=== PATIENT | male | born 1955 | race Caucasian/White ===

== ENCOUNTER 2025-05-08 23:00 | Emergency (ER) | payer OTHER, SELFPAY ==
[2025-05-08 23:04] VITALS: BMI 22.5
[2025-05-08 23:12] VITALS: BP 113/69
[2025-05-08 23:26] LABS: Hematocrit 30.0 % (39.0-52.0); Hemoglobin 9.4 g/dL (13.0-18.0); Mean Corp Hgb Conc. 31.3 g/dL (33.0-37.0); Mean Corpuscular Volume 80.4 fL (80.0-94.0); Nucleated Red Blood Cells % 0 % (-); Platelet Count 153 10^3/uL (130-400); Red Cell Dist. Width 15.8 % (11.5-14.5)
[2025-05-08 23:45] LABS: ALT (SGPT) 41 U/L (0-50); AST (SGOT) 48 U/L (17-59); Albumin 3.9 g/dl (3.5-5.0); Alkaline Phosphatase 63 U/L (38-126); Blood Urea Nitrogen 77 mg/dl (9-20); Calcium 9.0 mg/dl (8.4-10.2); Carbon Dioxide 20 mmol/L (22-30); Chloride 102 mmol/L (98-107); Estimated Creatinine Clearance 16 ml/min; Glucose 277 mg/dl (70-99); Potassium 5.2 mmol/L (3.5-5.1); Sodium 130 mmol/L (135-145); Total Protein 6.3 g/dl (6.3-8.2); eGFR 15.62
[2025-05-09 00:07] VITALS: BP 141/59
[2025-05-09 01:00] VITALS: BP 132/71
[2025-05-09 02:00] VITALS: BP 154/91
[2025-05-09 03:00] VITALS: BP 116/77
[2025-05-09 04:00] VITALS: BP 123/58
--- NOTE | 2025-05-09 04:26 | ED.GENMED ---
History of Present Illness
General
Chief Complaint: Fall
Source: patient
Exam Limitations: none
Time Seen by Provider: 05/08/25 23:16
Nursing documentation reviewed up to this point in time: agreed with
History of Present Illness
History of Present Illness:
Note:
CHIEF COMPLAINT(S)
Fall
HISTORY OF PRESENT ILLNESS
The patient is a 70-year-old male who presented to the emergency department after experiencing a fall. The circumstances surrounding the fall are unclear due to language barriers, but the phrase 'time to fall' was mentioned repeatedly. The patient
attempted to communicate in various languages, including what was presumed to be Kyrgyz and possibly Igbo, but communication was unsuccessful even with translation support. Further clarification of the incident and potential reasons for the fall
could not be obtained during the interaction due to these communication barriers.
PHYSICAL EXAM
General: Alert, no acute distress.
Skin: Warm, dry.
Head: Normocephalic, atraumatic.
Neck: Supple, trachea midline.
Eye, ears, nose, mouth, and throat: Oral mucosa moist.
Cardiovascular: Normal peripheral perfusion, no edema. Regular rate and rhythm
Respiratory: Respirations are non-labored. Lungs clear to auscultation bilaterally
Gastrointestinal: Abdomen non-distended.
Back: Normal range of motion, normal alignment.
Musculoskeletal: Normal range of motion, normal strength.
Neurological: Alert and oriented to person, place, time, and situation, no focal neurological deficit observed.
Psychiatric: Cooperative, appropriate mood & affect.
PROBLEM LIST
Acute:
Fall
DIFFERENTIAL DIAGNOSIS
The Differential Diagnosis includes, in no particular order and is not limited to:
1. Syncope
2. Vestibular dysfunction
3. Orthostatic hypotension
4. Transient ischemic attack
5. Cerebrovascular accident
6. Cardiac arrhythmia
7. Medication side effect
8. Dehydration
9. Neuropathy
10. Mechanical fall
Disposition:
SUMMARY OF ENCOUNTER
The patient, a 70-year-old male with a history of frequent falls from a skilled nursing, was evaluated in the emergency department after being found down. The patient did not have any specific complaints and appeared stable. A CT scan of the head was
performed and interpreted as negative, ruling out any acute intracranial pathology.
DISPOSITION
The patient was returned to the nursing facility after ensuring acceptance by the nursing staff.
INDEPENDENT REVIEW OF LABS AND INTERPRETATION OF TESTS
My independent interpretation of the CT scan of the head is negative for acute findings.
MEDICAL DECISION MAKING
- Complexity of Data Reviewed: Chronic conditions affecting care including history of frequent falls.
- Data:
- Category 1: My independent interpretation of the CT scan of the head is negative for acute findings.
- Risk: Consideration of Admission/Observation: Escalation of care including admission/observation was considered given the complexity and risk of the patients presenting complaint, history of frequent falls, and potential for significant injury.
However, ultimately I feel the patient is safe for return to the skilled nursing with close monitoring by the staff. The imaging study was reassuring, and the patient is agreeable with the return to the facility.
DIAGNOSIS
- Unspecified fall, initial encounter (ICD-10: W19.XXXA)
- Other specified intracranial injury, initial encounter (negative CT findings) (ICD-10: S06.898A)
Phy Exam
Physical Exam
Physical Exam:
.
Course
Orders/Labs/Results
Orders:
Orders
05/08/25 23:09
CT Head W/o Iv Contrast Urgent
Comment:
Reason For Exam: fell, poss hit head?
05/08/25 23:16
CT Cervical Spine W/o Iv Contr Urgent
Comment:
Reason For Exam: fall
05/08/25 23:18
Complete Blood Count/With Diff Urgent
Comprehensive Metabolic Panel Urgent
Abnormal Lab Results
05/08/25
23:18
RBC 3.73 L 10^6/uL
(4.70-6.10)
Hgb 9.4 L g/dL
(13.0-18.0)
Hct 30.0 L %
(39.0-52.0)
MCH 25.2 L pg
(27.0-31.0)
MCHC 31.3 L g/dL
(33.0-37.0)
RDW 15.8 H %
(11.5-14.5)
MPV 10.7 H fL
(7.4-10.4)
Abs Immat Gran (auto) 0.1 H 10^3/uL
(0-0.05)
Absolute Lymphs (auto) 0.9 L 10^3/uL
(1.2-3.4)
Immature Gran % 0.8 H %
(0-0.5)
Neutrophils % 82.6 H %
(42.2-75.2)
Lymphocytes % 12.3 L %
(20.5-51.1)
Sodium 130 L mmol/L
(135-145)
Potassium 5.2 H mmol/L
(3.5-5.1)
Carbon Dioxide 20 L mmol/L
(22-30)
BUN 77 H mg/dl
(9-20)
Creatinine 3.9 H mg/dL
(0.7-1.3)
Glucose 277 H mg/dl
(70-99)
05/08/25 23:18
05/08/25 23:18
Vital Signs
Initial and Last Documented VS:
Initial Vital Signs
Temp
98.2 F
05/08/25 23:04
Last Documented Vital Signs
Temp Pulse Resp BP Pulse Ox
98.2 F 75 18 154/91 100
05/08/25 23:04 05/08/25 23:12 05/08/25 23:12 05/09/25 02:00 05/09/25 04:27
*Radiology
Radiology exam reviewed: radiology read reviewed
*Pulse Oximetry
SaO2: 100
Patient hypoxic: no
*Critical Care Note
Total Time (30-74mins, 75-104mins- exclusive of procedures): Not Applicable
Update Note
Update Note:
NAME: SHIKHA VICK
DATE OF EXAM: 05/08/2025
Patient No: [id number]
Physician: LASHAY^Carleen
Date of : 1955
Past Medical History (entered by Technologist):
Reason For Exam (entered by Technologist):
Other Notes (entered by Technologist): pt arrives via EMS from [facility] after sustaining an unwitnessed fall. pt states he did not hit his head and fell onto his knees first, staff unsure. pt on plavix.
Additional Information (per [facility] Radiologist):
NONCONTRAST HEAD CT
IMPRESSION
No evidence of acute intracranial abnormality. No evidence of hemorrhage or mass.
Mild periventricular and subcortical regions of low attenuation likely representing chronic small vessel ischemic disease.
Ventricles and sulci are prominent compatible with mild atrophy.
Bones are unremarkable.
Sinuses are unremarkable.
NONCONTRAST CT CERVICAL SPINE:
IMPRESSION
Mild motion
No fractures. Mild anterolisthesis. This is probably related to degenerative changes, assuming no signs and symptoms of ligamentous instability.
Paraspinous soft tissues are unremarkable.
Stent in the right carotid
Case finalized on 05/09/25 00:18 EST
Hoa Moulton M.D.
This report has been electronically signed and verified by the Radiologist whose name is printed above.
ED Attending Note
-
Portions of this chart may have been created with voice recognition software.� Occasional wrong word or��sound alike� substitutions may have occurred due to the inherent limitations of voice recognition software.
Discharge Plan
Departure
Patient Disposition: Usp/SNF
Date of Disposition: 05/09/25
Time of Disposition: :
Condition: Fair
Discharge Problem:
Falls frequently
Instructions: Preventing falls in adults, BLOOD PRESSURE
Referrals:
Scott Sevilla MD [Family Provider]
Activity Restrictions/Additional Instructions:
Thank You for choosing [facility].
It was a pleasure meeting you and taking part in your care. We hope for your continued healing and wellness.
Please read discharge instructions in their entirety. However, they are for general education and may not describe your exact diagnosis at discharge. Information on your ER visit and medical conditions were discussed with you along with appropriate
follow up information...
If indicated, please take your medications as instructed and indicated on discharge paperwork.
Please schedule a follow up appointment as directed. Call to schedule an appointment
Please return to the emergency department with ANY change in, persisting, or worsening of symptoms. If any of your symptoms do not improve, or persist, or become more severe within 6-12 hours, please return to the emergency department for further
care.
Please return to the emergency department if you develop a headache, neck pain/stiffness, fever greater than 100.4F, chest pain, shortness of breath, persistent nausea, vomiting, slurred speech, difficulty walking, numbness/tingling, weakness, signs
of infection or any other symptoms that are worrisome to you.
If you have any questions or concerns please do not hesitate to call the Hospital at .
Interventions
Interventions:
*Risk Screen - Suicide Last Done: 05/08/25 23:04
*General Assessment Last Done: 05/08/25 23:04
*Neglect/Abuse Screening Last Done: 05/08/25 23:04
*ED- Fall Risk Assessment Last Done: 05/08/25 23:04
*ED COVID-19 Vaccine History Last Done: 05/08/25 23:04
*ED Influenza Vaccine History Last Done: 05/08/25 23:04
ED-Musculoskeletal Assessment Last Done: 05/08/25 23:04
ED- Neurological Assessment Last Done: 05/08/25 23:04
ED-Skin Assessment Last Done: 05/08/25 23:04
Discharge Date and Time
Print Language: South Korean
[2025-05-09 04:31] VITALS: BP 123/58
== END 2025-05-09 04:43 ==
LOC: EMR 23:00
PROVIDERS: EMERGENCY PHYSICIAN Student in an Organized Health Care Education/Training Program; FAMILY PHYSICIAN Internal Medicine
DX: R29.6 Repeated falls (principal); M43.10 Spondylolisthesis, site unspecified; Z79.02 Long term (current) use of antithrombotics/antiplatelets; W19.XXXA Unspecified fall, initial encounter; Y92.129 Unspecified place in nursing home as the place of occurrence of the external cause
CPT/HCPCS: 99284; 70450; 72125; 80053; 85025

== ENCOUNTER 2025-05-31 23:56 | Inpatient (IN) | payer MEDICARE, OTHER, SELFPAY ==
[2025-05-31 21:03] VITALS: BP 165/77
[2025-05-31 21:05] VITALS: BP 165/77
[2025-05-31 21:30] LABS: Hematocrit 20.5 % (39.0-52.0); Hemoglobin 6.4 g/dL (13.0-18.0); Mean Corp Hgb Conc. 31.2 g/dL (33.0-37.0); Mean Corpuscular Volume 80.1 fL (80.0-94.0); Nucleated Red Blood Cells % 0 % (-); Platelet Count 175 10^3/uL (130-400); Red Cell Dist. Width 18.5 % (11.5-14.5)
[2025-05-31 21:35] LABS: INR 1.28; PT 16.3 Sec (11.4-14.6)
[2025-05-31 22:00] VITALS: BP 165/80
[2025-05-31 22:04] LABS: ALT (SGPT) 13 U/L (0-50); AST (SGOT) 22 U/L (17-59); Albumin 3.7 g/dl (3.5-5.0); Alkaline Phosphatase 73 U/L (38-126); Blood Urea Nitrogen 55 mg/dl (9-20); Calcium 7.7 mg/dl (8.4-10.2); Carbon Dioxide 23 mmol/L (22-30); Chloride 105 mmol/L (98-107); Estimated Creatinine Clearance 16 ml/min; Glucose 125 mg/dl (70-99); Potassium 3.7 mmol/L (3.5-5.1); Sodium 138 mmol/L (135-145); Total Protein 6.2 g/dl (6.3-8.2); eGFR 15.62
--- NOTE | 2025-05-31 22:13 | ED.GENMED ---
History of Present Illness
General
Chief Complaint: Abnormal Lab Value
Source: patient and family (daughter states that the patient has had blood transfusions at an outside hospital [facility] in the past. She states he was also getting erythropoietin in the past. She does not recall his hemoglobin being as low as
6.4.)
Time Seen by Provider: 05/31/25 21:04
History of Present Illness
History of Present Illness:
Note:
CHIEF COMPLAINT(S)
Low hemoglobin level (6.4 g/dL).
HISTORY OF PRESENT ILLNESS
The patient is a 70-year-old male with a history of anemia who presented with significantly low hemoglobin levels at 6.4 g/dL. The red blood cell count is 2.4 million cells/mcL, and the hematocrit is 20%. The patient shows a baseline confusion
attributed to a mentioned episode of 'weird dementia.' He denies any pain or discomfort currently. The immediate concern is to determine the etiology of the drop in hemoglobin levels as no clear cause has been established.
PAST MEDICAL AND SURGICAL HISTORY
Anemia.\\
Dementia
Chronic kidney disease
Hypertension
Hyperlipidemia
Atrial fibrillation on Eliquis
CHF
GERD
Diabetes
CHRONIC MEDICAL CONDITIONS SIGNIFICANTLY AFFECTING CARE
Dementia.
PHYSICAL EXAM
General: Alert, no acute distress, though slightly confused.
Skin: Warm, dry.
Head: Normocephalic, atraumatic.
Neck: Supple, trachea midline.
Eye Ears, nose, mouth and throat: Oral mucosa moist.
Cardiovascular: Normal peripheral perfusion, no edema.
Respiratory: Respirations are non-labored.
Gastrointestinal: Abdomen is soft and non-tender.
Back: Normal range of motion, normal alignment.
Musculoskeletal: Normal range of motion, normal strength.
Neurological: Slight confusion, no focal neurological deficit observed.
Psychiatric: Cooperative, appropriate mood & affect.
Rectal Exam: Negative for blood.
EXTERNAL RECORDS REVIEWED
The patients past records were referenced for further evaluation of anemia management. Hemoglobin in April 2025 was 9.4
PROBLEM LIST
Acute:
- Anemic episode with severely low hemoglobin levels.
Chronic:
- Dementia
- Anemia
- Chronic kidney disease
PLAN
Further diagnostic workup to elucidate the cause of the current anemia. Review past external records, including previous blood work and imaging, if available.
DIFFERENTIAL DIAGNOSIS
The Differential Diagnosis includes, in no particular order and is not limited to:
1. Acute gastrointestinal bleed
2. Chronic kidney disease
3. Hemolytic anemia
4. Bone marrow suppression or infiltration
5. Vitamin B12 deficiency
6. Folate deficiency
7. Iron deficiency anemia
8. Leukemia
9. Myelodysplastic syndrome
10. Medication-induced anemia
Disposition:
SUMMARY OF ENCOUNTER
The patient, a 70-year-old male with a history of chronic renal failure, presented to the emergency department with severe anemia, with a hemoglobin level of 6.4 g/dL. This visit was prompted by outpatient lab results. The white blood cell count and
platelets were normal upon evaluation. Chemistry panels confirmed chronic renal failure with a creatinine level of 3.9, consistent with previous results from May 08, 2025. His hemoglobin was previously recorded at 9.4 g/dL in April 2025. The
patient is hemodynamically stable, displays baseline confusion, and denied any discomfort. A rectal exam was negative for blood. After discussing with his daughters, it was decided to transfuse the patient with two units of blood and admit him for
further management, as he is not a candidate for dialysis due to the likelihood of pulling out catheters.
DISPOSITION
Admit.
PLAN
Transfuse two units of blood and admit for further management of anemia and chronic renal failure.
INDEPENDENT REVIEW OF LABS AND INTERPRETATION OF TESTS
My independent review of CBC shows a hemoglobin level of 6.4 g/dL.
My independent review of comprehensive metabolic panel indicates chronic renal failure with a creatinine level of 3.9.
MEDICAL DECISION MAKING
-Number and Complexity of Problems Addressed: Chronic conditions affecting care include anemia and chronic renal failure. Differential diagnosis includes acute gastrointestinal bleed, chronic kidney disease, hemolytic anemia, bone marrow suppression
or infiltration, vitamin B12 deficiency, folate deficiency, iron deficiency anemia, leukemia, myelodysplastic syndrome, and medication-induced anemia.
-Data:
Category 1
Non-emergency department records reviewed, including past lab results.
External record reviewed from previous lab results: Hemoglobin levels from April 2025 indicating 9.4 g/dL and consistent creatinine levels.
Category 2
My independent interpretation of all prior lab values, confirming anemia and chronic renal impairment.
Category 3
Discussion of management with the patients daughters confirmed consent for blood transfusion and admission.
DIAGNOSIS
Severe anemia (D64.9)
Chronic kidney disease, Stage 3 (N18.3)
Phy Exam
Physical Exam
Physical Exam:
.
Course
Orders/Labs/Results
Orders:
Orders
05/31/25 21:17
IV Insert/Care/Rem.- Treatment PRN
05/31/25 21:18
Type+Screen Urgent
Complete Blood Count/With Diff Urgent
Comprehensive Metabolic Panel Urgent
Prothrombin Time Urgent
05/31/25 22:12
* Blood Bank Products Routine
Blood Bank Products: *Packed RBC Leuko (PRBC's
Quantity: 2
Transfuse Today: Yes
Reason: Anemia
IV Insert/Care/Rem.- Treatment PRN
Abnormal Lab Results
05/31/25
21:18
RBC 2.56 L 10^6/uL
(4.70-6.10)
Hgb 6.4 L* g/dL
(13.0-18.0)
Hct 20.5 L* %
(39.0-52.0)
MCH 25.0 L pg
(27.0-31.0)
MCHC 31.2 L g/dL
(33.0-37.0)
RDW 18.5 H %
(11.5-14.5)
Absolute Lymphs (auto) 0.9 L 10^3/uL
(1.2-3.4)
Lymphocytes % 18.2 L %
(20.5-51.1)
PT 16.3 H Sec
(11.4-14.6)
BUN 55 H mg/dl
(9-20)
Creatinine 3.9 H mg/dL
(0.7-1.3)
Glucose 125 H mg/dl
(70-99)
Calcium 7.7 L mg/dl
(8.4-10.2)
Total Protein 6.2 L g/dl
(6.3-8.2)
Crossmatch IS Only See Detail
05/31/25 21:18
05/31/25 21:18
Vital Signs
Initial and Last Documented VS:
Initial Vital Signs
Temp Pulse Resp Pulse Ox
97.5 F 83 20 100
05/31/25 21:00 05/31/25 21:00 05/31/25 21:00 05/31/25 21:00
Last Documented Vital Signs
Temp Pulse Resp BP Pulse Ox
97.5 F 83 20 165/77 100
05/31/25 21:00 05/31/25 21:00 05/31/25 21:00 05/31/25 21:05 05/31/25 22:15
*Pulse Oximetry
SaO2: 100
Oxygen Mode of Delivery: Room air
Patient hypoxic: no
*Critical Care Note
Total Time (30-74mins, 75-104mins- exclusive of procedures): 30 minutes
ED Attending Note
-
Portions of this chart may have been created with voice recognition software.� Occasional wrong word or��sound alike� substitutions may have occurred due to the inherent limitations of voice recognition software.
Discharge Plan
Departure
Patient Disposition: Admit
Date of Disposition: 05/31/25
Time of Disposition: 22:20
Admit to: Telemetry
Presentation/result/management discussed w/ accepting MD/DO: Hospitalist
Discharge Problem:
Anemia, Chronic renal failure
Referrals:
Scott Sevilla MD [Family Provider]
Interventions
Interventions:
*Risk Screen - Suicide Last Done: 05/31/25 21:05
*General Assessment Last Done: 05/31/25 21:05
*Neglect/Abuse Screening Last Done: 05/31/25 21:05
*ED- Fall Risk Assessment Last Done: 05/31/25 21:33
*ED COVID-19 Vaccine History Last Done: 05/31/25 21:33
*ED Influenza Vaccine History Last Done: 05/31/25 21:33
Discharge Date and Time
Print Language: Kuwaiti
[2025-05-31 22:56] VITALS: BP 160/94
[2025-05-31 23:15] VITALS: BP 153/67
--- NOTE | 2025-05-31 23:45 | HPS.HSE ---
Family Physician
-
Family Physician: Scott Sevilla MD
Chief Complaint
-
Anemia
History of Present Illness
Patient is a 70y M with PMH significant for ASCVD, A-Fib, hypertension and CKD IV who presents to ED for evaluation of anemia. Patient had routine outpatient labs done showing worsening anemia and he was sent to the ED for further evaluation.
Pateint is pleasantly demented and has no complaints at present. History obtained from patient and family at the bedside with family serving as interpreters.
Patient with recent admissions to [facility] where he has received the bulk of his care. Following his most recent hospitalization he was transferred to a new ME.
Labs were done today showing Hgb = 6.4 and patient was sent to the ED for evaluation.
Patient has not had any noted bleeding / evident blood loss. He has had some falls - most recent was about 10 days ago - but with no evident injury / significant trauma.
patient offers no complaints of chest pain, dyspnea, etc.
Family does note significant LE swelling that has been present for the past 5-7 days.
He was newly started on several medications in the past week including lorazepam, buspirone and bumetanide.
Daughter reports issues in the past with worsening anemia due to newly introduced Psych medications.
Patient was also previously maintained on EPO infusions every week or so - but has not received them in some time, reportedly b/c his Hgb has been out of range for treatment.
Family notes that his Hgb has chronically ranged from about 7 - 10 g/dL.
He is not a dialysis candidate. He is a high fall risk due to his dementia and baseline ambulatory dysfunction - he frequently gets OOB and tries to walk almost always resulting in falls.
Medical History
Past Medical History
Past Medical History: Reports Other
Additional Past Medical History:
ASCVD
CVA with L Weakness
Paroxysmal Atrial Fibrillation
Hypertension
DM-II
CKD IV
Anemia of CKD
Senile Dementia with Behavioral Disturbance
Past Surgical History: Reports Other
Additional Past Surgical History:
Right Carotid Stent
CABG
PPM
Social History
Tobacco: Non-smoker
Alcohol: None
Drug: None
Living: Care Home
Family History
Family History: Not pertinent
Allergies / Home Medications
Allergies reflects when Allergies were last updated in [employer].
Home Medications with original date entered in [employer]
Allergy/Medication List:
Allergies
Allergy/AdvReac Type Severity Reaction Status Date / Time
No Known Allergies Allergy Verified 05/31/25 21:00
Home Medications
acetaminophen 325 mg tablet (Tylenol) 650 mg PO Q6H PRN mild pain 05/31/25
amlodipine 10 mg tablet 10 mg PO DAILY 05/31/25
apixaban 2.5 mg tablet (Eliquis) 2.5 mg PO BID 05/31/25
atorvastatin 40 mg tablet 40 mg PO HS 05/31/25
bumetanide 1 mg tablet 1 mg PO DAILY 05/31/25
buspirone 5 mg tablet 5 mg PO BID 05/31/25
carvedilol 25 mg tablet 25 mg PO BID 05/31/25
cholecalciferol (vitamin D3) 25 mcg (1,000 unit) tablet 25 mcg PO DAILY 05/31/25
clopidogrel 75 mg tablet 75 mg PO DAILY 05/31/25
cyanocobalamin (vitamin B-12) 100 mcg tablet 100 mcg PO DAILY 05/31/25
divalproex 500 mg tablet,extended release 24 hr (Depakote ER) 500 mg PO DAILY 05/31/25
escitalopram oxalate 10 mg tablet (Lexapro) 10 mg PO DAILY 05/31/25
fluticasone furoate 27.5 mcg/actuation nasal spray,suspension 1 spray intranasal DAILY 05/31/25
folic acid 1 mg tablet 1 mg PO DAILY 05/31/25
hydralazine 25 mg tablet 25 mg PO TID 05/31/25
insulin aspart U-100 100 unit/mL subcutaneous solution (Novolog U-100 Insulin aspart) 1 sliding scale dose SC DIRECTED 05/31/25
achkcr-dawzdejx-yrcdxin (porcine) 16,000-60,000-60,000 unit tablet 1 tab PO AC 05/31/25
lorazepam 0.5 mg tablet 0.25 mg PO BID PRN anxiety 05/31/25
melatonin 3 mg tablet 6 mg PO HS 05/31/25
pantoprazole 40 mg tablet,delayed release 40 mg PO DAILY 05/31/25
sodium zirconium cyclosilicate 10 gram oral powder packet 10 g PO DAILY 05/31/25
tamsulosin 0.4 mg capsule 0.4 mg PO HS 05/31/25
trazodone 50 mg tablet 50 mg PO BID 05/31/25
trifluoperazine 2 mg tablet 4 mg PO BID 05/31/25
Review of Systems
-
Unable to obtain full review of systems at this time due to: Dementia
History Source: Patient and Family
Constitutional: Denies Fever
Respiratory: Denies Cough or Trouble Breathing
Cardiac: Denies Chest Pain or Palpitations
Abdomen/GI: Denies Abdominal Pain, Nausea, Vomiting, Diarrhea, Bloody Stools or Black Stools
: Denies Bleeding
Musculoskeletal: Reports Edema
Neurological: Denies Dizzy or Headache
Psych: Reports Dementia
Physical Exam
Vital Signs
Vital Signs
Temp Pulse Resp BP Pulse Ox
97.8 F 83 16 153/67 96
05/31/25 23:15 05/31/25 23:15 05/31/25 23:15 05/31/25 23:15 05/31/25 23:15
Physical Exam
General: Other (70y M in no acute distress.)
HEENT: Moist mucous membranes and PERRLA
Respiratory: Clear; No Wheezes, Rales or Rhonchi
Cardiac: S1/S2 and Irregular Rhythm; No Murmur
GI: Soft, Non Tender, Non Distended and Normal Bowel Sounds
Musculoskeletal: No Clubbing, No Cyanosis and Other (2+ pitting edema b/l LEs.)
Skin: Other (Few scattered superficial abrasions / bruises. No large hematoma, laceration, etc.)
Neuro: Awake, Alert and Other (Mild L facial droop. Some L weakness from prior stroke. No new deficits.); No Oriented
Laboratory Results
-
05/31/25 21:18
05/31/25 21:18
Laboratory Results
PT 16.3 Sec (11.4-14.6) H 05/31/25 21:18
INR 1.28 05/31/25 21:18
Total Bilirubin 0.2 mg/dl (0.2-1.3) 05/31/25 21:18
AST 22 U/L (17-59) 05/31/25 21:18
ALT 13 U/L (0-50) 05/31/25 21:18
Alkaline Phosphatase 73 U/L (38-126) 05/31/25 21:18
Impression/Plan
-
A/P: Patient is a 70y M with PMH significant for ASCVD, CKD IV, A-Fib and dementia who presents to ED for evaluation of worsened anemia.
Acute on Chronic Anemia of CKD
- Admit for further evaluation and treatment.
- No evidence of any active blood loss. No major injury, evident hematoma, etc.
- Heme negative stool in the ED.
- ? contribution of medication effects - with multiple medications potentially contributing to myelodyscrasias/ marrow suppression.
- ? result of cessation of EPO treatments.
- Transfusion ordered in the ED.
- Monitor for any evidence of gross blood loss.
- Continue usual Eliquis / Plavix for now.
- Nephrology evaluation - ? resume EPO.
- Check iron studies, etc for any other potential contributing etiology to anemia.
LE Edema
- New LE edema over the past several days per family.
- ? volume overload due to CKD / CHF. May contribute to some degree of false Hgb depression.
- Recently started on bumetanide (05/25).
- IV Lasix BID for now and follow for effect.
- Check Echo. Consider Cardiology evaluation if significant abnormalities.
- Obtain prior records from [facility] for review.
- Stop amlodipine for now.
CKD IV
- Stable. Hgb appears stable compared to limited prior values here.
- Not dialysis candidate per family due to his dementia / agitation.
- Follow lytes, I/Os, etc.
- Low sodium diet / fluid restriction / etc.
- Nephrology evaluation as noted above.
ASCVD
- Prior CABG / Prior CVA.
- No current complaints of chest pain, dyspnea, etc.
- Continue current CV med regimen including Plavix, etc.
Paroxysmal Atrial Fibrillation
- Stable. Continue carvedilol.
- Continue Eliquis for now - stop if any evidence of active bleeding / blood loss.
- s/p PPM.
DM-II
- Stable. Follow glucose and cover with SSI as needed.
- Update A1C.
Senile Dementia with Behavioral Disturbance
- Significant agitation / restlessness and issues with getting OOB / wandering despite poor baseline ambulatory function.
- Has been tried on multiple psychotropic medications apparently with varying adverse effects, worsening renal function / anemia, etc.
- Continue buspirone for now (though new) as it not typically associated with blood dyscrasias, kidney impairment, etc.
- Hold trifluoperazine which can cause myelosuppression / anemia.
- Psychiatry consulted at family request for review / med suggestions.
DVT Prophylaxis: On Eliquis
Code Status: Full
[2025-06-01] VITALS (11 sets, daily range): BP systolic 110–172; BP diastolic 40–96
--- NOTE | 2025-06-01 04:01 | PTCARENOTE ---
Pt arrived via stretcher and ambulated to bedside. Blood transfusing, VS stable, tele monitor placed. Pt disoriented to unit, bed alarm in place. Bed set in lowest position, side rails up, will continue plan of care.
--- NOTE | 2025-06-01 05:37 | PTCARENOTE ---
Blood transfusion completed, VS stable (See TAR). No signs and symptoms of distressed assessed.
[2025-06-01 06:42] LABS: INR 1.29; PT 16.3 Sec (11.4-14.6)
[2025-06-01 06:43] LABS: APTT 35.0 Sec (23.4-35.0)
[2025-06-01 07:05] LABS: Blood Urea Nitrogen 49 mg/dl (9-20); Calcium 7.5 mg/dl (8.4-10.2); Carbon Dioxide 21 mmol/L (22-30); Chloride 108 mmol/L (98-107); Estimated Creatinine Clearance 18 ml/min; Glucose 200 mg/dl (70-99); Iron 126 ug/dl (49-181); Potassium 3.6 mmol/L (3.5-5.1); Sodium 140 mmol/L (135-145); eGFR 16.64
[2025-06-01 07:15] LABS: Total Iron Binding Capacity 298 ug/dl (261-462)
[2025-06-01 07:16] LABS: Magnesium 1.2 mg/dl (1.6-2.3)
[2025-06-01 07:29] LABS: Ferritin 30.0 ng/ml (17.9-464.0)
[2025-06-01] MEDS: APRESOLINE 25 MG PO ×3 (07:58→21:55)
[2025-06-01] MEDS: LEXAPRO 10 MG PO (07:58)
[2025-06-01] MEDS: ZENPEP DELAYED RELEASE CAPSULE 1 CAPSULE PO ×2 (07:58→17:47)
[2025-06-01] MEDS: DEPAKOTE ER (24 HR RELEASE) 500 MG PO (07:58)
[2025-06-01] MEDS: COREG 25 MG PO ×2 (08:00→20:31)
[2025-06-01] MEDS: PROTONIX 40 MG PO (08:00)
[2025-06-01] MEDS: PLAVIX 75 MG PO (08:00)
[2025-06-01] MEDS: BUSPAR 5 MG PO ×2 (08:00→20:30)
[2025-06-01] MEDS: DESYREL 50 MG PO ×2 (08:00→20:32)
[2025-06-01] MEDS: ELIQUIS 2.5 MG PO ×2 (08:00→20:32)
[2025-06-01] MEDS: FOLVITE 1 MG PO (08:00)
[2025-06-01] MEDS: LASIX 40 MG IV (08:01)
[2025-06-01 09:05] LABS: Hematocrit 26.7 % (39.0-52.0); Hemoglobin 8.3 g/dL (13.0-18.0); Mean Corp Hgb Conc. 31.1 g/dL (33.0-37.0); Mean Corpuscular Volume 83.7 fL (80.0-94.0); Platelet Count 174 10^3/uL (130-400); Red Cell Dist. Width 17.4 % (11.5-14.5)
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
[2025-06-01] MEDS: ZYPREXA 10 MG IM (10:25)
[2025-06-01] MEDS: STERILE WATER FOR INJECTION 2.1 ML IM ×2 (10:25→13:09)
[2025-06-01] MEDS: ZENPEP DELAYED RELEASE CAPSULE PO (12:56)
[2025-06-01] MEDS: ZYPREXA 5 MG IM (13:08)
--- NOTE | 2025-06-01 13:11 | W.PN.UPDATE ---
Update Note
Progress Note Update
Psychiatric Evaluation Dictated.
Patient during the time of my interview was calm and cooperative. Was admitted due to anemia with initial Hb of 6.4. Jasiel lives in [facility] for last month, prior to that was 3 month at [facility] and prior to that was being
taken care of by his daughter. Based on conversation with daughter he was diagnosed with schizophrenia in [place] in his early twenties but was stabilized in intramuscular long acting antipsychotic ( apparently not Haldol or Prolixin ). He was able
to get and had 3 children. After having a stroke he decompensated and has frequent episodes of agitation and combative behaviors. He is now also diagnosed with dementia.
Daughter states he did not do well on Haldol and Seroquel. He was on trifluoperazine in [place] but that was stopped as it could contribute to anemia. He was given a shot of Zyprexa at 9AM which helped. Recently he is also on Depakote 500 daily,
Trazodone 50 bid, Buspar 5 bid which was started 1 week ago and Lexapro 10 mg daily which apparently helped.
I was later called as patient became agitated and aggressive, zohra staton was called and he was placed in restraints. I would D/C the Depakote as he is on a low dose and it could contribute to anemia. Will try Zyprexa 5 mg IM and 2.5 bid.
Discussed will daughter, will F/U through department.
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
[2025-06-01] MEDS: MAGNESIUM SULFATE 50 IV (14:35)
--- NOTE | 2025-06-01 14:55 | CM ---
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 Spoke with dgt Pauline she said he self propels in and uses walker. . she would like him to return to [facility] [place].
Pt was moved to a room closet to nurses desk for safety.
[facility]
PCP Dr Scott Sevilla
PLAN Return to [facility]
--- NOTE | 2025-06-01 15:57 | W.CON.NEPH ---
Consultation
-
Date/Time Consultation Requested: 06/01/25 0043
Date/Time Consultation Performed: 06/01/25 1430
Requesting Provider: Shree Smith
Performing Provider: Suzan García
Reason for Consultation: BRIDGETTE
Medical History
-
Chief Complaint: Anemia
History of Present Illness:
70y M with PMH significant for ASCVD, A-Fib AC wiht Eliquis, hypertension on AMlodipine, coreg, hydralazine and CKD IV GFR 18, schizophrenia on multiple meds who presents to ED for evaluation of anemia hb 6.4. Patient had routine outpatient labs
done showing worsening anemia and he was sent to the ED for further evaluation. Pateint is pleasantly demented and has no complaints at present. History obtained from chart and daughter on phone.
Patient with recent admissions to [facility] for close to 2m where he has received the bulk of his care. Following his most recent hospitalization he was transferred to a new [place] at [facility] and many meds were adjusted.
Family reports having LE edema since changing psych meds and his kidney function worsened, his baseline GFR was 18. bumex was added for edema. His pysch meds changes were addition of lorazepam, buspirone.
Patient was also previously maintained on EPO infusions every week or so while at [facility] and since [place] has not had these injections.
He was seen by Nephro at [facility] and family aware that he is not dialysis candidate. He is a high fall risk due to his dementia and baseline ambulatory dysfunction - he frequently gets OOB and tries to walk almost always resulting in falls.
Labs were done [facility] 05/31 showing Hgb = 6.4 from baseline 7-10. hence patient was sent to the ED for evaluation.
Patient has not had any noted bleeding / evident blood loss.
Since admit he had 2 units of PRBC with improving hb to 8.3. However he is more confused and walking out of the room. He is currently wrist restrined. He has tendecny to remove lines and tubes. HIsotry is very limited from pt.
Past Medical History
ASCVD
CVA with L Weakness
Paroxysmal Atrial Fibrillation
Hypertension
DM-II
CKD IV
Anemia of CKD
Senile Dementia with Behavioral Disturbance
Past Surgical History: Other (Right Carotid Stent CABG PPM)
Social History
Tobacco: Non-Smoker
Alcohol: None
Living: [facility]
Family History
Family History: Not Pertinent
Allergies / Home Medications
Allergy/AdvReac Type Severity Reaction Status Date / Time
Iodinated Contrast Media Allergy Severe Unknown Verified 06/01/25 00:01
�Medication �Instructions �Recorded �Confirmed �Type
acetaminophen 325 mg tablet 650 mg PO Q6H PRN mild pain 05/31/25 05/31/25 History
(Tylenol)
amlodipine 10 mg tablet 10 mg PO DAILY Blood Pressure 05/31/25 05/31/25 History
apixaban 2.5 mg tablet (Eliquis) 2.5 mg PO BID Blood Clot 05/31/25 05/31/25 History
Prevention/Tx
atorvastatin 40 mg tablet 40 mg PO HS High Cholesterol 05/31/25 05/31/25 History
bumetanide 1 mg tablet 1 mg PO DAILY Fluid 05/31/25 05/31/25 History
Retention/Swelling
buspirone 5 mg tablet 5 mg PO BID Antianxiety Agent, 05/31/25 05/31/25 History
carvedilol 25 mg tablet 25 mg PO BID Blood Pressure 05/31/25 05/31/25 History
cholecalciferol (vitamin D3) 25 25 mcg PO DAILY Supplement 05/31/25 05/31/25 History
mcg (1,000 unit) tablet
clopidogrel 75 mg tablet 75 mg PO DAILY Blood Clot 05/31/25 05/31/25 History
Prevention/Tx
cyanocobalamin (vitamin B-12) 100 100 mcg PO DAILY Supplement 05/31/25 05/31/25 History
mcg tablet
divalproex 500 mg tablet,extended 500 mg PO DAILY Seizures 05/31/25 05/31/25 History
release 24 hr (Depakote ER)
escitalopram oxalate 10 mg tablet 10 mg PO DAILY Mental 05/31/25 05/31/25 History
(Lexapro) Health/Anxiety
fluticasone furoate 27.5 1 spray intranasal DAILY Congestion 05/31/25 05/31/25 History
mcg/actuation nasal
spray,suspension
folic acid 1 mg tablet 1 mg PO DAILY Supplement 05/31/25 05/31/25 History
hydralazine 25 mg tablet 25 mg PO TID Blood Pressure 05/31/25 05/31/25 History
insulin aspart U-100 100 unit/mL 1 sliding scale dose SC 05/31/25 05/31/25 History
subcutaneous solution (Novolog DIRECTED Diabetes
U-100 Insulin aspart)
[id number]-[id number]-elqnusp (porcine) 1 tab PO AC Supplement 05/31/25 05/31/25 History
16,000-60,000-60,000 unit tablet
lorazepam 0.5 mg tablet 0.25 mg PO BID PRN anxiety 05/31/25 05/31/25 History
melatonin 3 mg tablet 6 mg PO HS Sleep 05/31/25 05/31/25 History
pantoprazole 40 mg tablet,delayed 40 mg PO DAILY GERD 05/31/25 05/31/25 History
release
sodium zirconium cyclosilicate 10 10 g PO DAILY Potassium Binder 05/31/25 05/31/25 History
gram oral powder packet
tamsulosin 0.4 mg capsule 0.4 mg PO HS Urinary Issue 05/31/25 05/31/25 History
trazodone 50 mg tablet 50 mg PO BID Mental Health/Anxiety 05/31/25 05/31/25 History
trifluoperazine 2 mg tablet 4 mg PO BID Mental Health/Anxiety 05/31/25 05/31/25 History
Review of Systems
-
Unable to obtain full review of systems at this time due to: Dementia
Physical Exam
Vital Signs
Vital Signs
Temp Pulse Resp BP Pulse Ox
98.1 F 78 17 172/87 96
06/01/25 15:14 06/01/25 15:14 06/01/25 15:14 06/01/25 15:14 06/01/25 15:14
Lab Results
WBC 5.4 10^3/uL (4.8-10.8) 06/01/25 06:01
RBC 3.19 10^6/uL (4.70-6.10) L 06/01/25 06:01
Hgb 8.3 g/dL (13.0-18.0) L D 06/01/25 06:01
Hct 26.7 % (39.0-52.0) L 06/01/25 06:01
Plt Count 174 10^3/uL (130-400) 06/01/25 06:01
Sodium 140 mmol/L (135-145) 06/01/25 06:01
Potassium 3.6 mmol/L (3.5-5.1) 06/01/25 06:01
Chloride 108 mmol/L (98-107) H 06/01/25 06:01
Carbon Dioxide 21 mmol/L (22-30) L 06/01/25 06:01
BUN 49 mg/dl (9-20) H 06/01/25 06:01
Creatinine 3.7 mg/dL (0.7-1.3) H 06/01/25 06:01
eGFR 16.64 06/01/25 06:01
Glucose 200 mg/dl (70-99) H 06/01/25 06:01
Calcium 7.5 mg/dl (8.4-10.2) L 06/01/25 06:01
Phosphorus 3.9 mg/dl (2.5-4.5) 06/01/25 06:01
Albumin 3.7 g/dl (3.5-5.0) 05/31/25 21:18
Physical Exam
General: Awake, Alert, No Distress and Nontoxic
HEENT: EOMI, Anicteric and Facial Symmetry
Respiratory: Clear, Normal Excursion and Nonlabored Respirations
Cardiac: S1/S2 and Regular Rate/Rhythm
Breast: Deferred by me
Rectal: Deferred by Provider
Musculoskeletal: Edema (trace)
Skin: No Rash
Neuro: Other (able to move all extremities)
Psych: Other (confused, agitated)
Data Reviewed
-
Labs: Labs Reviewed by me, Discussed with Nurse and Discussed with Family
Assessment/Plan
-
IMP:
Acute on Chronic Anemia of CKD
LE Edema
CKD IV
Hypomagnesemia
ASCVD- Prior CABG / Prior CVA.
Paroxysmal Atrial Fibrillation
DM-II
Senile Dementia with Behavioral Disturbance
Schizophrenia
Plan:
A/w acute on chr anemia
with recent adjustment of psych meds
ckd-cr seem stable and not dialysis candidate
replace mg
anemia-adequate fe stores and check vit b12 and foalte
will dose DEBRA today, no apparent bleeding
since he is at [facility] not sure availability of DEBRA -need heme out ot f/u for this if possible
Bp stable, off amlodpine for edema
hold diuresis now that barely he has any edema and he is supine with out resp distress
d/w nursing and daughter on phone in detail
[2025-06-01] MEDS: LASIX IV (17:14)
[2025-06-01 17:44] LABS: Glucose - Point of Care 116 mg/dl (70-99)
[2025-06-01] MEDS: FERRLECIT 110 MG IV (17:44)
[2025-06-01] MEDS: NOVOLOG FLEXPEN-MODERATE RESISTANCE SC (17:45)
--- NOTE | 2025-06-01 17:58 | PTCARENOTE ---
At 1750, pt went into Vtach with HR 180 that lasted about 4.5 seconds. MD made aware. Cardiac strip placed in chart. surveillance system monitor maintained and is monitored.
[2025-06-01 18:19] LABS: Folate > 20.0 ng/ml (2.76-20); Vitamin B12 773 pg/ml (239-931)
--- NOTE | 2025-06-01 18:22 | W.PN.UPDATE ---
Update Note
Progress Note Update
Received text from nurse at 1800 with concerns of run of VT on telemetry. No symptoms associated per report
I personally reviewed the patient's chart and his telemetry strip. Has history of bundle branch block, unclear if this represents SVT with aberrancy versus true monomorphic V. tach. There does seem to be a brief pause following the VT with
conversion back to atrial fibrillation. Concern for run of NSVT
Morning labs with Mg 1.2, K 3.6. Just finished 2 g IV mag sulfate repletion. Ordered an additional 1 g magnesium sulfate and 40 mEq KCl with goals K >4 and mag >2. Echocardiogram ordered for Monday to assess LVEF.
Cardiology consult placed
[2025-06-01] MEDS: KCL 40 MEQ PO (19:28)
[2025-06-01] MEDS: MAGNESIUM SULFATE 100 IV (19:32)
[2025-06-01] MEDS: RETACRIT 10000 UNITS SC (20:29)
[2025-06-01] MEDS: ZYPREXA 2.5 MG PO (20:32)
[2025-06-01] MEDS: LIPITOR 40 MG PO (21:56)
[2025-06-01] MEDS: FLOMAX 0.4 MG PO (21:56)
[2025-06-01] MEDS: MELATONIN 6 MG PO (21:56)
[2025-06-01 23:34] LABS: Glucose - Point of Care 150 mg/dl (70-99)
[2025-06-02] VITALS (7 sets, daily range): BP systolic 98–178; BP diastolic 65–82; PULSE 70–72; O2SAT 99
[2025-06-02 07:28] LABS: Glucose - Point of Care 149 mg/dl (70-99)
[2025-06-02] MEDS: NOVOLOG FLEXPEN-MODERATE RESISTANCE SC (07:44)
--- NOTE | 2025-06-02 08:17 | CON.CAR ---
Addendum entered and electronically signed by Navdeep Hicmkan MD 06/02/25 13:56:
Correction will not add Toprol. Patient already on Coreg
Addendum entered and electronically signed by Navdeep Hickman MD 06/02/25 13:55:
I saw and examined the patient.
The JOINER or PA's note was reviewed and I agree with the note.
Comment: General: Sleeping at present
Neck: Supple, no JVD, HJR, carotids +2 B/L, no bruits bilaterally.
Heart: Non displaced PMI, RRR, no murmurs, No S3, S4, no rubs.
Lungs: Scattered rhonchi
Extremities: No clubbing, cyanosis or edema bilaterally.
Neuro: Sleeping at present
Kirill has a history of coronary disease status post four-vessel bypass in 2018 at [facility], hypertension, hyperlipidemia, diabetes, CVA with left-sided weakness, carotid stenosis status post carotid stent, PAF on chronic Eliquis,
stage IV CKD, schizophrenia, dementia. He presented from [facility] with weakness and worsening anemia and hemoglobin of 6.4. There was concern for CHF with proBNP of 13,900 and is getting IV diuresis. Cardiology consulted for
nonsustained V. tach on telemetry.
Echocardiogram with normal ejection fraction. Patient has monitoring device and will attempt to interrogate it to determine whether VT is chronic. Will add low-dose Toprol.
Original Note:
Consultation
Consultation Request
Date/Time Consultation Requested: 06/01/2025
Date/Time Consultation Performed: 06/02/2025
Requesting Provider: Dr. Moffett
Performing Provider: Nilam Gamboa PA-C for Dr. Hickman
Reason for Consultation: NSVT
Medical History
-
History of Present Illness:
Patient is a 70-year-old [place]-speaking male with past medical history significant for coronary artery disease status post CABG times 10/2017, hypertension, hyperlipidemia, type 2 diabetes, CKD, paroxysmal atrial fibrillation on chronic
anticoagulation with Eliquis, stroke with reoccurrence in 2023 in setting of carotid stenosis for which she underwent carotid stent, deconditioning and ambulatory dysfunction who presented from [facility] to [facility] 06/01/2035 weakness
with worsening and anemia with presenting hemoglobin of 6.4. Patient received 2 units of packed RBCs. Concern for volume overload with elevated proBNP of 13,900. Patient receiving IV diuresis. Patient did have 15 beat run of NSVT on telemetry on
06/02/2025 in setting of electrolyte disturbance with potassium of 3.6 and magnesium of 1.2. Patient also on multiple psychiatric medications that could cause QT prolongation including Lexapro, trazodone and Zyprexa. Given concern for heart
failure and NSVT cardiology has been consulted.
PMH:
Coronary artery disease
Status post CABG x 4 2018 [facility]
Hypertension
Hyperlipidemia
Type 2 diabetes
Stroke with residual left-sided weakness 2022, recurrent stroke 2023 in setting of carotid disease
Carotid stenosis status post carotid stent [facility] 2023
Paroxysmal atrial fibrillation
Chronic anticoagulation with Eliquis
Medtr[employer]
CKD stage IV
Schizophrenia
Dementia
Ambulatory dysfunction with falls
Past Medical History
Past Medical History: Other (see HPI)
Past Surgical History: Cardiac (CABG x 4 2017 [facility], Medtronic Linq) and Other (Carotid stent 2023)
Social History
Tobacco: Former Smoker (Cigarettes and cigars)
Alcohol: None
Living: Halfway ([facility])
Family History
Family History: Reviewed & Not Pertinent
Allergies / Home Medications
Allergy/AdvReac Type Severity Reaction Status Date / Time
Iodinated Contrast Media Allergy Severe Unknown Verified 06/01/25 00:01
�Medication �Instructions �Recorded �Confirmed �Type
acetaminophen 325 mg tablet 650 mg PO Q6H PRN mild pain 05/31/25 05/31/25 History
(Tylenol)
amlodipine 10 mg tablet 10 mg PO DAILY Blood Pressure 05/31/25 05/31/25 History
apixaban 2.5 mg tablet (Eliquis) 2.5 mg PO BID Blood Clot 05/31/25 05/31/25 History
Prevention/Tx
atorvastatin 40 mg tablet 40 mg PO HS High Cholesterol 05/31/25 05/31/25 History
bumetanide 1 mg tablet 1 mg PO DAILY Fluid 05/31/25 05/31/25 History
Retention/Swelling
buspirone 5 mg tablet 5 mg PO BID Antianxiety Agent, 05/31/25 05/31/25 History
carvedilol 25 mg tablet 25 mg PO BID Blood Pressure 05/31/25 05/31/25 History
cholecalciferol (vitamin D3) 25 25 mcg PO DAILY Supplement 05/31/25 05/31/25 History
mcg (1,000 unit) tablet
clopidogrel 75 mg tablet 75 mg PO DAILY Blood Clot 05/31/25 05/31/25 History
Prevention/Tx
cyanocobalamin (vitamin B-12) 100 100 mcg PO DAILY Supplement 05/31/25 05/31/25 History
mcg tablet
divalproex 500 mg tablet,extended 500 mg PO DAILY Seizures 05/31/25 05/31/25 History
release 24 hr (Depakote ER)
escitalopram oxalate 10 mg tablet 10 mg PO DAILY Mental 05/31/25 05/31/25 History
(Lexapro) Health/Anxiety
fluticasone furoate 27.5 1 spray intranasal DAILY Congestion 05/31/25 05/31/25 History
mcg/actuation nasal
spray,suspension
folic acid 1 mg tablet 1 mg PO DAILY Supplement 05/31/25 05/31/25 History
hydralazine 25 mg tablet 25 mg PO TID Blood Pressure 05/31/25 05/31/25 History
insulin aspart U-100 100 unit/mL 1 sliding scale dose SC 05/31/25 05/31/25 History
subcutaneous solution (Novolog DIRECTED Diabetes
U-100 Insulin aspart)
noopzx-wbblqyeu-bpviukq (porcine) 1 tab PO AC Supplement 05/31/25 05/31/25 History
16,000-60,000-60,000 unit tablet
lorazepam 0.5 mg tablet 0.25 mg PO BID PRN anxiety 05/31/25 05/31/25 History
melatonin 3 mg tablet 6 mg PO HS Sleep 05/31/25 05/31/25 History
pantoprazole 40 mg tablet,delayed 40 mg PO DAILY GERD 05/31/25 05/31/25 History
release
sodium zirconium cyclosilicate 10 10 g PO DAILY Potassium Binder 05/31/25 05/31/25 History
gram oral powder packet
tamsulosin 0.4 mg capsule 0.4 mg PO HS Urinary Issue 05/31/25 05/31/25 History
trazodone 50 mg tablet 50 mg PO BID Mental Health/Anxiety 05/31/25 05/31/25 History
trifluoperazine 2 mg tablet 4 mg PO BID Mental Health/Anxiety 05/31/25 05/31/25 History
Physical Exam
Vital Signs
Temp Pulse Resp BP Pulse Ox
97.7 F 73 16 178/82 96
06/02/25 07:13 06/02/25 07:13 06/02/25 07:13 06/02/25 07:13 06/02/25 07:13
GEN: No distress, sleepy but arousable
HEENT: supple, anicteric, mmm
LUNGS: CTA, no wheezes/rales
CV: Reg, S1/S2, 1/6 syst murmur, no rub or gallop
ABD: soft, BS+, NT/ND
EXT: No edema, no clubbing or cyanosis
NEURO: Pleasantly demented, sleepy but arousable
SKIN: No rash, warm, dry, pink
Lab Results
Xkg-T-Vubnsbmyfey Pept 51845 pg/ml 06/01/25 06:01
Impression / Plan
-
PCP: Radha Aldana
Or[employer] Solutions Architect: Dr. Scott Sanon
Impression:
Presented with anemia
Acute on chronic anemia secondary to anemia of chronic disease
Status post 2 unit packed RBC
Electrolyte derangement
NSVT
Acute heart failure with preserved ejection fraction
Coronary artery disease
Status post CABG x 2017 [facility]
Hypertension
Hyperlipidemia
Type 2 diabetes
Stroke with residual left-sided weakness 2022, recurrent stroke 2023 in setting of carotid disease
Carotid stenosis status post carotid stent [facility] 2023
Paroxysmal atrial fibrillation
Chronic anticoagulation with Eliquis
CKD stage IV
Schizophrenia
Dementia
Ambulatory dysfunction with falls
Echo 06/02/2025: EF 55 to 60%. Mild concentric LVH. Mildly dilated right atrium. Thickened aortic valve with mild AI. Mild aortic stenosis with mean gradient 2 mmHg. Mildly dilated aortic root measuring 3.8 cm at sinus of Valsalva
Echo August 2022 [facility]: EF 75%, no significant valve disease
Plan:
-Presented 06/01/2025 with worsening anemia.
- Acute on chronic anemia felt to be anemia of chronic disease secondary to stage IV CKD as well as iron deficiency anemia. Heme negative in the ED, no evidence of active bleeding. Status post 2 units packed RBCs with improvement of hemoglobin.
Also receiving IV iron. Patient had been getting EPO as outpatient but not recently.
NSVT 15 beats on telemetry 06/01/2025. This occurred in setting of electrolyte disturbance with potassium of 3.6 and magnesium of 1.2. Potassium and magnesium with ongoing repletion. Would keep K greater than 4, mag greater than 2
- Patient recently started on new psych meds (lexapro) which could potentially cause QT prolongation. EKG checked AM of 06/02/2025 which demonstrated QTc of 476 ms. Lexapro has been discontinued and Zyprexa and Trazodone doses have been reduced
this admission.
- Echocardiogram 06/02/2025 demonstrates preserved ejection fraction and mild AI and MS.
- Patient according to outpatient records has Medtronic Linq monitor after recurrent stroke. It does not appear that patient has a pacemaker. Attempted to interrogate device via [employer] but device not identified. Reached out to to
[employer] rep who does not have patient in their system. Will reach out to cardiology office for further clarification will have device interrogated for clarification
- Continue Coreg
Chronic heart failure with preserved ejection fraction. proBNP this admission 13,900 after 2 units of blood.
- Patient received 40 mg IV Lasix on 06/01/2025. Nephrology on board as patient has CKD stage IV and has placed diuresis on hold. Not candidate for dialysis per nephrology.
-Echo as noted above with preserved ejection fraction
-Continue to monitor electrolytes closely
Paroxysmal atrial fibrillation
- Patient maintained on chronic anticoagulation as outpatient due to prior history of recurrent stroke.
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
History of coronary artery disease/CABG times 10/2017.
- Was maintained on Plavix and low-dose Eliquis as outpatient. Could consider Eliquis and aspirin given ongoing anemia.
- Continue Coreg and atorvastatin.
HPI 06/02/2025:
Patient is a 70-year-old [place]-speaking male with past medical history significant for coronary artery disease status post CABG times 10/2017, hypertension, hyperlipidemia, type 2 diabetes, CKD, paroxysmal atrial fibrillation on chronic
anticoagulation with Eliquis, stroke with reoccurrence in 2023 in setting of carotid stenosis for which she underwent carotid stent, deconditioning and ambulatory dysfunction who presented from [facility] to [facility] 06/01/2035 weakness
with worsening and anemia with presenting hemoglobin of 6.4. Patient received 2 units of packed RBCs. Concern for volume overload with elevated proBNP of 13,900. Patient receiving IV diuresis. Patient did have 15 beat run of NSVT on telemetry on
06/02/2025 in setting of electrolyte disturbance with potassium of 3.6 and magnesium of 1.2. Given concern for heart failure and NSVT cardiology has been consulted.
Data Reviewed
-
EKG: Report Reviewed by me, Discussed with Physician and Discussed with Nurse
Medical Tests (Nuc Med, Echo etc): Report Reviewed by me, Discussed with Physician and Discussed with Patient
Labs: Labs Reviewed by me, Discussed with Physician and Discussed with Patient
Old Records: Reviewed
[2025-06-02] MEDS: ZENPEP DELAYED RELEASE CAPSULE 1 CAPSULE PO ×3 (08:51→16:50)
[2025-06-02] MEDS: PROTONIX 40 MG PO (08:51)
[2025-06-02] MEDS: ELIQUIS 2.5 MG PO ×2 (08:51→20:19)
[2025-06-02] MEDS: APRESOLINE 25 MG PO ×3 (08:51→23:03)
[2025-06-02] MEDS: LEXAPRO 10 MG PO (08:51)
[2025-06-02] MEDS: FOLVITE 1 MG PO (08:51)
[2025-06-02] MEDS: BUSPAR 5 MG PO ×2 (08:52→20:30)
[2025-06-02] MEDS: PLAVIX 75 MG PO (08:52)
[2025-06-02] MEDS: DESYREL 50 MG PO (08:52)
[2025-06-02] MEDS: COREG 25 MG PO ×2 (08:52→20:21)
[2025-06-02] MEDS: ZYPREXA 2.5 MG PO ×2 (08:52→23:01)
--- NOTE | 2025-06-02 11:38 | W.PN.UPDATE ---
Update Note
Progress Note Update
patient seen chart reviewed. patient has hx anemia confusion dementia htn hld a fib and other arrhythmia chf gerd dm ckd. spoke with nursing and with PT . the patient was very sedated this am. he was snoring loudly. he had just been up to the
bathroom at his own request with PT. they report he was unable to hold self upright and it required much effort to get him to BR . on a + note he did toilet himself and was able to wipe himself and wash his hands but getting him then back to bed
was very difficult upon which he immediately fell to sleep. have cut out morning zyprexa and reduced trazodone to 25 mg q bid. noted there is concern re qtc. he is on lexapro which is the one antidep where qtc really concerns. have dc'ed for now.
noted depakote dc'ed given recurrent issues with anemia. there is a prn ativan which he has not used will follow.
[2025-06-02 11:48] LABS: Hematocrit 28.3 % (39.0-52.0); Hemoglobin 8.8 g/dL (13.0-18.0); Mean Corp Hgb Conc. 31.1 g/dL (33.0-37.0); Mean Corpuscular Volume 84.0 fL (80.0-94.0); Platelet Count 194 10^3/uL (130-400); Red Cell Dist. Width 17.7 % (11.5-14.5)
[2025-06-02 12:06] LABS: Glucose - Point of Care 210 mg/dl (70-99)
[2025-06-02 12:54] LABS: Glycohemoglobin (HgbA1c) 6.0 % (4.0-5.9)
[2025-06-02 12:58] LABS: Blood Urea Nitrogen 44 mg/dl (9-20); Calcium 8.1 mg/dl (8.4-10.2); Carbon Dioxide 25 mmol/L (22-30); Chloride 106 mmol/L (98-107); Estimated Creatinine Clearance 19 ml/min; Glucose 211 mg/dl (70-99); Magnesium 1.9 mg/dl (1.6-2.3); Potassium 4.6 mmol/L (3.5-5.1); Sodium 137 mmol/L (135-145); eGFR 18.41
[2025-06-02] MEDS: NOVOLOG FLEXPEN-MODERATE RESISTANCE 3 UNITS SC (13:04)
[2025-06-02] MEDS: FERRLECIT 110 MG IV (13:08)
--- NOTE | 2025-06-02 13:10 | W.PN.NEPH.PH ---
Today's Communication / Plan
-
Observed
DEBRA provided on 06/01/2025 for anemia
Assessment/Plan
-
IMP:
Acute on Chronic Anemia of CKD
LE Edema
CKD IV
Hypomagnesemia
ASCVD- Prior CABG / Prior CVA.
Paroxysmal Atrial Fibrillation
DM-II
Senile Dementia with Behavioral Disturbance
Schizophrenia
Plan:
A/w acute on chr anemia
with recent adjustment of psych meds
ckd-cr seem stable and not dialysis candidate : creatinine at 3.4
anemia-adequate fe stores and check vit b12 and foalte
dosed DEBRA on 06/01 no apparent bleeding
since he is at [facility] not sure availability of DEBRA -need heme out ot f/u for this if possible
Bp stable, off amlodpine for edema
hold diuresis now that barely he has any edema and he is supine with out resp distress
-
-
Date of Service: June 02, 2025
CC / HPI / ROS
-
Chief Complaint:
CKD stage IV
History of Present Illness:
Creatinine stable at 3.4
Hemodynamically stable
Hemoglobin up to 8.8 following DEBRA administration on 06/01/2025
Review of Systems:
Urine output not recorded incontinent
No fever
Lethargic
Labs
-
Labs:
WBC 5.6 10^3/uL (4.8-10.8) 06/02/25 11:29
RBC 3.37 10^6/uL (4.70-6.10) L 06/02/25 11:29
Hgb 8.8 g/dL (13.0-18.0) L 06/02/25 11:29
Hct 28.3 % (39.0-52.0) L 06/02/25 11:29
Plt Count 194 10^3/uL (130-400) 06/02/25 11:29
Sodium 137 mmol/L (135-145) 06/02/25 11:29
Potassium 4.6 mmol/L (3.5-5.1) D 06/02/25 11:29
Chloride 106 mmol/L (98-107) 06/02/25 11:29
Carbon Dioxide 25 mmol/L (22-30) 06/02/25 11:29
BUN 44 mg/dl (9-20) H 06/02/25 11:29
Creatinine 3.4 mg/dL (0.7-1.3) H 06/02/25 11:29
eGFR 18.41 06/02/25 11:29
Glucose 211 mg/dl (70-99) H 06/02/25 11:29
Calcium 8.1 mg/dl (8.4-10.2) L 06/02/25 11:29
Phosphorus 3.9 mg/dl (2.5-4.5) 06/01/25 06:01
Jvw-K-Bphqcykpxgp Pept 26101 pg/ml 06/01/25 06:01
Albumin 3.7 g/dl (3.5-5.0) 05/31/25 21:18
Physical Exam
-
Vital Signs:
Vital Signs
Temp Pulse Resp BP Pulse Ox
97.7 F 75 18 156/72 97
06/02/25 11:03 06/02/25 11:03 06/02/25 11:03 06/02/25 11:03 06/02/25 11:45
Cardiovascular:: Regular rate and rhythm
Respiratory:: Bilateral: Coarse
Lung Excursion:: Normal
Abdomen:: Nontender and Soft
Bowel Sounds:: Normal
Extremity Edema:: None: Bilateral: (trace)
Escalera Catheter: No
--- NOTE | 2025-06-02 15:39 | W.PN.HOSP.TC ---
Today's Communication/Plan
-
Linq interrogation per cardiology
Watch pt
If stable ? Discharge tomorrow
Assessment / Plan
Assessment / Plan
70-year-old female presented from [place] with weakness and worsening anemia with a hemoglobin of 6.4.
Confused
CVS: S1-S2 normal
Chest: CTA B/L
Abdomen: Soft, NT
Extremities: No edema
# Acute on chronic anemia
Received 2 units of PRBCs
Hemoglobin stable. Heme test stools
Iron studies noted-adequate
Got DEBRA on 06/01
# Acute HFpEF-proBNP 13,900 - On Bumex 1 mg daily as outpatient
Cardiology consulted and following
Continue IV Lasix
ECHO-EF 55 to 60% with a mildly dilated aortic root measuring 3.8 cm. Trileaflet thickened aortic valve with adequate leaflet excursion. Mild AI. Mild concentric LVH. Mildly dilated RA.
# NSVT-15 beats run on 06/01/2025 in the setting of electrolyte disturbance.Linq monitor interrogation
# Coronary disease with history of CABG in 2017 at [place]
# Paroxysmal atrial fibrillation-on Eliquis and carvedilol as outpatient-continue
# Hypomagnesemia-replaced.
# Hypertension-on Coreg 25 mg twice daily, amlodipine 10 mg daily, hydralazine 25 mg 3 times daily
# Hyperlipidemia/Atherosclerosis-continue statin
# Type 2 diabetes-hemoglobin A1c not reliable. Continue Accu-Cheks and sliding scale coverage.
# Stroke with residual left-sided weakness in 2022. Recurrent stroke in 2023 in the setting of carotid disease, status post carotid stent placement at [facility] 2023. Also on Plavix as outpatient
# CKD stage IV-nephrology following with diuresis. Watch creatinine. Patient takes sodium zirconium 10 mg daily as outpatient
# Schizophrenia-On buspirone, Depakote, Lexapro, trazodone 50 mg twice daily, trifluoperazine 4 mg p.o. twice daily, lorazepam 0.25 mg twice daily as needed for anxiety as outpatient.
Delirium/agitation with code brionna called on 06/01/2025-patient placed on restraints.
Depakote discontinued
Currently on BuSpar 5 mg p.o. twice daily, Lexapro 10 mg daily, Ativan 0.25 mg p.o. every 6 hours as needed, Zyprexa 2.5 mg p.o. twice daily, trazodone 50 mg p.o. twice daily
# GERD-continue PPI
# Enlarged prostate-continue Flomax
# Diabetic retinopathy
# Dementia
# Ambulatory dysfunction with history of falls
# DVT prophylaxis-Eliquis
# Full code
Spoke to daughter and updated.
D/W RN
D/W Cards
Part of this note was created using voice recognition system. Occasional wrong word or��sound alike� substitutions may have inadvertently occurred due to the inherent limitations of voice recognition software. If noted kindly bring it to my
attention for correction.
Anticipated Discharge: Within 24 hours
Subjective/Interval History
-
Date of Service: June 02, 2025
Objective Data
-
Labs:
Laboratory Results
06/02/25
11:29
WBC 5.6
Hgb 8.8 L
Hct 28.3 L
Plt Count 194
Sodium 137
Potassium 4.6 D
Chloride 106
Carbon Dioxide 25
BUN 44 H
Creatinine 3.4 H
Glucose 211 H
Calcium 8.1 L
Vital Signs:
Vital Signs
Temp Pulse Resp BP Pulse Ox
98.1 F 76 17 150/80 96
06/02/25 15:28 06/02/25 15:28 06/02/25 15:28 06/02/25 15:28 06/02/25 15:28
I&O
06/01/25 06/02/25 06/03/25
06:59 06:59 06:59
Intake Total 500 / 500 120 / 120
Output Total 150 / 150
Balance 350 / 350 120 / 120
[2025-06-02 16:32] LABS: Glucose - Point of Care 172 mg/dl (70-99)
[2025-06-02] MEDS: NOVOLOG FLEXPEN-MODERATE RESISTANCE 1 UNITS SC (16:51)
[2025-06-02] MEDS: ATIVAN 0.25 MG PO (20:17)
[2025-06-02] MEDS: DESYREL 25 MG PO (20:19)
[2025-06-02] MEDS: FLOMAX 0.4 MG PO (23:01)
[2025-06-02] MEDS: LIPITOR 40 MG PO (23:01)
[2025-06-02] MEDS: MELATONIN 6 MG PO (23:03)
[2025-06-03] MEDS: ATIVAN 0.25 MG PO ×2 (02:17→19:48)
--- NOTE | 2025-06-03 04:34 | PTCARENOTE ---
Pt makes frequent attempts to escape room. He uses the bedside commode as a walker and rushes towards the door. Pt becomes increasingly agitated and aggressive when staff attempts to put him back to bed. GENERAL OFFICE ASSISTANT notified, bed alarm in place, plan of
care ongoing.
[2025-06-03 07:23] LABS: Glucose - Point of Care 130 mg/dl (70-99)
[2025-06-03 07:26] VITALS: BP 178/98
[2025-06-03] MEDS: NOVOLOG FLEXPEN-MODERATE RESISTANCE SC ×2 (07:38→17:01)
[2025-06-03] MEDS: FOLVITE 1 MG PO (07:39)
[2025-06-03] MEDS: PROTONIX 40 MG PO (07:39)
[2025-06-03] MEDS: ELIQUIS 2.5 MG PO ×2 (07:39→19:48)
[2025-06-03] MEDS: DESYREL 25 MG PO (07:39)
[2025-06-03] MEDS: ZENPEP DELAYED RELEASE CAPSULE 1 CAPSULE PO ×3 (07:39→16:33)
[2025-06-03] MEDS: BUSPAR 5 MG PO ×2 (07:39→19:49)
[2025-06-03] MEDS: APRESOLINE 25 MG PO (07:39)
[2025-06-03] MEDS: PLAVIX 75 MG PO (07:39)
[2025-06-03] MEDS: COREG 25 MG PO ×2 (07:40→19:49)
[2025-06-03] MEDS: COZAAR 50 MG PO (09:59)
[2025-06-03 10:29] LABS: Hematocrit 28.4 % (39.0-52.0); Hemoglobin 8.6 g/dL (13.0-18.0); Mean Corp Hgb Conc. 30.3 g/dL (33.0-37.0); Mean Corpuscular Volume 85.5 fL (80.0-94.0); Platelet Count 177 10^3/uL (130-400); Red Cell Dist. Width 17.9 % (11.5-14.5)
[2025-06-03 10:53] LABS: Blood Urea Nitrogen 40 mg/dl (9-20); Calcium 8.3 mg/dl (8.4-10.2); Carbon Dioxide 25 mmol/L (22-30); Chloride 107 mmol/L (98-107); Estimated Creatinine Clearance 21 ml/min; Glucose 116 mg/dl (70-99); Potassium 4.4 mmol/L (3.5-5.1); Sodium 137 mmol/L (135-145); eGFR 19.80
[2025-06-03 10:55] VITALS: BP 146/75
[2025-06-03 11:00] LABS: Vitamin D, 25-OH*** 23.2 ng/mL (30-80)
--- NOTE | 2025-06-03 11:48 | W.PN.HOSP.TC ---
Today's Communication/Plan
-
Better BP control
Will discuss with C ardiology, renal and Psychitry re discharge plans
Assessment / Plan
Assessment / Plan
70-year-old female presented from [facility] with weakness and worsening anemia with a hemoglobin of 6.4.
Confused
CVS: S1-S2 normal
Chest: CTA B/L
Abdomen: Soft, NT
Extremities: No edema
# Acute on chronic anemia
Received 2 units of PRBCs
Hemoglobin stable.
Rectal Heme neg in ER
Iron studies noted-adequate
Got DEBRA on 06/01
# Acute HFpEF-proBNP 13,900 - On Bumex 1 mg daily as outpatient
Cardiology consulted and following
IV Lasix placed on hold.
ECHO-EF 55 to 60% with a mildly dilated aortic root measuring 3.8 cm. Trileaflet thickened aortic valve with adequate leaflet excursion. Mild AI. Mild concentric LVH. Mildly dilated RA.
# NSVT-15 beats run on 06/01/2025 in the setting of electrolyte disturbance.Linq was placed in 2020 ( battery )
# Coronary disease with history of CABG in 2017 at [place]
# Paroxysmal atrial fibrillation-on Eliquis and carvedilol as outpatient-continue
# Hypomagnesemia-replaced.
# Hypertension-on Coreg 25 mg twice daily, amlodipine 10 mg daily, hydralazine 25 mg 3 times daily as OP. Norvasc stopped here due to edema. Needs better BP control.
# Hyperlipidemia/Atherosclerosis-continue statin
# Type 2 diabetes-hemoglobin A1c not reliable. Continue Accu-Cheks and sliding scale coverage.
# Stroke with residual left-sided weakness in 2022. Recurrent stroke in 2023 in the setting of carotid disease, status post carotid stent placement at [facility] 2023. Also on Plavix as outpatient
# CKD stage IV-nephrology following with diuresis. Watch creatinine. Patient takes sodium zirconium 10 mg daily as outpatient
# Schizophrenia-Was On buspirone, Depakote, Lexapro, trazodone 50 mg twice daily, trifluoperazine 4 mg p.o. twice daily, lorazepam 0.25 mg twice daily as needed for anxiety as outpatient.
Delirium/agitation with code purple called on 06/01/2025-patient placed on restraints. Has been off.
Depakote discontinued
Currently on BuSpar 5 mg p.o. twice daily, Ativan 0.25 mg p.o. every 6 hours as needed, Zyprexa 2.5 mg p.o. HS, trazodone 25 mg p.o. twice daily
Daughter wanted to talk to psyche about meds- Relayed.
# GERD-continue PPI
# Enlarged prostate-continue Flomax
# Diabetic retinopathy
# Dementia
# Ambulatory dysfunction with history of falls
# DVT prophylaxis-Eliquis
# Full code
Spoke to daughter and updated yesterday.
D/W RN
D/W Cards
D/W Renal
Part of this note was created using voice recognition system. Occasional wrong word or��sound alike� substitutions may have inadvertently occurred due to the inherent limitations of voice recognition software. If noted kindly bring it to my
attention for correction.
Anticipated Discharge: Within 24 hours
Subjective/Interval History
-
Date of Service: June 03, 2025
Objective Data
-
Labs:
Laboratory Results
06/03/25
09:23
WBC 5.7
Hgb 8.6 L
Hct 28.4 L
Plt Count 177
Sodium 137
Potassium 4.4
Chloride 107
Carbon Dioxide 25
BUN 40 H
Creatinine 3.2 H
Glucose 116 H
Calcium 8.3 L
Vital Signs:
Vital Signs
Temp Pulse Resp BP Pulse Ox
97.7 F 72 17 146/75 96
06/03/25 10:55 06/03/25 10:55 06/03/25 10:55 06/03/25 10:55 06/03/25 10:55
I&O
06/02/25 06/03/25 06/04/25
06:59 06:59 06:59
Intake Total 120 / 120 720 / 720
Balance 120 / 120 720 / 720
[2025-06-03 11:52] LABS: Glucose - Point of Care 251 mg/dl (70-99)
--- NOTE | 2025-06-03 12:25 | W.PN.UPDATE ---
Addendum entered and electronically signed by Holly Barron MD 06/03/25 15:16:
saw patient again this afternoon. he was somewhat awake. he looked at me when i talked to him and he answered four or five of my simple questions (how many children do your have...? how many grandkids....? do you have any pain...?) with one word
answers then closed his eyes and went back to sleep. will see if inc in hs trazodone and avoidance of sedating meds in the am helps with daytime alertness tomorrow.
Original Note:
Update Note
Progress Note Update
patient was sleeping and unable to be roused this am. d requested a phone call. addressed a number of medication issues. d feels lexapro was essential to her father's well being and favors it be restarted. i did fill her in on the qtc issue and
explained to her exactly what that means. since she is very adamant that it changed his life and said he had been on others without + effect restarting at 5 mg and recommend that ecg be followed closely. will do ecg in the am. she asked that
monitoring ecg be placed in his discharge recs. she also asks if he can remain for another day to ascertain how med changes have worked out. i told her i would let his hospitalist know. we also discussed trazodone and why i reduced the dose.
explained to her that it can cause orthostasis and that is one of his issues. she points out that he needs to sleep for his 'wellbeing'. we agreed to inc dose at hs to 50 and dc am dose. lastly explained why i stopped am zyprexa . she is okay
with this. will come back to check on patient later this am when he is awake.
[2025-06-03] MEDS: VITAMIN D3 (cholecalciferol) 25 MCG PO (13:35)
[2025-06-03] MEDS: NOVOLOG FLEXPEN-MODERATE RESISTANCE 5 UNITS SC (13:35)
[2025-06-03] MEDS: LEXAPRO 5 MG PO (13:49)
--- NOTE | 2025-06-03 15:00 | W.PN.NEPH.PH ---
Today's Communication / Plan
-
Escalate hydralazine to 50 mg 3 times daily
Assessment/Plan
-
IMP:
Acute on Chronic Anemia of CKD
LE Edema
CKD IV
Hypomagnesemia
ASCVD- Prior CABG / Prior CVA.
Paroxysmal Atrial Fibrillation
DM-II
Senile Dementia with Behavioral Disturbance
Schizophrenia
Plan:
A/w acute on chr anemia
with recent adjustment of psych meds
ckd-cr seem stable and not dialysis candidate : creatinine down at 3.2 (likely baseline)
anemia-adequate fe stores and check vit b12 and foalte
dosed DEBRA on 06/01 no apparent bleeding
since he is at [place] not sure availability of DEBRA -need heme out ot f/u for this if possible
Bp elevated off amlodipine which was held for edema, carvedilol 25 mg twice daily we will also escalate hydralazine to 50 mg 3 times daily
hold diuresis now that barely he has any edema and he is supine with out resp distress
-
-
Date of Service: June 03, 2025
CC / HPI / ROS
-
Chief Complaint:
CKD stage IV
History of Present Illness:
Creatinine stable at 3.2
Hemodynamically stable
Hemoglobin up to 8.6 following DEBRA administration on 06/01/2025
Review of Systems:
Urine output not recorded incontinent
No fever
Lethargic
Labs
-
Labs:
WBC 5.7 10^3/uL (4.8-10.8) 06/03/25 09:23
RBC 3.32 10^6/uL (4.70-6.10) L 06/03/25 09:23
Hgb 8.6 g/dL (13.0-18.0) L 06/03/25 09:23
Hct 28.4 % (39.0-52.0) L 06/03/25 09:23
Plt Count 177 10^3/uL (130-400) 06/03/25 09:23
Sodium 137 mmol/L (135-145) 06/03/25 09:23
Potassium 4.4 mmol/L (3.5-5.1) 06/03/25 09:23
Chloride 107 mmol/L (98-107) 06/03/25 09:23
Carbon Dioxide 25 mmol/L (22-30) 06/03/25 09:23
BUN 40 mg/dl (9-20) H 06/03/25 09:23
Creatinine 3.2 mg/dL (0.7-1.3) H 06/03/25 09:23
eGFR 19.80 06/03/25 09:23
Glucose 116 mg/dl (70-99) H 06/03/25 09:23
Calcium 8.3 mg/dl (8.4-10.2) L 06/03/25 09:23
Phosphorus 3.9 mg/dl (2.5-4.5) 06/01/25 06:01
Zft-B-Qvzvfwsbwvh Pept 36579 pg/ml 06/01/25 06:01
Albumin 3.7 g/dl (3.5-5.0) 05/31/25 21:18
Physical Exam
-
Vital Signs:
Vital Signs
Temp Pulse Resp BP Pulse Ox
97.7 F 72 17 146/75 96
06/03/25 10:55 06/03/25 10:55 06/03/25 10:55 06/03/25 10:55 06/03/25 10:55
Cardiovascular:: Regular rate and rhythm
Respiratory:: Bilateral: Coarse
Lung Excursion:: Normal
Abdomen:: Nontender and Soft
Bowel Sounds:: Normal
Extremity Edema:: None: Bilateral: (trace)
Escalera Catheter: No
[2025-06-03 15:20] VITALS: BP 161/62
[2025-06-03] MEDS: APRESOLINE 50 MG PO ×2 (16:32→21:34)
[2025-06-03 16:48] LABS: Glucose - Point of Care 103 mg/dl (70-99)
[2025-06-03 19:40] VITALS: BP 156/82
[2025-06-03] MEDS: DESYREL 50 MG PO (21:33)
[2025-06-03] MEDS: MELATONIN 6 MG PO (21:33)
[2025-06-03] MEDS: LIPITOR 40 MG PO (21:34)
[2025-06-03] MEDS: FLOMAX 0.4 MG PO (21:34)
[2025-06-03] MEDS: ZYPREXA 2.5 MG PO (21:35)
[2025-06-03 21:42] LABS: Glucose - Point of Care 252 mg/dl (70-99)
[2025-06-03 23:19] VITALS: BP 158/65
[2025-06-04] MEDS: ATIVAN 0.25 MG PO ×2 (01:47→08:38)
[2025-06-04 03:03] VITALS: BP 164/67; BMI 22.9
--- NOTE | 2025-06-04 04:16 | DOWNTIME ---
There was a [employer] Downtime on 06/04/2025 from 0100 to 06/04/2025 at 0255. Downtime documentation of patient's care, including medication administrations, has been reconciled in the electronic record per guidelines. Refer to the
patient's paper chart under the miscellaneous tab to see printed paper medication records and downtime forms.
--- NOTE | 2025-06-04 04:47 | PTCARENOTE ---
Pt's family at bedside at start of shift. Pt acting appropriately, in a good mood, and listening to direction from this RN. As soon as family left the Pt began making frequent attempts to get out of bed and run out of room. He is a high fall risk
and unsteady on his feet. When staff attempts to redirect him back in bed he became verbally aggressive and combative. Pt then started trying to punch and kick staff. Evening meds given at this time however Pt became increasingly hostile. ANGELI
notified, Soft point 4 limb 4 rail restraints ordered. While trying to place restraints on Pt he yelled at this RN 'you are going to hell', 'What are you trying to do, fuck me', 'your kids will be cursed' Pt then ripped out IV. At this time Pt
successfully place in 4 point restraints, plan of care ongoing.
[2025-06-04 07:30] VITALS: BP 123/87
[2025-06-04 08:31] LABS: Glucose - Point of Care 109 mg/dl (70-99)
[2025-06-04] MEDS: PROTONIX 40 MG PO (08:33)
[2025-06-04] MEDS: ELIQUIS 2.5 MG PO ×2 (08:33→22:38)
[2025-06-04] MEDS: FOLVITE 1 MG PO (08:33)
[2025-06-04] MEDS: BUSPAR 5 MG PO ×2 (08:33→22:37)
[2025-06-04] MEDS: ZENPEP DELAYED RELEASE CAPSULE 1 CAPSULE PO ×3 (08:33→17:42)
[2025-06-04] MEDS: LEXAPRO 5 MG PO (08:33)
[2025-06-04] MEDS: APRESOLINE 50 MG PO ×3 (08:33→22:38)
[2025-06-04] MEDS: COREG 25 MG PO ×2 (08:33→22:37)
[2025-06-04] MEDS: VITAMIN D3 (cholecalciferol) 25 MCG PO (08:34)
[2025-06-04] MEDS: PLAVIX 75 MG PO (08:34)
[2025-06-04] MEDS: NOVOLOG FLEXPEN-MODERATE RESISTANCE SC ×2 (08:39→17:09)
--- NOTE | 2025-06-04 11:01 | W.PN.NEPH.PH ---
Today's Communication / Plan
-
follow labs,
Assessment/Plan
-
IMP:
Acute on Chronic Anemia of CKD
LE Edema
CKD IV
Hypomagnesemia
ASCVD- Prior CABG / Prior CVA.
Paroxysmal Atrial Fibrillation
DM-II
Senile Dementia with Behavioral Disturbance
Schizophrenia
Plan:
A/w acute on chr anemia
with recent adjustment of psych meds
ckd-cr seem stable and not dialysis candidate : creatinine down at 3.2 (likely baseline)
anemia-adequate fe stores and normal vit b12 and foalte
dosed DEBRA on 06/01 no apparent bleeding, hb better at 9.1
since he is at [place] not sure availability of DEBAR -need heme out ot f/u for this if possible
Bp improving- off amlodipine which was held for edema, carvedilol 25 mg twice daily, increased dose of hydralazine to 50 mg 3 times daily
hold diuresis now that barely he has any edema and with out resp distress
follow pending labs
-
-
Date of Service: June 04, 2025
CC / HPI / ROS
-
Chief Complaint:
CKD stage IV
History of Present Illness:
Creatinine stable at 3.2, pending labs today
Hemodynamically stable
Hemoglobin up to 9.1 following DEBRA administration on 06/01/2025
Review of Systems:
Urine output not recorded incontinent
No fever
no cp or sob
Labs
-
Labs:
WBC Cancelled 06/04/25 06:00
RBC Cancelled 06/04/25 06:00
Hgb Cancelled 06/04/25 06:00
Hct Cancelled 06/04/25 06:00
Plt Count Cancelled 06/04/25 06:00
Sodium Cancelled 06/04/25 06:00
Potassium Cancelled 06/04/25 06:00
Chloride Cancelled 06/04/25 06:00
Carbon Dioxide Cancelled 06/04/25 06:00
BUN Cancelled 06/04/25 06:00
Creatinine Cancelled 06/04/25 06:00
eGFR Cancelled 06/04/25 06:00
Glucose Cancelled 06/04/25 06:00
Calcium Cancelled 06/04/25 06:00
Phosphorus 3.9 mg/dl (2.5-4.5) 06/01/25 06:01
Gzq-K-Sleteoajezp Pept 55112 pg/ml 06/01/25 06:01
Albumin 3.7 g/dl (3.5-5.0) 05/31/25 21:18
Physical Exam
-
Vital Signs:
Vital Signs
Temp Pulse Resp BP Pulse Ox
97.9 F 78 18 123/87 99
06/04/25 07:30 06/04/25 07:30 06/04/25 07:30 06/04/25 07:30 06/04/25 07:30
Cardiovascular:: Regular rate and rhythm
Respiratory:: Bilateral: CTA
Lung Excursion:: Normal
Abdomen:: Nontender and Soft
Bowel Sounds:: Normal
Extremity Edema:: None: Bilateral: (trace)
Escalera Catheter: No
--- NOTE | 2025-06-04 11:25 | W.PN.HOSP.TC ---
Today's Communication/Plan
-
Keep restraints off if we can
Psyche to adjust meds
Medically stable for discharge when He can be off restraints
Assessment / Plan
Assessment / Plan
70-year-old female presented from [facility] with weakness and worsening anemia with a hemoglobin of 6.4.
Confused
CVS: S1-S2 normal
Chest: CTA B/L
Abdomen: Soft, NT
Extremities: No edema
# Acute on chronic anemia
Received 2 units of PRBCs
Hemoglobin stable.
Rectal Heme neg in ER
Iron studies noted-adequate
Got DEBRA on 06/01
# Acute HFpEF-proBNP 13,900 - On Bumex 1 mg daily as outpatient
Cardiology consulted and following
IV Lasix placed on hold.
ECHO-EF 55 to 60% with a mildly dilated aortic root measuring 3.8 cm. Trileaflet thickened aortic valve with adequate leaflet excursion. Mild AI. Mild concentric LVH. Mildly dilated RA.
# NSVT-15 beats run on 06/01/2025 in the setting of electrolyte disturbance.Linq was placed in 2020 ( battery )
# Coronary disease with history of CABG in 2017 at [place]
# Paroxysmal atrial fibrillation-on Eliquis and carvedilol as outpatient-continue
# Hypomagnesemia-replaced.
# Hypertension-on Coreg 25 mg twice daily, amlodipine 10 mg daily, hydralazine 50 mg 3 times daily as OP. Norvasc stopped here due to edema. BP better with increased dose of Hydralazine.
# Hyperlipidemia/Atherosclerosis-continue statin
# Type 2 diabetes-hemoglobin A1c not reliable. Continue Accu-Cheks and sliding scale coverage.
# Stroke with residual left-sided weakness in 2022. Recurrent stroke in 2023 in the setting of carotid disease, status post carotid stent placement at [facility] 2023. Also on Plavix as outpatient
# CKD stage IV-nephrology following with diuresis. Watch creatinine. Patient takes sodium zirconium 10 mg daily as outpatient
# Schizophrenia-Was On buspirone, Depakote, Lexapro, trazodone 50 mg twice daily, trifluoperazine 4 mg p.o. twice daily, lorazepam 0.25 mg twice daily as needed for anxiety as outpatient.
Delirium/agitation with code brionna called on 06/01/2025-patient placed on restraints. Has been off.
Depakote discontinued
Currently on BuSpar 5 mg p.o. twice daily, Ativan 0.25 mg p.o. every 6 hours as needed, Zyprexa 2.5 mg p.o. HS, trazodone 25 mg p.o. twice daily
Daughter wanted to talk to psyche about meds- Relayed.
# GERD-continue PPI
# Enlarged prostate-continue Flomax
# Diabetic retinopathy
# Dementia
# Ambulatory dysfunction with history of falls
# DVT prophylaxis-Eliquis
# Full code
Spoke to daughter and updated
She requested a call from Psyche
D/W RN
Part of this note was created using voice recognition system. Occasional wrong word or��sound alike� substitutions may have inadvertently occurred due to the inherent limitations of voice recognition software. If noted kindly bring it to my
attention for correction.
Anticipated Discharge: Within 24 hours
Subjective/Interval History
-
Date of Service: June 04, 2025
Objective Data
-
Labs:
Laboratory Results
06/04/25
06:00
WBC Cancelled
Hgb Cancelled
Hct Cancelled
Plt Count Cancelled
Sodium Cancelled
Potassium Cancelled
Chloride Cancelled
Carbon Dioxide Cancelled
BUN Cancelled
Creatinine Cancelled
Glucose Cancelled
Calcium Cancelled
Vital Signs:
Vital Signs
Temp Pulse Resp BP Pulse Ox
97.9 F 78 18 123/87 99
06/04/25 07:30 06/04/25 07:30 06/04/25 07:30 06/04/25 07:30 06/04/25 07:30
I&O
06/03/25 06/04/25 06/05/25
06:59 06:59 06:59
Intake Total 720 / 720 1200 / 1200
Balance 720 / 720 1200 / 1200
[2025-06-04 11:45] VITALS: BP 153/66
[2025-06-04 12:23] LABS: Hematocrit 29.0 % (39.0-52.0); Hemoglobin 9.1 g/dL (13.0-18.0); Mean Corp Hgb Conc. 31.4 g/dL (33.0-37.0); Mean Corpuscular Volume 84.8 fL (80.0-94.0); Platelet Count 186 10^3/uL (130-400); Red Cell Dist. Width 17.8 % (11.5-14.5)
[2025-06-04 12:28] LABS: Glucose - Point of Care 172 mg/dl (70-99)
[2025-06-04] MEDS: NOVOLOG FLEXPEN-MODERATE RESISTANCE 1 UNITS SC (13:20)
[2025-06-04 15:20] VITALS: BP 126/77
--- NOTE | 2025-06-04 15:26 | W.PN.UPDATE ---
Update Note
Progress Note Update
pt seen this am for assessment, chart reviewed, spoke with daughter at length. 70 yo man with long history of schizophrenia (as well as bipolar 2, according to daughter) who had been fairly well maintained on fluphenazine injections at a [facility]
clinic in [facility] for many years. Following CVA x 2 over past 5 years pt has become harder to mange, with failure of control upon resumption of fluphenazine, and development of renal failure which daughter states she was told was due to his
antipsychotic medication.
Now resident of [facility], has recently had another episode of serious anemia. Daughter states that he had been getting weekly erythropoetin injections prior to placement in jail a month ago. Had been in-patient at [facility] geriatric psychiatric unit prior to that.
Events of last night noted; team had been planning discharge back to [facility] but had become agitated last night when staff attempted to get him to return to bed (is a falls risk due to some hemiparesis, weakness from not walking while on
depakote) Required 4 point restraints.
On exam today pt is pleasant, oriented to person and place. Is able to give me a history of in [employer], emigration to [place] and then [place]. Knows he is in hospital, that he had been in jail. [Daughter tells me he raved about how
good the jail was; pt told me he did not like it.]
Rec: Will try to use zyprexa for management of agitation; has clear psychotic illness which is likely in exacerbation and will need more antipsychotic. Has some dementia as well so will try to avoid benzos.
Daughter asks that if restraints are needed, to please pad them as much as possible due to the thinness of his skin and tearing.
--- NOTE | 2025-06-04 16:19 | VATNOTE ---
During routine rounds pt noted to not have IV access. Per PCN, pt removed and does not need it replaced. PCN will call VAT if pt requires new IV.
[2025-06-04 16:42] LABS: Blood Urea Nitrogen 39 mg/dl (9-20); Calcium 8.9 mg/dl (8.4-10.2); Carbon Dioxide 25 mmol/L (22-30); Chloride 105 mmol/L (98-107); Estimated Creatinine Clearance 21 ml/min; Glucose 110 mg/dl (70-99); Potassium 4.7 mmol/L (3.5-5.1); Sodium 134 mmol/L (135-145); eGFR 20.57
[2025-06-04 16:52] LABS: Glucose - Point of Care 119 mg/dl (70-99)
--- NOTE | 2025-06-04 16:54 | CM ---
Alert confused patient who is group home at [facility] Pt.
Referral placed in care port [place] can accepted after restraints remain off x 24 hours as per Thelma Ochoa.
Restraints off .
[facility]
report [phone]
fax [phone]
PLAN Return to [facility]
[2025-06-04 21:23] LABS: Glucose - Point of Care 275 mg/dl (70-99)
[2025-06-04] MEDS: DESYREL 50 MG PO (22:38)
[2025-06-04] MEDS: FLOMAX 0.4 MG PO (22:38)
[2025-06-04] MEDS: ZYPREXA 5 MG PO (22:39)
[2025-06-04] MEDS: MELATONIN 6 MG PO (22:39)
[2025-06-04] MEDS: LIPITOR 40 MG PO (22:39)
[2025-06-04 23:47] VITALS: BP 145/78
[2025-06-05 06:00] VITALS: BMI 22.3
[2025-06-05 07:32] VITALS: BP 138/88
[2025-06-05 07:38] LABS: Glucose - Point of Care 134 mg/dl (70-99)
[2025-06-05] MEDS: NOVOLOG FLEXPEN-MODERATE RESISTANCE SC (07:39)
[2025-06-05] MEDS: APRESOLINE 50 MG PO ×2 (08:45→16:28)
[2025-06-05] MEDS: PLAVIX 75 MG PO (08:45)
[2025-06-05] MEDS: FOLVITE 1 MG PO (08:45)
[2025-06-05] MEDS: LEXAPRO 5 MG PO (08:46)
[2025-06-05] MEDS: PROTONIX 40 MG PO (08:46)
[2025-06-05] MEDS: ELIQUIS 2.5 MG PO ×2 (08:46→19:49)
[2025-06-05] MEDS: BUSPAR 5 MG PO ×2 (08:46→19:49)
[2025-06-05] MEDS: VITAMIN D3 (cholecalciferol) 25 MCG PO (08:46)
[2025-06-05] MEDS: ZENPEP DELAYED RELEASE CAPSULE 1 CAPSULE PO ×3 (08:46→16:28)
[2025-06-05] MEDS: COREG 25 MG PO ×2 (08:46→19:49)
--- NOTE | 2025-06-05 10:19 | PTCARENOTE ---
Pt assessment complete. Pt was in 4 point soft restraints w/ 4 bed rails due to aggressive behavior in overnight hours. In my assessment I noted the pt to have skin tears to his bilateral forearms from the restraints. The skin tears were covered in
foam bandages. There was moderate drainage to the bandages. I also noted edema to the wrist bilaterally. MD made aware and the restraints were removed, pt was placed in leena chair per order from MD. Wound care on consult for the skin tears. Pt has
had breakfast, and additional sandwich. tolerated his meal appropriately. He is calm and resting comfortably in leena chair bedside. Pt did express need to toilet, in which he had a BM. Pt placed back in the chair bedside with myself and tech. Pt
resting and in no distress.
--- NOTE | 2025-06-05 11:05 | W.PN.UPDATE ---
Update Note
Progress Note Update
patient seen chart reviewed. discussed with nursing. the patient was very comfortable today. he was eating his breakfast and interacted appropriately with me. he does know he is in the hospital. he could not tell met he date or president. he did
know his name and told me where he is from [facility] he did have an episode of agitation yesterday and was in restraints. he seems to struggle more as the evening and night come on. have moved hs trazodone to six pm. zyprexa was just
increased yesterday to five mg. it will take some time to get into his system.
--- NOTE | 2025-06-05 11:30 | W.PN.HOSP.TC ---
Today's Communication/Plan
-
Keep off wrist restraints
Use Redirecting or Florina chair.
Psyche to adjust meds
Assessment / Plan
Assessment / Plan
70-year-old female presented from [facility] with weakness and worsening anemia with a hemoglobin of 6.4.
Confused
CVS: S1-S2 normal
Chest: CTA B/L
Abdomen: Soft, NT
Extremities: No edema
Both hands above wrists skin tear.
# Acute on chronic anemia
Received 2 units of PRBCs
Hemoglobin stable.
Rectal Heme neg in ER
Iron studies noted-adequate
Got DEBRA on 06/01
# Acute HFpEF-proBNP 13,900 - On Bumex 1 mg daily as outpatient
Cardiology consulted and following
IV Lasix placed on hold.
ECHO-EF 55 to 60% with a mildly dilated aortic root measuring 3.8 cm. Trileaflet thickened aortic valve with adequate leaflet excursion. Mild AI. Mild concentric LVH. Mildly dilated RA.
# NSVT-15 beats run on 06/01/2025 in the setting of electrolyte disturbance.Linq was placed in 2020 ( battery )
# Coronary disease with history of CABG in 2018 at [place]
# Paroxysmal atrial fibrillation-on Eliquis and carvedilol as outpatient-continue
# Hypomagnesemia-replaced.
# Hypertension-on Coreg 25 mg twice daily, amlodipine 10 mg daily, hydralazine 50 mg 3 times daily as OP. Norvasc stopped here due to edema. BP better with increased dose of Hydralazine.
# Hyperlipidemia/Atherosclerosis-continue statin
# Type 2 diabetes-hemoglobin A1c not reliable. Continue Accu-Cheks and sliding scale coverage.
# Stroke with residual left-sided weakness in 2022. Recurrent stroke in 2023 in the setting of carotid disease, status post carotid stent placement at [facility] 2023. Also on Plavix as outpatient
# CKD stage IV-nephrology following Patient takes sodium zirconium 10 mg daily as outpatient. Holding Diuretics. He looks euvolumic.
# Schizophrenia-Was On buspirone, Depakote, Lexapro, trazodone 50 mg twice daily, trifluoperazine 4 mg p.o. twice daily, lorazepam 0.25 mg twice daily as needed for anxiety as outpatient.
Delirium/agitation with code purple called on 06/01/2025-patient placed on restraints. Has been off.
Depakote discontinued
Currently on BuSpar 5 mg p.o. twice daily, Ativan 0.25 mg p.o. every 6 hours as needed, Zyprexa 5 mg p.o. HS, trazodone 50 mg p.o. at 6 pm
# GERD-continue PPI
# Enlarged prostate-continue Flomax
# Diabetic retinopathy
# Dementia
# Ambulatory dysfunction with history of falls
# DVT prophylaxis-Eliquis
# Full code
D/W Psyche
D/W RN
Part of this note was created using voice recognition system. Occasional wrong word or��sound alike� substitutions may have inadvertently occurred due to the inherent limitations of voice recognition software. If noted kindly bring it to my
attention for correction.
Anticipated Discharge: Within 24 hours
Subjective/Interval History
-
Date of Service: June 05, 2025
Objective Data
-
Vital Signs:
Vital Signs
Temp Pulse Resp BP Pulse Ox
97.4 F 80 18 138/88 100
06/05/25 07:32 06/05/25 08:45 06/05/25 07:32 06/05/25 08:45 06/05/25 09:05
I&O
06/04/25 06/05/25 06/06/25
06:59 06:59 06:59
Intake Total 1200 / 1200 240 / 240
Balance 1200 / 1200 240 / 240
[2025-06-05 11:49] LABS: Glucose - Point of Care 350 mg/dl (70-99)
--- NOTE | 2025-06-05 11:58 | WOUNDNOTE ---
LEFT ARM SKIN TEAR
--- NOTE | 2025-06-05 11:58 | WOUNDNOTE ---
RIGHT ARM SKIN TEAR
--- NOTE | 2025-06-05 11:59 | WOUNDNOTE ---
[facility] RN NOTE: Reviewed chart and met with patient. Patient visited for new skin tears to left and right forearms. Attempted to pull flap over open wound on right forearm, but flap too dry. Both wounds were cleaned with normal saline, covered with
adaptic, and silicone foam was applied. Sacrum and heels intact. Air cushion to chair. Patient is on a [employer] Accumax. Will sign off.
[2025-06-05 12:10] LABS: Hematocrit 28.4 % (39.0-52.0); Hemoglobin 9.2 g/dL (13.0-18.0)
[2025-06-05] MEDS: NOVOLOG FLEXPEN-MODERATE RESISTANCE 9 UNITS SC (12:14)
[2025-06-05 12:58] LABS: Blood Urea Nitrogen 42 mg/dl (9-20); Calcium 8.5 mg/dl (8.4-10.2); Carbon Dioxide 23 mmol/L (22-30); Chloride 106 mmol/L (98-107); Estimated Creatinine Clearance 22 ml/min; Glucose 283 mg/dl (70-99); Potassium 4.9 mmol/L (3.5-5.1); Sodium 134 mmol/L (135-145); eGFR 21.40
--- NOTE | 2025-06-05 13:03 | W.PN.NEPH.PH ---
Today's Communication / Plan
-
follow labs
d/c plan
Assessment/Plan
-
IMP:
Acute on Chronic Anemia of CKD
LE Edema
CKD IV
Hypomagnesemia
ASCVD- Prior CABG / Prior CVA.
Paroxysmal Atrial Fibrillation
DM-II
Senile Dementia with Behavioral Disturbance
Schizophrenia
Plan:
A/w acute on chr anemia
with recent adjustment of psych meds
ckd-cr seem stable and not dialysis candidate : creatinine down at 3 (likely baseline)
anemia-adequate fe stores and normal vit b12 and foalte
dosed DEBRA on 06/01 no apparent bleeding, hb better at 9.2
since he is at [place] not sure availability of DEBRA -need heme out ot f/u for this if possible
Bp stable- off amlodipine which was held for edema, carvedilol 25 mg twice daily, increased dose of hydralazine to 50 mg 3 times daily
hold diuresis now that barely he has any edema and with out resp distress
follow pending labs
-
-
Date of Service: June 05, 2025
CC / HPI / ROS
-
Chief Complaint:
CKD stage IV
History of Present Illness:
Creatinine stable at 3.,
Hemodynamically stable
Hemoglobin up to 9.2 following DEBRA administration on 06/01/2025
Review of Systems:
No fever
sleepy during visit , was agitated last night
Labs
-
Labs:
WBC 6.9 10^3/uL (4.8-10.8) 06/04/25 11:30
RBC 3.42 10^6/uL (4.70-6.10) L 06/04/25 11:30
Hgb 9.2 g/dL (13.0-18.0) L 06/05/25 11:52
Hct 28.4 % (39.0-52.0) L 06/05/25 11:52
Plt Count 186 10^3/uL (130-400) 06/04/25 11:30
Sodium 134 mmol/L (135-145) L 06/05/25 11:52
Potassium 4.9 mmol/L (3.5-5.1) 06/05/25 11:52
Chloride 106 mmol/L (98-107) 06/05/25 11:52
Carbon Dioxide 23 mmol/L (22-30) 06/05/25 11:52
BUN 42 mg/dl (9-20) H 06/05/25 11:52
Creatinine 3.0 mg/dL (0.7-1.3) H 06/05/25 11:52
eGFR 21.40 06/05/25 11:52
Glucose 283 mg/dl (70-99) H 06/05/25 11:52
Calcium 8.5 mg/dl (8.4-10.2) 06/05/25 11:52
Phosphorus 3.9 mg/dl (2.5-4.5) 06/01/25 06:01
Zlk-S-Oehhwralsmv Pept 89996 pg/ml 06/01/25 06:01
Albumin 3.7 g/dl (3.5-5.0) 05/31/25 21:18
Physical Exam
-
Vital Signs:
Vital Signs
Temp Pulse Resp BP Pulse Ox
97.4 F 80 18 138/88 100
06/05/25 07:32 06/05/25 08:45 06/05/25 07:32 06/05/25 08:45 06/05/25 09:05
Cardiovascular:: Regular rate and rhythm
Respiratory:: Bilateral: CTA
Lung Excursion:: Normal
Abdomen:: Nontender and Soft
Bowel Sounds:: Normal
Extremity Edema:: None: Bilateral: (trace)
Escalera Catheter: No
[2025-06-05] MEDS: NOVOLOG FLEXPEN 5 UNITS SC (15:12)
--- NOTE | 2025-06-05 15:42 | CM ---
Alert confused patient who is skilled nursing at [facility].
Referral placed in care port [facility] can accepted after restraints remain off x 24 hours as per [place] O[place].
Restraints off In Florina chair.
PT OT indicates return to [facility]
report [phone]
fax [phone]
PLAN Return to [facility]
[2025-06-05 15:46] VITALS: BP 156/71
[2025-06-05] MEDS: ATIVAN 0.25 MG PO (16:19)
[2025-06-05 16:21] LABS: Glucose - Point of Care 165 mg/dl (70-99)
[2025-06-05] MEDS: NOVOLOG FLEXPEN-MODERATE RESISTANCE 1 UNITS SC (16:28)
[2025-06-05] MEDS: NOVOLOG FLEXPEN 3 UNITS SC (16:29)
[2025-06-05 19:48] VITALS: BP 124/97
[2025-06-05] MEDS: APRESOLINE PO (21:25)
[2025-06-05] MEDS: FLOMAX PO (21:26)
[2025-06-05] MEDS: ZYPREXA PO (21:26)
[2025-06-05] MEDS: LIPITOR PO (21:26)
[2025-06-05] MEDS: MELATONIN PO (21:26)
[2025-06-05 21:45] LABS: Glucose - Point of Care 152 mg/dl (70-99)
--- NOTE | 2025-06-05 22:03 | W.PN.UPDATE ---
Update Note
Progress Note Update
Patient agitated, hitting staff, throwing walker around, refusing PO medications. Nurses placed him in bed and placed restraints.
patient seen, agitated, saying ' I will kill that haeys (RN) today'. denying any pain or discomfort.
Zyprexa IM given
Restraints in place.
advise RN to wean off Restraints during this shift if possible.
[2025-06-05] MEDS: ZYPREXA 5 MG IM (22:51)
[2025-06-05] MEDS: STERILE WATER FOR INJECTION 2.1 ML IM (22:52)
[2025-06-05 23:25] VITALS: BP 107/72
--- NOTE | 2025-06-06 01:28 | PTCARENOTE ---
Addendum entered by Fabien Fofana RN 06/09/25 04:36:
At start of shift Pt's family was present at the bedside. Pt acting appropriately and listening to direction from RN. Once Pt's family left, Pt started to make frequent attempts out of bed. RN and PCT attempted to redirect Pt. Pt became agitated and
combative. Pt picked up rolling walker and attempted to hit RN and PCT with rolling walker. Pt also attempted to punch and kick RN and PCT. Pt's scheduled 20:00 medications was given prior to this incident. RN contacted INSURANCE SALES REPRESENTATIVE on duty, Faye Gooden.
INSURANCE SALES REPRESENTATIVE placed restraint order. RNs and PCT applied restraints. While restraints were put in place, pt yelled 'I'm going to fucking kill you'. Pt refused scheduled 22:00 medication several times. Pt continued to verbally threaten staff. INSURANCE SALES REPRESENTATIVE ordered
PRN medication. RN administered PRN medication. At this time Pt placed in restraints, plan of care ongoing.
Original Note:
At start of shift Pt's family was present at the bedside. Pt acting appropriately and listening to direction from RN. Once Pt's family left, Pt started to make frequent attempts out of bed. RN and PCT attempted to redirect Pt. Pt became agitated and
combative. Pt picked up rolling walker and attempted to hit RN and PCT with rolling walker. Pt also attempted to punch and kick RN and PCT. Pt's scheduled 20:00 medications was given prior to this incident. RN contacted INSURANCE SALES REPRESENTATIVE on duty, Faye Gooden.
INSURANCE SALES REPRESENTATIVE ordered soft point 4 limb/4 rail restraints. RNs and PCT applied restraints. While restraints were put in place, pt yelled 'I'm going to fucking kill you'. Pt refused scheduled 22:00 medication several times. Pt continued to verbally threaten
staff. INSURANCE SALES REPRESENTATIVE ordered 5mg IM Zyprexa. RN administered 5mg IM Zyprexa. At this time Pt placed in soft point 4 limb/4 rail restraints, plan of care ongoing.
[2025-06-06] MEDS: ATIVAN 0.25 MG PO ×3 (03:04→19:58)
[2025-06-06 04:24] VITALS: BMI 23.4
[2025-06-06 06:45] LABS: Glucose - Point of Care 157 mg/dl (70-99)
[2025-06-06 07:38] VITALS: BP 139/65
[2025-06-06 08:11] LABS: Glucose - Point of Care 205 mg/dl (70-99)
[2025-06-06] MEDS: ZENPEP DELAYED RELEASE CAPSULE 1 CAPSULE PO ×3 (09:01→17:12)
[2025-06-06] MEDS: PROTONIX 40 MG PO (09:01)
[2025-06-06] MEDS: COREG 25 MG PO ×2 (09:02→21:08)
[2025-06-06] MEDS: VITAMIN D3 (cholecalciferol) 25 MCG PO (09:02)
[2025-06-06] MEDS: BUSPAR 5 MG PO ×2 (09:02→21:10)
[2025-06-06] MEDS: PLAVIX 75 MG PO (09:02)
[2025-06-06] MEDS: APRESOLINE 50 MG PO ×3 (09:02→22:24)
[2025-06-06] MEDS: ELIQUIS 2.5 MG PO ×2 (09:02→21:09)
[2025-06-06] MEDS: LEXAPRO 5 MG PO (09:02)
[2025-06-06] MEDS: FOLVITE 1 MG PO (09:02)
[2025-06-06] MEDS: NOVOLOG FLEXPEN-MODERATE RESISTANCE 3 UNITS SC (09:03)
[2025-06-06] MEDS: NOVOLOG FLEXPEN 3 UNITS SC ×3 (09:03→17:12)
[2025-06-06 10:18] LABS: Hematocrit 25.1 % (39.0-52.0); Hemoglobin 8.1 g/dL (13.0-18.0); Mean Corp Hgb Conc. 32.3 g/dL (33.0-37.0); Mean Corpuscular Volume 83.7 fL (80.0-94.0); Platelet Count 174 10^3/uL (130-400); Red Cell Dist. Width 18.5 % (11.5-14.5)
[2025-06-06 10:41] LABS: Blood Urea Nitrogen 51 mg/dl (9-20); Calcium 8.5 mg/dl (8.4-10.2); Carbon Dioxide 22 mmol/L (22-30); Chloride 107 mmol/L (98-107); Estimated Creatinine Clearance 19 ml/min; Glucose 163 mg/dl (70-99); Potassium 4.8 mmol/L (3.5-5.1); Sodium 134 mmol/L (135-145); eGFR 17.19
[2025-06-06 12:13] LABS: Glucose - Point of Care 84 mg/dl (70-99)
[2025-06-06] MEDS: NOVOLOG FLEXPEN-MODERATE RESISTANCE SC (12:47)
--- NOTE | 2025-06-06 14:19 | W.PN.NEPH.PH ---
Today's Communication / Plan
-
Follow BMP
Assessment/Plan
-
IMP:
Acute on Chronic Anemia of CKD
LE Edema
CKD IV
Hypomagnesemia
ASCVD- Prior CABG / Prior CVA.
Paroxysmal Atrial Fibrillation
DM-II
Senile Dementia with Behavioral Disturbance
Schizophrenia
Plan:
A/w acute on chr anemia
with recent adjustment of psych meds
ckd-cr up to 3.6 but not dialysis candidate : due to behavioral disorder
anemia-adequate fe stores and normal vit b12 and foalte
dosed DEBRA on 06/01 no apparent bleeding, hb better at 9.2
since he is at OR not sure availability of DEBRA -need heme out ot f/u for this if possible
Bp stable- off amlodipine which was held for edema, carvedilol 25 mg twice daily, maintain hydralazine to 50 mg 3 times daily
hold diuresis now that barely he has any edema and with out resp distress, if weights increase we may have to add back a small dose of Bumex
follow labs
-
-
Date of Service: June 06, 2025
CC / HPI / ROS
-
Chief Complaint:
CKD stage IV
History of Present Illness:
Creatinine up to 3.6
Hemodynamically stable
Hemoglobin up to 9.2 following DEBRA administration on 06/01/2025
Review of Systems:
No fever
Weights up
sleepy during visit , was agitated last night
Labs
-
Labs:
WBC 6.5 10^3/uL (4.8-10.8) 06/06/25 10:03
RBC 3.00 10^6/uL (4.70-6.10) L 06/06/25 10:03
Hgb 8.1 g/dL (13.0-18.0) L 06/06/25 10:03
Hct 25.1 % (39.0-52.0) L 06/06/25 10:03
Plt Count 174 10^3/uL (130-400) 06/06/25 10:03
Sodium 134 mmol/L (135-145) L 06/06/25 10:03
Potassium 4.8 mmol/L (3.5-5.1) 06/06/25 10:03
Chloride 107 mmol/L (98-107) 06/06/25 10:03
Carbon Dioxide 22 mmol/L (22-30) 06/06/25 10:03
BUN 51 mg/dl (9-20) H 06/06/25 10:03
Creatinine 3.6 mg/dL (0.7-1.3) H 06/06/25 10:03
eGFR 17.19 06/06/25 10:03
Glucose 163 mg/dl (70-99) H 06/06/25 10:03
Calcium 8.5 mg/dl (8.4-10.2) 06/06/25 10:03
Phosphorus 3.9 mg/dl (2.5-4.5) 06/01/25 06:01
Fzb-O-Ijcdislszzb Pept 22702 pg/ml 06/01/25 06:01
Albumin 3.7 g/dl (3.5-5.0) 05/31/25 21:18
Physical Exam
-
Vital Signs:
Vital Signs
Temp Pulse Resp BP Pulse Ox
97.8 F 76 19 139/65 96
06/06/25 07:38 06/06/25 07:38 06/06/25 07:38 06/06/25 07:38 06/06/25 07:38
Cardiovascular:: Regular rate and rhythm
Respiratory:: Bilateral: CTA
Lung Excursion:: Normal
Abdomen:: Nontender and Soft
Bowel Sounds:: Normal
Extremity Edema:: None: Bilateral: (trace)
Escalera Catheter: No
[2025-06-06 15:33] VITALS: BP 160/64
--- NOTE | 2025-06-06 16:50 | W.PN.HOSP.TC ---
Today's Communication/Plan
-
Keep patient off of restraints if we can. During daytime he is stable.
Change Melatonin to 2000
Make sure patient gets trazodone tonight
Assessment / Plan
Assessment / Plan
70-year-old female presented from [facility] with weakness and worsening anemia with a hemoglobin of 6.4.
Seen earlier. Late documentation.
Confused
CVS: S1-S2 normal
Chest: CTA B/L
Abdomen: Soft, NT
Extremities: No edema
Both hands above wrists skin tear.
# Schizophrenia-Was On buspirone, Depakote, Lexapro, trazodone 50 mg twice daily, trifluoperazine 4 mg p.o. twice daily, lorazepam 0.25 mg twice daily as needed for anxiety as outpatient.
Delirium/agitation with code purple called on 06/01/2025-
Depakote discontinued
Currently on BuSpar 5 mg p.o. twice daily, Ativan 0.25 mg p.o. every 6 hours as needed, Zyprexa 5 mg p.o. HS, trazodone 50 mg p.o. at 6 pm
Texted psychiatry to see who will be seeing the patient today. No follow-up note today.
Patient was calm and quiet in the morning when I saw him yet confused
# Skin tear on the hands-wound care daily
# Acute on chronic anemia
Received 2 units of PRBCs
Hemoglobin stable.
Rectal Heme neg in ER
Iron studies noted-adequate
Got DEBRA on 06/01
# Acute HFpEF-proBNP 13,900 - On Bumex 1 mg daily as outpatient
IV Lasix placed on hold.
ECHO-EF 55 to 60% with a mildly dilated aortic root measuring 3.8 cm. Trileaflet thickened aortic valve with adequate leaflet excursion. Mild AI. Mild concentric LVH. Mildly dilated RA.
# NSVT-15 beats run on 06/01/2025 in the setting of electrolyte disturbance.Linq was placed in 2020 ( battery )
# Coronary disease with history of CABG in 2018 at [facility]
# Paroxysmal atrial fibrillation-on Eliquis and carvedilol as outpatient-continue
# Hypomagnesemia-replaced.
# Hypertension-on Coreg 25 mg twice daily, amlodipine 10 mg daily, hydralazine 50 mg 3 times daily as OP. Norvasc stopped here due to edema. BP better with increased dose of Hydralazine.
# Hyperlipidemia/Atherosclerosis-continue statin
# Type 2 diabetes-hemoglobin A1c not reliable. Continue Accu-Cheks and sliding scale coverage.
# Stroke with residual left-sided weakness in 2022. Recurrent stroke in 2023 in the setting of carotid disease, status post carotid stent placement at [facility] 2023. Also on Plavix as outpatient
# BRIDGETTE on CKD stage IV-nephrology following Patient takes sodium zirconium 10 mg daily as outpatient. Holding Diuretics. He looks euvolumic. Follow creatinine
# GERD-continue PPI
# Enlarged prostate-continue Flomax
# Diabetic retinopathy
# Dementia
# Ambulatory dysfunction with history of falls
# DVT prophylaxis-Eliquis
# Full code
Reviewed with psychiatry. Dr. Vergara saw the patient today. Note pending
D/W Daughter
D/W RN
Part of this note was created using voice recognition system. Occasional wrong word or��sound alike� substitutions may have inadvertently occurred due to the inherent limitations of voice recognition software. If noted kindly bring it to my
attention for correction.
Anticipated Discharge: Within 24 hours
Subjective/Interval History
-
Date of Service: June 06, 2025
Objective Data
-
Labs:
Laboratory Results
06/06/25
10:03
WBC 6.5
Hgb 8.1 L
Hct 25.1 L
Plt Count 174
Sodium 134 L
Potassium 4.8
Chloride 107
Carbon Dioxide 22
BUN 51 H
Creatinine 3.6 H
Glucose 163 H
Calcium 8.5
Vital Signs:
Vital Signs
Temp Pulse Resp BP Pulse Ox
97.8 F 75 17 160/64 99
06/06/25 15:33 06/06/25 15:33 06/06/25 15:33 06/06/25 15:33 06/06/25 15:33
I&O
06/05/25 06/06/25 06/07/25
06:59 06:59 06:59
Intake Total 240 / 240
Output Total 300 / 300
Balance 240 / 240 -300 / -300
[2025-06-06 17:10] LABS: Glucose - Point of Care 175 mg/dl (70-99)
--- NOTE | 2025-06-06 17:11 | CM ---
Confused patient who is usp at [facility].
Referral placed in care port [facility] can accepted after restraints remain off x 24 hours as per [facility].
Restraints off In Florina chair.
PT OT indicates return to [facility]
report [phone]
fax [phone]
PLAN Return to [facility]
[2025-06-06] MEDS: NOVOLOG FLEXPEN-MODERATE RESISTANCE 1 UNITS SC (17:12)
[2025-06-06] MEDS: DESYREL 50 MG PO (17:16)
--- NOTE | 2025-06-06 19:56 | W.PN.UPDATE ---
Update Note
Progress Note Update
1954 code brionna called
[employer] at seen. [employer] at the bed side, placing 4 point restraints.
RN reports patient walking out of the room, unable to redirect, started swinging his Walker at the staff multiple times therefore code brionna was called.
patient continuos to be agitated, hitting staff
Advised RN to give PO Meds now.
patient took the PO medications without any problems at present.
Patient seen again, agitated, screaming out ' peace of hell'
Advised RN weaning restraints off if patient calms down.
[2025-06-06 20:34] LABS: Glucose - Point of Care 163 mg/dl (70-99)
[2025-06-06] MEDS: MELATONIN 6 MG PO (21:06)
[2025-06-06] MEDS: FLOMAX 0.4 MG PO (21:06)
[2025-06-06] MEDS: ZYPREXA 7.5 MG PO (21:07)
[2025-06-06] MEDS: LIPITOR 40 MG PO (21:09)
[2025-06-06 23:12] VITALS: BP 134/90
--- NOTE | 2025-06-07 00:50 | PTCARENOTE ---
patient bed alarm going off. this RN and pct went to room to assist patient. pt already in hallway with walker. this RN tried to redirect pt back to room and into bed. redirection unsuccessful. patient continued to walk in the hallway with walker.
this RN tried to continually redirect patient to get back to room and into bed. other staff came to assist in getting pt back to his room. pt became agitated and combative and began hitting staff with walker multiple times. code brionna called.
multiple staff members were able to get pt back to room and in bed. patient continued to be combative with staff. while getting patient into the bed, patient attempted to punch staff members. PRN Ativan given. See MAR for administration. restraints
applied. order for restraints obtained. patient continued to be uncooperative with staff. pt educated on why restraints were needed. patient continued to scream out after restraints applied. bed alarm in place. POC ongoing.
[2025-06-07 05:05] VITALS: BMI 22.7
[2025-06-07 07:14] LABS: Hematocrit 29.6 % (39.0-52.0); Hemoglobin 9.1 g/dL (13.0-18.0)
[2025-06-07 07:51] LABS: Blood Urea Nitrogen 54 mg/dl (9-20); Calcium 8.8 mg/dl (8.4-10.2); Carbon Dioxide 24 mmol/L (22-30); Chloride 106 mmol/L (98-107); Estimated Creatinine Clearance 19 ml/min; Glucose 138 mg/dl (70-99); Potassium 5.0 mmol/L (3.5-5.1); Sodium 137 mmol/L (135-145); eGFR 17.78
[2025-06-07 08:17] LABS: Glucose - Point of Care 150 mg/dl (70-99)
[2025-06-07 08:29] VITALS: BP 164/98
[2025-06-07] MEDS: BUSPAR 5 MG PO (08:36)
[2025-06-07] MEDS: LEXAPRO 5 MG PO (08:36)
[2025-06-07] MEDS: PLAVIX 75 MG PO (08:36)
[2025-06-07] MEDS: ZENPEP DELAYED RELEASE CAPSULE 1 CAPSULE PO ×2 (08:36→16:42)
[2025-06-07] MEDS: ELIQUIS 2.5 MG PO ×2 (08:37→19:35)
[2025-06-07] MEDS: COREG 25 MG PO ×2 (08:37→19:36)
[2025-06-07] MEDS: PROTONIX 40 MG PO (08:37)
[2025-06-07] MEDS: FOLVITE 1 MG PO (08:37)
[2025-06-07] MEDS: VITAMIN D3 (cholecalciferol) 25 MCG PO (08:37)
[2025-06-07] MEDS: NOVOLOG FLEXPEN-MODERATE RESISTANCE SC (08:37)
[2025-06-07] MEDS: APRESOLINE 50 MG PO ×2 (08:37→16:42)
[2025-06-07] MEDS: TYLENOL 650 MG PO (08:37)
[2025-06-07] MEDS: NOVOLOG FLEXPEN 3 UNITS SC ×3 (08:38→17:50)
--- NOTE | 2025-06-07 10:09 | W.PN.UPDATE ---
Update Note
Progress Note Update
Patient unfortunately has again been getting frequently agitated, today after midnight was walking out out his room and when staff tried to redirect him he was aggressive and combative and needed to be restrained due to being dangerous to others.
Presently he is calm and heartedly eating his breakfast but does not provide and meaningful information; either does not answer or will day yes or no without context.
Hb level is increasing, today is 9.1. I reviewed his medications, currently is on Zyprexa 7.5 hs which is a relativelly high dose but he has been on it only one week so it is difficult to assess if it would be effective. Certainly so far he is still
very symptomatic.
I will increase the Buspar to 10 mg bid
Will continue F/U
[2025-06-07 11:10] VITALS: BP 136/78
[2025-06-07 11:21] LABS: Glucose - Point of Care 274 mg/dl (70-99)
--- NOTE | 2025-06-07 13:21 | W.PN.NEPH.PH ---
Today's Communication / Plan
-
Follow an intermittently
No need for daily labwork
Assessment/Plan
-
IMP:
Acute on Chronic Anemia of CKD
LE Edema
CKD IV
Hypomagnesemia
ASCVD- Prior CABG / Prior CVA.
Paroxysmal Atrial Fibrillation
DM-II
Senile Dementia with Behavioral Disturbance
Schizophrenia
Plan:
A/w acute on chr anemia
with recent adjustment of psych meds
ckd-cr at 3. 5 stable, but not dialysis candidate : due to behavioral disorder
anemia-adequate fe stores and normal vit b12 and foalte
dosed DEBRA on 06/01 no apparent bleeding, hb better at 9.2
since he is at [place] not sure availability of DEBRA -need heme out ot f/u for this if possible
Bp more reasonable off amlodipine which was held for edema, carvedilol 25 mg twice daily, maintain hydralazine to 50 mg 3 times daily
hold diuresis now that barely he has any edema and with out resp distress, if weights increase we may have to add back a small dose of Bumex but weights currently stay
-
-
Date of Service: June 07, 2025
CC / HPI / ROS
-
Chief Complaint:
CKD stage IV
History of Present Illness:
Creatinine at 3.5
Hemodynamically stable
Hemoglobin up to 9.2 following DEBRA administration on 06/01/2025
Review of Systems:
No fever
Weights up
sleepy during visit , was agitated last night
Severe agitation intermittently
Labs
-
Labs:
WBC 6.5 10^3/uL (4.8-10.8) 06/06/25 10:03
RBC 3.00 10^6/uL (4.70-6.10) L 06/06/25 10:03
Hgb 9.1 g/dL (13.0-18.0) L 06/07/25 06:30
Hct 29.6 % (39.0-52.0) L 06/07/25 06:30
Plt Count 174 10^3/uL (130-400) 06/06/25 10:03
Sodium 137 mmol/L (135-145) 06/07/25 06:30
Potassium 5.0 mmol/L (3.5-5.1) 06/07/25 06:30
Chloride 106 mmol/L (98-107) 06/07/25 06:30
Carbon Dioxide 24 mmol/L (22-30) 06/07/25 06:30
BUN 54 mg/dl (9-20) H 06/07/25 06:30
Creatinine 3.5 mg/dL (0.7-1.3) H 06/07/25 06:30
eGFR 17.78 06/07/25 06:30
Glucose 138 mg/dl (70-99) H 06/07/25 06:30
Calcium 8.8 mg/dl (8.4-10.2) 06/07/25 06:30
Phosphorus 3.9 mg/dl (2.5-4.5) 06/01/25 06:01
Hsd-D-Jluqqpomvcy Pept 56172 pg/ml 06/01/25 06:01
Albumin 3.7 g/dl (3.5-5.0) 05/31/25 21:18
Physical Exam
-
Vital Signs:
Vital Signs
Temp Pulse Resp BP Pulse Ox
97.6 F 78 19 164/98 99
06/07/25 08:29 06/07/25 08:29 06/07/25 08:29 06/07/25 08:29 06/07/25 08:29
Cardiovascular:: Regular rate and rhythm
Respiratory:: Bilateral: CTA
Lung Excursion:: Normal
Abdomen:: Nontender and Soft
Bowel Sounds:: Normal
Extremity Edema:: None: Bilateral: (trace)
Escalera Catheter: No
--- NOTE | 2025-06-07 13:25 | W.PN.HOSP.TC ---
Today's Communication/Plan
-
Follow-up with increased dose of Zyprexa and BuSpar
Trial of Florina chair instead of restraints if patient is not a threat for nursing
Continue NovoLog 3 AC
Assessment / Plan
Assessment / Plan
70-year-old female presented from [facility] with weakness and worsening anemia with a hemoglobin of 6.4.
Confused
CVS: S1-S2 normal
Chest: CTA B/L
Abdomen: Soft, NT
Extremities: No edema
Currently on restraints as he tried to swing at the nurses. Reportedly tried to swing at the nurse last night with his walker
# Schizophrenia-Was On buspirone, Depakote, Lexapro, trazodone 50 mg twice daily, trifluoperazine 4 mg p.o. twice daily, lorazepam 0.25 mg twice daily as needed for anxiety as outpatient.
Delirium/agitation with code purple called on 06/01/2025-
Depakote discontinued
Currently on BuSpar 10 mg p.o. twice daily, Ativan 0.25 mg p.o. every 6 hours as needed, Zyprexa 7.5 mg p.o. HS, trazodone 50 mg p.o. at 6 pm
# Skin tear on the hands-wound care daily
# Acute on chronic anemia
Received 2 units of PRBCs
Hemoglobin stable.
Rectal Heme neg in ER
Iron studies noted-adequate
Got DEBRA on 06/01
# Acute HFpEF-proBNP 13,900 - On Bumex 1 mg daily as outpatient
IV Lasix placed on hold.
ECHO-EF 55 to 60% with a mildly dilated aortic root measuring 3.8 cm. Trileaflet thickened aortic valve with adequate leaflet excursion. Mild AI. Mild concentric LVH. Mildly dilated RA.
# NSVT-15 beats run on 06/01/2025 in the setting of electrolyte disturbance.Linq was placed in 2020 ( battery )
# Coronary disease with history of CABG in 2018 at [place]
# Paroxysmal atrial fibrillation-on Eliquis and carvedilol as outpatient-continue
# Hypomagnesemia-replaced.
# Hypertension-on Coreg 25 mg twice daily, amlodipine 10 mg daily, hydralazine 50 mg 3 times daily as OP. Norvasc stopped here due to edema. BP better with increased dose of Hydralazine.
# Hyperlipidemia/Atherosclerosis-continue statin
# Type 2 diabetes-hemoglobin A1c not reliable. Continue Accu-Cheks and sliding scale coverage. NovoLog 3 units AC added
# Stroke with residual left-sided weakness in 2022. Recurrent stroke in 2023 in the setting of carotid disease, status post carotid stent placement at [facility] 2023. Also on Plavix as outpatient
# BRIDGETTE on CKD stage IV-nephrology following Patient takes sodium zirconium 10 mg daily as outpatient. Holding Diuretics. He looks euvolumic. Follow creatinine
# GERD-continue PPI
# Enlarged prostate-continue Flomax
# Diabetic retinopathy
# Dementia
# Ambulatory dysfunction with history of falls
# DVT prophylaxis-Eliquis
# Full code
Reviewed with psychiatry Today
D/W RN
See if he can reduce the use of restraints and placed patient on Florina chair instead.
Part of this note was created using voice recognition system. Occasional wrong word or��sound alike� substitutions may have inadvertently occurred due to the inherent limitations of voice recognition software. If noted kindly bring it to my
attention for correction.
Anticipated Discharge: 24 - 48 hours
Subjective/Interval History
-
Date of Service: June 07, 2025
Objective Data
-
Labs:
Laboratory Results
06/07/25
06:30
Hgb 9.1 L
Hct 29.6 L
Sodium 137
Potassium 5.0
Chloride 106
Carbon Dioxide 24
BUN 54 H
Creatinine 3.5 H
Glucose 138 H
Calcium 8.8
Vital Signs:
Vital Signs
Temp Pulse Resp BP Pulse Ox
97.6 F 78 19 164/98 99
06/07/25 08:29 06/07/25 08:29 06/07/25 08:29 06/07/25 08:29 06/07/25 08:29
I&O
06/06/25 06/07/25 06/08/25
06:59 06:59 06:59
Output Total 300 / 300
Balance -300 / -300
[2025-06-07 13:57] LABS: Glucose - Point of Care 203 mg/dl (70-99)
[2025-06-07] MEDS: ZENPEP DELAYED RELEASE CAPSULE PO (13:57)
[2025-06-07] MEDS: NOVOLOG FLEXPEN-MODERATE RESISTANCE 3 UNITS SC ×2 (13:57→17:49)
[2025-06-07 15:26] VITALS: BP 136/78
[2025-06-07 16:02] VITALS: BP 137/93
[2025-06-07] MEDS: DESYREL 50 MG PO (16:43)
[2025-06-07 17:10] LABS: Glucose - Point of Care 247 mg/dl (70-99)
[2025-06-07] MEDS: BUSPAR 10 MG PO (19:35)
[2025-06-07] MEDS: MELATONIN 6 MG PO (19:35)
[2025-06-07] MEDS: ATIVAN 0.25 MG PO (19:52)
--- NOTE | 2025-06-07 23:06 | PTCARENOTE ---
Addendum entered by Brenda Smith RN 06/08/25 04:02:
new orders received for 1:1 observation. 1:[address] safe environment maintained. bed alarm in place. POC ongoing.
Original Note:
family at bedside. patient calm, cooperative and redirectable. restraints removed. pt ambulated to bedside commode with assistance from this RN. once patient was safely back in bed with bed alarm in place this RN went to go grab patients 1999
medications. upon return, daughter informed this RN that patient stated he 'wanted to and was just going to kill himself'. ANGELI Lira notified. 2000 meds given. See MAR for administration. FEATHER EDGER came to evaluate patient. patient was
visibly anxious at time of CRNPs evaluation. PRN Ativan given. See MAR for administration. no new orders received. restraints remain off. pt calm and cooperative. bed alarm in place. family no longer at bedside. POC ongoing.
[2025-06-07] MEDS: FLOMAX PO (23:59)
[2025-06-07] MEDS: LIPITOR PO (23:59)
[2025-06-08] MEDS: APRESOLINE PO (00:02)
--- NOTE | 2025-06-08 01:36 | W.PN.UPDATE ---
Update Note
Progress Note Update
Late entry:
~ 19:30 RN TT'd that patient stated he 'wanted to and was just going to kill himself'. Evaluated patient, he said he is tired and wants it to end. Talked with patient, he has no plan, states he is sad, patient oriented to self only, not oriented
to place or time. Utilizing the ESS-6 score, patient is mild risk with no current attempt and no plan or intent. Will continue to monitor overnight. Psychiatry currently following. Medications are being adjusted, recently taken off many psychiatric
medications and patient is now more aware of his situation per daughter.�Scheduled medications given, patient resting in bed. 1:1 ordered. Nursing filter press supervisor updated.
[2025-06-08] MEDS: ZYPREXA PO (02:50)
[2025-06-08 03:30] VITALS: BP 168/97
[2025-06-08 03:46] LABS: Glucose - Point of Care 124 mg/dl (70-99)
[2025-06-08 06:00] VITALS: BMI 22.5
[2025-06-08 07:11] VITALS: BP 171/95
[2025-06-08 07:53] LABS: Glucose - Point of Care 137 mg/dl (70-99)
[2025-06-08] MEDS: BUSPAR 10 MG PO ×2 (08:47→20:42)
[2025-06-08] MEDS: PROTONIX 40 MG PO (08:47)
[2025-06-08] MEDS: TYLENOL 650 MG PO (08:47)
[2025-06-08] MEDS: FOLVITE 1 MG PO (08:47)
[2025-06-08] MEDS: APRESOLINE 50 MG PO ×3 (08:47→21:16)
[2025-06-08] MEDS: COREG 25 MG PO ×2 (08:47→20:43)
[2025-06-08] MEDS: PLAVIX 75 MG PO (08:48)
[2025-06-08] MEDS: ELIQUIS 2.5 MG PO ×2 (08:48→20:45)
[2025-06-08] MEDS: ZENPEP DELAYED RELEASE CAPSULE 1 CAPSULE PO ×3 (08:48→17:04)
[2025-06-08] MEDS: NOVOLOG FLEXPEN 3 UNITS SC ×2 (08:48→13:08)
[2025-06-08] MEDS: VITAMIN D3 (cholecalciferol) 25 MCG PO (08:49)
[2025-06-08] MEDS: LEXAPRO 5 MG PO (08:49)
[2025-06-08] MEDS: NOVOLOG FLEXPEN-MODERATE RESISTANCE SC (09:00)
[2025-06-08] MEDS: ATIVAN 0.25 MG PO ×2 (10:22→17:14)
--- NOTE | 2025-06-08 10:43 | W.PN.NEPH.PH ---
Today's Communication / Plan
-
folow bmp
Assessment/Plan
-
IMP:
Acute on Chronic Anemia of CKD
LE Edema
CKD IV
Hypomagnesemia
ASCVD- Prior CABG / Prior CVA.
Paroxysmal Atrial Fibrillation
DM-II
Senile Dementia with Behavioral Disturbance
Schizophrenia
Plan:
A/w acute on chr anemia
with recent adjustment of psych meds
ckd-cr at 3. 5 stable, but not dialysis candidate : due to behavioral disorder
anemia-adequate fe stores and normal vit b12 and foalte
dosed DEBRA on 06/01 no apparent bleeding, hb better at 9.2
since he is at [place] not sure availability of DEBRA -need heme out ot f/u for this if possible
Bp more reasonable off amlodipine which was held for edema, carvedilol 25 mg twice daily, maintain hydralazine to 50 mg 3 times daily
hold diuresis now that barely he has any edema and with out resp distress, if weights increase we may have to add back a small dose of Bumex but weights currently stay
-
-
Date of Service: June 08, 2025
CC / HPI / ROS
-
Chief Complaint:
CKD stage IV
History of Present Illness:
Creatinine at 3.5
Hemodynamically stable
Hemoglobin up to 9.2 following DEBRA administration on 06/01/2025
Review of Systems:
No fever
Weights up
sleepy during visit , was agitated last night
Severe agitation intermittently
Labs
-
Labs:
WBC 6.5 10^3/uL (4.8-10.8) 06/06/25 10:03
RBC 3.00 10^6/uL (4.70-6.10) L 06/06/25 10:03
Hgb 9.1 g/dL (13.0-18.0) L 06/07/25 06:30
Hct 29.6 % (39.0-52.0) L 06/07/25 06:30
Plt Count 174 10^3/uL (130-400) 06/06/25 10:03
Sodium 137 mmol/L (135-145) 06/07/25 06:30
Potassium 5.0 mmol/L (3.5-5.1) 06/07/25 06:30
Chloride 106 mmol/L (98-107) 06/07/25 06:30
Carbon Dioxide 24 mmol/L (22-30) 06/07/25 06:30
BUN 54 mg/dl (9-20) H 06/07/25 06:30
Creatinine 3.5 mg/dL (0.7-1.3) H 06/07/25 06:30
eGFR 17.78 06/07/25 06:30
Glucose 138 mg/dl (70-99) H 06/07/25 06:30
Calcium 8.8 mg/dl (8.4-10.2) 06/07/25 06:30
Phosphorus 3.9 mg/dl (2.5-4.5) 06/01/25 06:01
Say-L-Ngzxpjwjsvt Pept 78807 pg/ml 06/01/25 06:01
Albumin 3.7 g/dl (3.5-5.0) 05/31/25 21:18
Physical Exam
-
Vital Signs:
Vital Signs
Temp Pulse Resp BP Pulse Ox
97.6 F 81 20 171/95 99
06/08/25 07:11 06/08/25 07:11 06/08/25 07:11 06/08/25 07:11 06/08/25 07:11
Cardiovascular:: Regular rate and rhythm
Respiratory:: Bilateral: CTA
Lung Excursion:: Normal
Abdomen:: Nontender and Soft
Bowel Sounds:: Normal
Extremity Edema:: None: Bilateral: (trace)
Escalera Catheter: No
--- NOTE | 2025-06-08 11:24 | W.PN.UPDATE ---
Update Note
Progress Note Update
Patient is presently drowsy and not communicative. He was able to be taken out of restraints yesterday and so far has not been combative but did need prn of Ativan 0.25 mg the am.
Hopefully he will remain calm. I do not want to increse the Zyprexa further if it can be avoided as he is on a significant dose for his age.
Will continue F/U.
[2025-06-08 12:58] LABS: Glucose - Point of Care 201 mg/dl (70-99)
[2025-06-08] MEDS: NOVOLOG FLEXPEN-MODERATE RESISTANCE 3 UNITS SC (13:08)
--- NOTE | 2025-06-08 13:46 | W.PN.HOSP.TC ---
Today's Communication/Plan
-
I will defer one-to-one to psychiatry
Retacrit 10,000 units today
Chest x-ray
Avoid restraints as much as possible
Assessment / Plan
Assessment / Plan
70-year-old female presented from [facility] with weakness and worsening anemia with a hemoglobin of 6.4.
Confused
CVS: S1-S2 normal
Chest: CTA B/L
Abdomen: Soft, NT
Extremities: No edema, Skin tear on both wrists with dressings
Off restraints and calm after he received Ativan this morning. Reportedly patient stated that he wanted to and was placed on one-to-one overnight.
# Schizophrenia-Was On buspirone, Depakote, Lexapro, trazodone 50 mg twice daily, trifluoperazine 4 mg p.o. twice daily, lorazepam 0.25 mg twice daily as needed for anxiety as outpatient.
Delirium/agitation with code purple called on 06/01/2025-
Depakote discontinued
Currently on BuSpar 10 mg p.o. twice daily, Ativan 0.25 mg p.o. every 6 hours as needed, Zyprexa 7.5 mg p.o. HS, trazodone 50 mg p.o. at 6 pm
# Skin tear on the hands-wound care daily
# Acute on chronic anemia
Received 2 units of PRBCs
Hemoglobin stable.
Rectal Heme neg
Iron studies noted-adequate
Got DEBRA on 06/01 again 06/08/25
# Cough- Check CXR
# Acute HFpEF-proBNP 13,900 - On Bumex 1 mg daily as outpatient
IV Lasix placed on hold.
ECHO-EF 55 to 60% with a mildly dilated aortic root measuring 3.8 cm. Trileaflet thickened aortic valve with adequate leaflet excursion. Mild AI. Mild concentric LVH. Mildly dilated RA.
# NSVT-15 beats run on 06/01/2025 in the setting of electrolyte disturbance.Linq was placed in 2020 ( battery )
# Coronary disease with history of CABG in 2018 at [place]
# Paroxysmal atrial fibrillation-on Eliquis and carvedilol as outpatient-continue
# Hypomagnesemia-replaced.
# Hypertension-on Coreg 25 mg twice daily, amlodipine 10 mg daily, hydralazine 50 mg 3 times daily as OP. Norvasc stopped here due to edema. BP better with increased dose of Hydralazine.
# Hyperlipidemia/Atherosclerosis-continue statin
# Type 2 diabetes-hemoglobin A1c not reliable. Continue Accu-Cheks and sliding scale coverage. NovoLog 4 units AC added
# Stroke with residual left-sided weakness in 2022. Recurrent stroke in 2023 in the setting of carotid disease, status post carotid stent placement at [facility] 2023. Also on Plavix as outpatient
# BRIDGETTE on CKD stage IV-nephrology following Patient takes sodium zirconium 10 mg daily as outpatient. Holding Diuretics. He looks euvolemic. Follow creatinine
# GERD-continue PPI
# Enlarged prostate-continue Flomax
# Diabetic retinopathy
# Dementia
# Ambulatory dysfunction with history of falls
# DVT prophylaxis-Eliquis
# Full code
Reviewed with Nephrology
D/W RN
D/W Daughter and updated.
Part of this note was created using voice recognition system. Occasional wrong word or��sound alike� substitutions may have inadvertently occurred due to the inherent limitations of voice recognition software. If noted kindly bring it to my
attention for correction.
Anticipated Discharge: 24 - 48 hours
Subjective/Interval History
-
Date of Service: June 08, 2025
Objective Data
-
Vital Signs:
Vital Signs
Temp Pulse Resp BP Pulse Ox
97.6 F 81 20 171/95 99
06/08/25 07:11 06/08/25 07:11 06/08/25 07:11 06/08/25 07:11 06/08/25 07:11
I&O
06/07/25 06/08/25 06/09/25
06:59 06:59 06:59
Intake Total 1320 / 1320
Output Total 300 / 300
Balance -300 / -300 1320 / 1320
[2025-06-08] MEDS: DESYREL 50 MG PO (17:10)
[2025-06-08 17:15] LABS: Glucose - Point of Care 170 mg/dl (70-99)
[2025-06-08] MEDS: NOVOLOG FLEXPEN-MODERATE RESISTANCE 1 UNITS SC (17:17)
[2025-06-08 17:18] VITALS: BP 181/80
[2025-06-08] MEDS: NOVOLOG FLEXPEN 4 UNITS SC (17:18)
[2025-06-08] MEDS: RETACRIT 10000 UNITS SC (18:36)
[2025-06-08] MEDS: MELATONIN 6 MG PO (20:45)
[2025-06-08 21:15] VITALS: BP 133/76
[2025-06-08] MEDS: LIPITOR 40 MG PO (21:17)
[2025-06-08] MEDS: FLOMAX 0.4 MG PO (21:17)
[2025-06-08] MEDS: ZYPREXA 7.5 MG PO (21:18)
[2025-06-08 21:20] LABS: Glucose - Point of Care 193 mg/dl (70-99)
[2025-06-09] VITALS: BP 145/96
[2025-06-09] MEDS: ATIVAN 0.25 MG PO ×3 (01:00→20:27)
--- NOTE | 2025-06-09 01:57 | W.PN.UPDATE ---
Update Note
Progress Note Update
Code Purple called due to patient being aggressive, kicking, punching and saying he was going to 'kill me' per patient's nurse. 4 point soft restraints added with assist of security personnel and Valium 2 mg IV ordered.
[2025-06-09] MEDS: VALIUM INJECTION 2 MG IV (02:33)
--- NOTE | 2025-06-09 04:21 | PTCARENOTE ---
Pt ordered 1:1 observation. Initially, Pt acting appropriately and listening to direction from RN and PCT. All scheduled medication was administered to Pt. Pt then started to make frequent attempts out of bed. RN and PCT attempted to redirect Pt. Pt
became agitated and combative. Pt began punching and kicking RN and PCT. RN called Telma Long. RN contacted ALLERGY NURSE on duty, ANGELI Khalil. ALLERGY NURSE placed restraint order. Security arrived to Pt's room. RNs and PCT applied restraints. While
restraints were put in place, pt yelled 'I am going to stab you in the neck and kill you'. Pt continued to verbally threaten staff. ALLERGY NURSE ordered PRN medication. RN contacted VAT nurse to place IV. RN administered PRN medication. During
administration, Pt spat on RN. At this time Pt placed in restraints, plan of care ongoing.
[2025-06-09 06:00] VITALS: BMI 22.6
[2025-06-09 06:51] LABS: Glucose - Point of Care 166 mg/dl (70-99)
[2025-06-09 06:58] VITALS: BP 142/75
[2025-06-09 07:54] LABS: Hematocrit 26.1 % (39.0-52.0); Hemoglobin 8.2 g/dL (13.0-18.0); Mean Corp Hgb Conc. 31.4 g/dL (33.0-37.0); Mean Corpuscular Volume 83.4 fL (80.0-94.0); Platelet Count 180 10^3/uL (130-400); Red Cell Dist. Width 18.6 % (11.5-14.5)
[2025-06-09 08:11] LABS: Blood Urea Nitrogen 65 mg/dl (9-20); Calcium 8.6 mg/dl (8.4-10.2); Carbon Dioxide 20 mmol/L (22-30); Chloride 108 mmol/L (98-107); Estimated Creatinine Clearance 18 ml/min; Glucose 147 mg/dl (70-99); Potassium 5.3 mmol/L (3.5-5.1); Sodium 136 mmol/L (135-145); eGFR 16.64
[2025-06-09] MEDS: NOVOLOG FLEXPEN-MODERATE RESISTANCE 1 UNITS SC ×3 (08:43→16:50)
[2025-06-09] MEDS: COREG 25 MG PO ×2 (08:44→20:27)
[2025-06-09] MEDS: LEXAPRO 5 MG PO (08:44)
[2025-06-09] MEDS: BUSPAR 10 MG PO ×2 (08:44→20:26)
[2025-06-09] MEDS: NOVOLOG FLEXPEN 4 UNITS SC ×3 (08:44→16:51)
[2025-06-09] MEDS: FOLVITE 1 MG PO (08:44)
[2025-06-09] MEDS: PROTONIX 40 MG PO (08:44)
[2025-06-09] MEDS: PLAVIX 75 MG PO (08:44)
[2025-06-09] MEDS: VITAMIN D3 (cholecalciferol) 25 MCG PO (08:44)
[2025-06-09] MEDS: APRESOLINE 50 MG PO ×3 (08:44→22:21)
[2025-06-09] MEDS: ELIQUIS 2.5 MG PO ×2 (08:45→20:27)
[2025-06-09] MEDS: ZENPEP DELAYED RELEASE CAPSULE 1 CAPSULE PO ×3 (08:47→16:50)
[2025-06-09 11:26] LABS: Glucose - Point of Care 175 mg/dl (70-99)
--- NOTE | 2025-06-09 12:36 | W.PN.NEPH.PH ---
Today's Communication / Plan
-
bumex
Assessment/Plan
-
IMP:
Acute on Chronic Anemia of CKD
LE Edema
CKD IV
Hypomagnesemia
ASCVD- Prior CABG / Prior CVA.
Paroxysmal Atrial Fibrillation
DM-II
Senile Dementia with Behavioral Disturbance
Schizophrenia
Plan:
follow BMP
restart po bumex
ckd-cr at 3. 5 stable, but not dialysis candidate : due to behavioral disorder
-
-
Date of Service: June 09, 2025
CC / HPI / ROS
-
Chief Complaint:
CKD stage IV
History of Present Illness:
Creatinine at 3.7 stable
Hemodynamically stable
DEBRA administration on 06/01/2025
K 5.3
Review of Systems:
No fever
Severe agitation intermittently
Labs
-
Labs:
WBC 6.7 10^3/uL (4.8-10.8) 06/09/25 07:27
RBC 3.13 10^6/uL (4.70-6.10) L 06/09/25 07:27
Hgb 8.2 g/dL (13.0-18.0) L 06/09/25 07:27
Hct 26.1 % (39.0-52.0) L 06/09/25 07:27
Plt Count 180 10^3/uL (130-400) 06/09/25 07:27
Sodium 136 mmol/L (135-145) 06/09/25 07:27
Potassium 5.3 mmol/L (3.5-5.1) H 06/09/25 07:27
Chloride 108 mmol/L (98-107) H 06/09/25 07:27
Carbon Dioxide 20 mmol/L (22-30) L 06/09/25 07:27
BUN 65 mg/dl (9-20) H 06/09/25 07:27
Creatinine 3.7 mg/dL (0.7-1.3) H 06/09/25 07:27
eGFR 16.64 06/09/25 07:27
Glucose 147 mg/dl (70-99) H 06/09/25 07:27
Calcium 8.6 mg/dl (8.4-10.2) 06/09/25 07:27
Phosphorus 3.9 mg/dl (2.5-4.5) 06/01/25 06:01
Xqj-R-Vdjvmlnferw Pept 03056 pg/ml 06/01/25 06:01
Albumin 3.7 g/dl (3.5-5.0) 05/31/25 21:18
Physical Exam
-
Vital Signs:
Vital Signs
Temp Pulse Resp BP Pulse Ox
97.5 F 67 17 142/75 98
06/09/25 06:58 06/09/25 06:58 06/09/25 06:58 06/09/25 06:58 06/09/25 06:58
Cardiovascular:: Regular rate and rhythm
Respiratory:: Bilateral: Coarse
Lung Excursion:: Normal
Abdomen:: Nontender and Soft
Bowel Sounds:: Normal
Extremity Edema:: +1: Bilateral:
[2025-06-09] MEDS: BUMEX 1 MG PO (13:08)
[2025-06-09 14:48] VITALS: BP 159/69
[2025-06-09 15:03] VITALS: BP 135/99
--- NOTE | 2025-06-09 15:32 | W.PN.HOSP.TC ---
Today's Communication/Plan
-
keep off restraints
recheck potassium
Assessment / Plan
Assessment / Plan
70yo M with advanced dementia, afib on ELiquis, HTN, CKD, schizophrenia, DM, CAD s/p CABG admitted with anemia, most likely 2/2 CKD stage 4. Also noticed LE swelling. As per family- previousy patient on Epo weekly with chronic anemia and as per
nephrology - not dialysis candidate 2/2 advanced dementia. Discharge delayed due to need in restraints
A/P:
#Anemia 2/2 CKD stage 4
Epo
s/p 1 unit PRBC in ED
NEphro follows
FOBT neg
#Acute on chronic HFpEF
#NSVT
#CAD s/p CABG
#Paroxysmal Afib
Echo: EF 55-60% with mild aortic root dilation, no clinical significant valvular disease
Cardio followed - diuresis as tolerated
Telemetry
cont rate cntrol
follow electrolytes
#hypomagnesemia
repleted
#Hyperkalemia
mild
unclear reason, maybe high potassium diet, start renal diet
follow
#DM type 2 with nephropathy
AccuCheck, Insulin SS, DM diet
#Essential HTN
#HLD
#Hx of CVA with residual L sided weakness
#BPH
#Advanced dementia with behavioral disturbances
#Schizophrenia
psych consult
cont home meds
DVT ppx Eliquis
Full code
I have spent at least 55min reviewing chart, test results and providing direct patient care
Anticipated Discharge: Within 24 hours
Subjective/Interval History
-
Date of Service: June 09, 2025
Objective Data
-
Labs:
Laboratory Results
06/09/25 06/09/25
07:27 15:24
WBC 6.7
Hgb 8.2 L
Hct 26.1 L
Plt Count 180
Sodium 136
Potassium 5.3 H Pending
Chloride 108 H
Carbon Dioxide 20 L
BUN 65 H
Creatinine 3.7 H
Glucose 147 H
Calcium 8.6
Vital Signs:
Vital Signs
Temp Pulse Resp BP Pulse Ox
98.4 F 62 18 135/99 98
06/09/25 15:03 06/09/25 15:03 06/09/25 15:03 06/09/25 15:03 06/09/25 15:03
I&O
06/08/25 06/09/25 06/10/25
06:59 06:59 06:59
Intake Total 1320 / 1320 920 / 920 720 / 720
Output Total 340 / 340 200 / 200
Balance 1320 / 1320 580 / 580 520 / 520
Review of Systems
-
Unable to obtain full review of systems at this time due to: Dementia
History Source: Patient
Physical Exam
-
General: No Apparent Distress
HEENT: Normocephalic
Respiratory: Clear to Auscultation
GI: Soft, Nontender and Nondistended
Musculoskeletal: No Clubbing, No Cyanosis and No Edema
Neuro: Awake, Alert, Oriented and AO x 3
Psych: Calm
[2025-06-09 16:02] LABS: Potassium 5.3 mmol/L (3.5-5.1)
[2025-06-09 16:47] LABS: Glucose - Point of Care 174 mg/dl (70-99)
[2025-06-09] MEDS: DESYREL 50 MG PO (18:11)
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
[2025-06-09] MEDS: MELATONIN 6 MG PO (20:23)
[2025-06-09 20:43] LABS: Glucose - Point of Care 184 mg/dl (70-99)
--- NOTE | 2025-06-09 22:08 | PTCARENOTE ---
Pt. was combative when asked.
[2025-06-09] MEDS: LIPITOR 40 MG PO (22:20)
[2025-06-09] MEDS: ZYPREXA 7.5 MG PO (22:21)
[2025-06-09] MEDS: FLOMAX 0.4 MG PO (22:21)
[2025-06-09 23:00] VITALS: BP 156/78
[2025-06-10] MEDS: ATIVAN 0.25 MG PO (03:18)
--- NOTE | 2025-06-10 03:30 | PTCARENOTE ---
Patient found to have worsening skin tears underneath where wrist restraints are, worse on R wrist. Had silicone border foams in place on both wrists before restraints were applied. Pt pulled on restraints so hard, reopening the skin tear causing
bleeding and hematoma present underneath. This RN cleansed with saline, put 3 large foams on both the right and the left wrist. Cap refill less than 2 seconds, positive pulses. Edema noted. Attempted taking restraints off, pt is not redirectable. Pt
is aggressive and restless, PRN Ativan given. See MAR. Wound care consult ordered. Pt continuing to pull at restraints. CLINICAL ALLERGIST Faye Gooden notified. No new orders at this time. Plan of care ongoing.
[2025-06-10 06:00] VITALS: BMI 22.2
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
[2025-06-10 07:10] VITALS: BP 120/87
[2025-06-10 07:16] LABS: Glucose - Point of Care 174 mg/dl (70-99)
[2025-06-10 08:02] LABS: Hematocrit 28.3 % (39.0-52.0); Hemoglobin 8.8 g/dL (13.0-18.0); Mean Corp Hgb Conc. 31.1 g/dL (33.0-37.0); Mean Corpuscular Volume 85.8 fL (80.0-94.0); Platelet Count 174 10^3/uL (130-400); Red Cell Dist. Width 18.5 % (11.5-14.5)
[2025-06-10 08:48] LABS: Blood Urea Nitrogen 61 mg/dl (9-20); Calcium 9.1 mg/dl (8.4-10.2); Carbon Dioxide 22 mmol/L (22-30); Chloride 107 mmol/L (98-107); Estimated Creatinine Clearance 17 ml/min; Glucose 156 mg/dl (70-99); Potassium 5.3 mmol/L (3.5-5.1); Sodium 137 mmol/L (135-145); eGFR 16.11
[2025-06-10] MEDS: ELIQUIS 2.5 MG PO ×2 (09:05→19:55)
[2025-06-10] MEDS: BUMEX 1 MG PO (09:05)
[2025-06-10] MEDS: PROTONIX 40 MG PO (09:05)
[2025-06-10] MEDS: ZENPEP DELAYED RELEASE CAPSULE 1 CAPSULE PO ×3 (09:05→18:41)
[2025-06-10] MEDS: APRESOLINE 50 MG PO ×3 (09:06→21:00)
[2025-06-10] MEDS: LEXAPRO 5 MG PO (09:06)
[2025-06-10] MEDS: FOLVITE 1 MG PO (09:06)
[2025-06-10] MEDS: BUSPAR 10 MG PO ×2 (09:06→19:56)
[2025-06-10] MEDS: COREG 25 MG PO ×2 (09:06→19:55)
[2025-06-10] MEDS: PLAVIX 75 MG PO (09:06)
[2025-06-10] MEDS: NOVOLOG FLEXPEN 4 UNITS SC ×3 (09:07→18:40)
[2025-06-10] MEDS: VITAMIN D3 (cholecalciferol) 25 MCG PO (09:07)
[2025-06-10] MEDS: NOVOLOG FLEXPEN-MODERATE RESISTANCE 1 UNITS SC ×2 (09:08→12:38)
[2025-06-10] MEDS: LOKELMA 5 GRAM PO (10:32)
[2025-06-10] MEDS: NSS 250 IV ×2 (10:33→19:27)
--- NOTE | 2025-06-10 10:38 | WOUNDNOTE ---
WON RN NOTE: Followed up today as requested by nursing for worsening skin tears on arms. PCT at bedside assisted with assessment and confirmed that sacrum is intact, foam was applied but patient ripped it off she states. Patient was calm during
assessment with frequent reassurance. He has bouts of hitting and thrashing around per PCT, is in 4 point soft restraints. Skin tears healing nicely, R arm more ecchymotic red. Dressing's changed using Vaseline gauze, ABD pad and Kerlix. Will sign
off unless needed.
--- NOTE | 2025-06-10 10:57 | W.PN.HOSP.TC ---
Today's Communication/Plan
-
Intermittent agitation - avoid irritation, adjust meds as per psych (advised Trazodone 50mg TID) will adjust after EKG for QTc
BZD stopped as per previous psych note
Lokelma, IVF bolus and AM BMP ordered
Assessment / Plan
Assessment / Plan
70yo M with advanced dementia, afib on ELiquis, HTN, CKD, schizophrenia, DM, CAD s/p CABG admitted with anemia, most likely 2/2 CKD stage 4. Also noticed LE swelling. As per family- previousy patient on Epo weekly with chronic anemia and as per
nephrology - not dialysis candidate 2/2 advanced dementia. Discharge delayed due to need in restraints
A/P:
#Anemia 2/2 CKD stage 4
Epo
s/p 1 unit PRBC in ED
NEphro follows
FOBT neg
#Acute on chronic HFpEF
#NSVT
#CAD s/p CABG
#Paroxysmal Afib
Echo: EF 55-60% with mild aortic root dilation, no clinical significant valvular disease
Cardio followed - diuresis as tolerated
Telemetry
cont rate cntrol
follow electrolytes
#hypomagnesemia
repleted
#Hyperkalemia
mild
unclear reason, maybe high potassium diet, start renal diet
follow
#DM type 2 with nephropathy
AccuCheck, Insulin SS, DM diet
#Essential HTN
#HLD
#Hx of CVA with residual L sided weakness
#BPH
#Advanced dementia with behavioral disturbances
#Schizophrenia
psych consult
cont home meds
DVT ppx Eliquis
Full code
I have spent at least 55min reviewing chart, test results and providing direct patient care
Anticipated Discharge: > 48 hours
Subjective/Interval History
-
Date of Service: June 10, 2025
Objective Data
-
Labs:
Laboratory Results
06/10/25
07:52
WBC 7.3
Hgb 8.8 L
Hct 28.3 L
Plt Count 174
Sodium 137
Potassium 5.3 H
Chloride 107
Carbon Dioxide 22
BUN 61 H
Creatinine 3.8 H
Glucose 156 H
Calcium 9.1
Vital Signs:
Vital Signs
Temp Pulse Resp BP Pulse Ox
97.7 F 72 17 120/87 97
06/10/25 07:10 06/10/25 09:05 06/10/25 07:10 06/10/25 09:05 06/10/25 07:10
I&O
06/09/25 06/10/25 06/11/25
06:59 06:59 06:59
Intake Total 920 / 920 1560 / 1560 660 / 660
Output Total 340 / 340 200 / 200
Balance 580 / 580 1360 / 1360 660 / 660
Review of Systems
-
Unable to obtain full review of systems at this time due to: Dementia
History Source: Patient
Physical Exam
-
General: No Apparent Distress
Cardiac: Regular Rhythm
Neuro: Awake, Alert and Oriented (to himself only)
Psych: Apparent Dementia
[2025-06-10 11:55] LABS: Glucose - Point of Care 199 mg/dl (70-99)
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
--- NOTE | 2025-06-10 13:23 | W.PN.NEPH.PH ---
Today's Communication / Plan
-
follow BMP
Assessment/Plan
-
IMP:
Acute on Chronic Anemia of CKD
LE Edema
CKD IV
Hypomagnesemia
ASCVD- Prior CABG / Prior CVA.
Paroxysmal Atrial Fibrillation
DM-II
Senile Dementia with Behavioral Disturbance
Schizophrenia
Plan:
follow BMP
on bumex
ckd-cr at 3. 5 stable, but not dialysis candidate : due to behavioral disorder
will sign off, call with questions
-
-
Date of Service: June 10, 2025
CC / HPI / ROS
-
Chief Complaint:
CKD stage IV
History of Present Illness:
Creatinine at 3.8 stable
Hemodynamically stable
DEBRA administration on 06/01/2025
K 5.3, refused lokelma
Review of Systems:
No fever
Severe agitation intermittently
Labs
-
Labs:
WBC 7.3 10^3/uL (4.8-10.8) 06/10/25 07:52
RBC 3.30 10^6/uL (4.70-6.10) L 06/10/25 07:52
Hgb 8.8 g/dL (13.0-18.0) L 06/10/25 07:52
Hct 28.3 % (39.0-52.0) L 06/10/25 07:52
Plt Count 174 10^3/uL (130-400) 06/10/25 07:52
Sodium 137 mmol/L (135-145) 06/10/25 07:52
Potassium 5.3 mmol/L (3.5-5.1) H 06/10/25 07:52
Chloride 107 mmol/L (98-107) 06/10/25 07:52
Carbon Dioxide 22 mmol/L (22-30) 06/10/25 07:52
BUN 61 mg/dl (9-20) H 06/10/25 07:52
Creatinine 3.8 mg/dL (0.7-1.3) H 06/10/25 07:52
eGFR 16.11 06/10/25 07:52
Glucose 156 mg/dl (70-99) H 06/10/25 07:52
Calcium 9.1 mg/dl (8.4-10.2) 06/10/25 07:52
Phosphorus 3.9 mg/dl (2.5-4.5) 06/01/25 06:01
Mcj-N-Zerkcmtebsx Pept 47471 pg/ml 06/01/25 06:01
Albumin 3.7 g/dl (3.5-5.0) 05/31/25 21:18
Physical Exam
-
Vital Signs:
Vital Signs
Temp Pulse Resp BP Pulse Ox
97.7 F 72 17 120/87 97
06/10/25 07:10 06/10/25 09:05 06/10/25 07:10 06/10/25 09:05 06/10/25 07:10
[2025-06-10 17:32] LABS: Glucose - Point of Care 222 mg/dl (70-99)
[2025-06-10] MEDS: DESYREL 50 MG PO ×2 (18:39→21:00)
[2025-06-10] MEDS: NOVOLOG FLEXPEN-MODERATE RESISTANCE 3 UNITS SC (18:41)
[2025-06-10] MEDS: MELATONIN 6 MG PO (19:55)
[2025-06-10] MEDS: ZYPREXA 7.5 MG PO (21:00)
[2025-06-10] MEDS: LIPITOR 40 MG PO (21:00)
[2025-06-10] MEDS: FLOMAX 0.4 MG PO (21:00)
[2025-06-10 21:06] VITALS: BP 163/65
[2025-06-10 21:07] LABS: Glucose - Point of Care 233 mg/dl (70-99)
--- NOTE | 2025-06-11 05:43 | PTCARENOTE ---
Pt calm and pleasant at start of this RN's shift. Cooperative with all medication administration and nursing interventions. Pt interacting with staff appropriately. Pt had verbalized to PCT his need to void earlier this shift and was able to be
assisted to bedside commode with no issues. Per PCT, pt slept after using commode and has appeared to be sleeping comfortably throughout the night. 1:1 remains at bedside.dd
[2025-06-11 06:00] VITALS: BMI 22.0
[2025-06-11 07:45] LABS: Glucose - Point of Care 143 mg/dl (70-99)
[2025-06-11] MEDS: NOVOLOG FLEXPEN-MODERATE RESISTANCE SC (08:04)
[2025-06-11 08:08] VITALS: BP 146/70
[2025-06-11] MEDS: APRESOLINE 50 MG PO ×3 (08:15→21:00)
[2025-06-11] MEDS: VITAMIN D3 (cholecalciferol) 25 MCG PO (08:16)
[2025-06-11] MEDS: BUMEX 1 MG PO (08:16)
[2025-06-11] MEDS: PROTONIX 40 MG PO (08:16)
[2025-06-11] MEDS: PLAVIX 75 MG PO (08:16)
[2025-06-11] MEDS: BUSPAR 10 MG PO ×2 (08:16→19:42)
[2025-06-11] MEDS: ELIQUIS 2.5 MG PO ×2 (08:16→19:42)
[2025-06-11] MEDS: FOLVITE 1 MG PO (08:16)
[2025-06-11] MEDS: COREG 25 MG PO ×2 (08:16→19:42)
[2025-06-11] MEDS: DESYREL 50 MG PO (08:17)
[2025-06-11] MEDS: ZENPEP DELAYED RELEASE CAPSULE 1 CAPSULE PO ×3 (08:21→16:54)
[2025-06-11] MEDS: NOVOLOG FLEXPEN 4 UNITS SC ×3 (08:27→17:40)
[2025-06-11 08:48] LABS: Blood Urea Nitrogen 65 mg/dl (9-20); Calcium 8.5 mg/dl (8.4-10.2); Carbon Dioxide 23 mmol/L (22-30); Chloride 108 mmol/L (98-107); Estimated Creatinine Clearance 16 ml/min; Glucose 138 mg/dl (70-99); Potassium 5.4 mmol/L (3.5-5.1); Sodium 136 mmol/L (135-145); eGFR 14.71
[2025-06-11] MEDS: NSS 500 IV ×2 (09:41→23:06)
--- NOTE | 2025-06-11 10:22 | W.PN.HOSP.TC ---
Today's Communication/Plan
-
hold Bumex, Trazodone
IVF
Nephro confirmed no HD
follow BMP
ChestXR, UA, CBC, lactate
Assessment / Plan
Assessment / Plan
70yo M with advanced dementia, afib on Eliquis, HTN, CKD, schizophrenia, DM, CAD s/p CABG admitted with anemia, most likely 2/2 CKD stage 4. Also noticed LE swelling. As per family- previous patient on Epo weekly with chronic anemia and as per
nephrology - not dialysis candidate 2/2 advanced dementia. Discharge delayed due to need in restraints. Also developed worsening of hi kidney function on 06/11/25 with worsening sedation due to increased Trazodone.
As per detailed discussion with daughter on 06/11/25: explained BRIDGETTE and patient deemed not to be a candidate for HD. Daughter acknowledged info and plan and still confirmed full code for the patient
A/P:
#Anemia 2/2 CKD stage 4
#BRIDGETTE
Epo
s/p 1 unit PRBC in ED
NEphro follows
FOBT neg
Developed worsening Cr on 06/10/25, that continued to worsen after hyration
No significant urinary retention as pr RN, patient incontinent, PVR in 300th, cont bladder scan
Possibly poor oral intake due to oversedation with Trazodone - hold for now
Follow BMP
Not a candidate for HD as per alarm security or surveillance monitor
#Acute on chronic HFpEF
#NSVT
#CAD s/p CABG
#Paroxysmal Afib
Echo: EF 55-60% with mild aortic root dilation, no clinical significant valvular disease
Cardio followed - diuresis as tolerated
Telemetry
cont rate control
follow electrolytes
#hypomagnesemia
repleted
#Hyperkalemia
mild
unclear reason, maybe high potassium diet, start renal diet
follow
#DM type 2 with nephropathy
AccuCheck, Insulin SS, DM diet
#Essential HTN
#HLD
#Hx of CVA with residual L sided weakness
#BPH
#Advanced dementia with behavioral disturbances
#Schizophrenia
psych consult
cont home meds
DVT ppx Eliquis
Full code
I have spent at least 58min reviewing chart, test results, communication with consultants and family and providing direct patient care
Anticipated Discharge: > 48 hours
Subjective/Interval History
-
Date of Service: June 11, 2025
Objective Data
-
Labs:
Laboratory Results
06/11/25
07:59
Sodium 136
Potassium 5.4 H
Chloride 108 H
Carbon Dioxide 23
BUN 65 H
Creatinine 4.1 H*
Glucose 138 H
Calcium 8.5
Vital Signs:
Vital Signs
Temp Pulse Resp BP Pulse Ox
97.7 F 73 18 146/70 96
06/10/25 07:10 06/11/25 08:15 06/11/25 08:08 06/11/25 08:15 06/11/25 08:08
I&O
06/10/25 06/11/25 06/12/25
06:59 06:59 06:59
Intake Total 1560 / 1560 1020 / 1020
Output Total 200 / 200 400 / 400
Balance 1360 / 1360 1020 / 1020 -400 / -400
Review of Systems
-
Unable to obtain full review of systems at this time due to: Dementia
Physical Exam
-
Respiratory: Clear to Auscultation
Cardiac: Regular Rhythm
Neuro: Other (sleepy)
Psych: Calm
[2025-06-11 10:53] LABS: Hematocrit 29.9 % (39.0-52.0); Hemoglobin 9.5 g/dL (13.0-18.0); Mean Corp Hgb Conc. 31.8 g/dL (33.0-37.0); Mean Corpuscular Volume 85.2 fL (80.0-94.0); Nucleated Red Blood Cells % 0 % (-); Platelet Count 221 10^3/uL (130-400); Red Cell Dist. Width 18.8 % (11.5-14.5)
[2025-06-11] MEDS: LOKELMA 10 GRAM PO (11:06)
[2025-06-11 11:15] LABS: ALT (SGPT) 15 U/L (0-50); AST (SGOT) 18 U/L (17-59); Albumin 3.6 g/dl (3.5-5.0); Alkaline Phosphatase 73 U/L (38-126); Total Protein 6.1 g/dl (6.3-8.2)
[2025-06-11 12:02] LABS: Glucose - Point of Care 233 mg/dl (70-99)
--- NOTE | 2025-06-11 13:01 | W.PN.UPDATE ---
Update Note
Progress Note Update
patient seen chart reviewed. discussed with nursing. mr liao slept through the night last evening which is a great plus. he is in good humor albeit very confused when i saw him at lunchtime. he was eating his lunch with great gusto. noted that
trazodone has been held for sedation. lexapro stopped given qtc issues. current psych meds include zyprexa and buspar. bun and creatinine are climibing with cr at 4.1 . he is not a candidate for dialysis. it appears there have been some reports
of acute kidney issues in elderly patients with risk factors such as dehydration rhabdo, hypotension, urinary retention none of which seem relevant here. his creatinine at admit was 3.9 and has been up and down in the threes and now 4.1 since his
arrival. as he appears to be in good humor today with a reasonable level of comfort and cooperation with nursing staff did not make any changes in his psych meds.
--- NOTE | 2025-06-11 13:25 | W.PN.NEPH.PH ---
Today's Communication / Plan
-
Lokelma was provided for hyperkalemia
Diuretics held today
Checking postvoid bladder scan for possible obstructive component contributing to creatinine rise
Assessment/Plan
-
IMP:
Acute on Chronic Anemia of CKD
LE Edema
CKD IV
Hypomagnesemia
ASCVD- Prior CABG / Prior CVA.
Paroxysmal Atrial Fibrillation
DM-II
Senile Dementia with Behavioral Disturbance
Schizophrenia
Plan:
follow BMP
on bumex
ckd-cr up to 4.1, uop ~400ccstable, but not dialysis candidate : due to behavioral disorder
Will check postvoid bladder scan to assure there is no obstructive component
Remains hemodynamically stable on the current antihypertensive regimin
Chest x-ray personally reviewed without congestive heart failure or pneumonic finding
Lokelma provided for hyperkalemia,bumex held
Patient at increased clinical risk due to worsening renal failure and hyperkalemia
-
-
Date of Service: June 11, 2025
CC / HPI / ROS
-
Chief Complaint:
CKD stage IV
History of Present Illness:
Creatinine up to 4 point
Hemodynamically stable
DEBRA administration on 06/01/2025
K 5.4,
Review of Systems:
No fever
Severe agitation intermittently
Baseline confusion and dementia
Incontinent
Labs
-
Labs:
WBC 7.4 10^3/uL (4.8-10.8) 06/11/25 07:59
RBC 3.51 10^6/uL (4.70-6.10) L 06/11/25 07:59
Hgb 9.5 g/dL (13.0-18.0) L 06/11/25 07:59
Hct 29.9 % (39.0-52.0) L 06/11/25 07:59
Plt Count 221 10^3/uL (130-400) D 06/11/25 07:59
eGFR 14.71 06/11/25 07:59
Phosphorus 3.9 mg/dl (2.5-4.5) 06/01/25 06:01
Ubz-B-Ytpzzwghoyd Pept 62765 pg/ml 06/01/25 06:01
Albumin 3.6 g/dl (3.5-5.0) 06/11/25 07:59
Physical Exam
-
Vital Signs:
Vital Signs
Temp Pulse Resp BP Pulse Ox
97.7 F 73 18 146/70 96
06/10/25 07:10 06/11/25 08:15 06/11/25 08:08 06/11/25 08:15 06/11/25 08:08
Cardiovascular:: Regular rate and rhythm
Respiratory:: Bilateral: CTA
Lung Excursion:: Normal
Abdomen:: Nontender and Soft
Bowel Sounds:: Decreased
Extremity Edema:: +1: Bilateral: (trace)
Escalera Catheter: No
[2025-06-11] MEDS: NOVOLOG FLEXPEN-MODERATE RESISTANCE 3 UNITS SC ×2 (13:33→17:41)
[2025-06-11 13:41] VITALS: BP 134/53; PULSE 68; O2SAT 100
[2025-06-11 13:47] LABS: Urine Character Clear (Clear)
[2025-06-11 14:14] LABS: Urine Urothelial Cell 0-2 /LPF (FEW)
[2025-06-11 16:00] VITALS: BP 161/73
[2025-06-11 17:02] LABS: Glucose - Point of Care 248 mg/dl (70-99)
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
[2025-06-11 17:31] LABS: Glucose - Point of Care 242 mg/dl (70-99)
[2025-06-11] MEDS: MELATONIN 6 MG PO (19:41)
[2025-06-11 19:49] VITALS: BP 123/52
[2025-06-11] MEDS: DESYREL 25 MG PO (20:18)
[2025-06-11 21:00] VITALS: BP 138/91
[2025-06-11] MEDS: ZYPREXA 7.5 MG PO (21:00)
[2025-06-11] MEDS: LIPITOR 40 MG PO (21:00)
[2025-06-11] MEDS: FLOMAX 0.4 MG PO (21:00)
[2025-06-11 22:04] LABS: Glucose - Point of Care 168 mg/dl (70-99)
[2025-06-12] MEDS: TYLENOL 650 MG PO ×2 (00:28→21:33)
[2025-06-12 00:58] LABS: Blood Urea Nitrogen 61 mg/dl (9-20); Calcium 7.7 mg/dl (8.4-10.2); Carbon Dioxide 20 mmol/L (22-30); Chloride 108 mmol/L (98-107); Estimated Creatinine Clearance 16 ml/min; Glucose 157 mg/dl (70-99); Potassium 4.6 mmol/L (3.5-5.1); Sodium 135 mmol/L (135-145); eGFR 15.62
[2025-06-12 07:00] VITALS: BP 160/69
[2025-06-12 08:09] LABS: Glucose - Point of Care 167 mg/dl (70-99)
[2025-06-12] MEDS: NOVOLOG FLEXPEN-MODERATE RESISTANCE 1 UNITS SC (08:09)
[2025-06-12] MEDS: APRESOLINE 50 MG PO ×3 (08:10→21:30)
[2025-06-12] MEDS: NOVOLOG FLEXPEN 4 UNITS SC ×3 (08:10→17:43)
[2025-06-12] MEDS: BUSPAR 10 MG PO ×2 (08:10→21:31)
[2025-06-12] MEDS: VITAMIN D3 (cholecalciferol) 25 MCG PO (08:11)
[2025-06-12] MEDS: COREG 25 MG PO ×2 (08:11→21:33)
[2025-06-12] MEDS: PLAVIX 75 MG PO (08:11)
[2025-06-12] MEDS: DESYREL 25 MG PO ×3 (08:11→21:31)
[2025-06-12] MEDS: ELIQUIS 2.5 MG PO ×2 (08:11→21:33)
[2025-06-12] MEDS: FOLVITE 1 MG PO (08:11)
[2025-06-12] MEDS: PROTONIX 40 MG PO (08:11)
[2025-06-12] MEDS: ZENPEP DELAYED RELEASE CAPSULE 1 CAPSULE PO ×3 (08:12→16:07)
[2025-06-12 09:23] LABS: Blood Urea Nitrogen 64 mg/dl (9-20); Calcium 8.1 mg/dl (8.4-10.2); Carbon Dioxide 21 mmol/L (22-30); Chloride 109 mmol/L (98-107); Estimated Creatinine Clearance 15 ml/min; Glucose 142 mg/dl (70-99); Potassium 5.2 mmol/L (3.5-5.1); Sodium 136 mmol/L (135-145); eGFR 14.29
--- NOTE | 2025-06-12 10:40 | W.PN.NEPH.PH ---
Today's Communication / Plan
-
follow BMP
Assessment/Plan
-
IMP:
Acute on Chronic Anemia of CKD
LE Edema
CKD IV
Hypomagnesemia
ASCVD- Prior CABG / Prior CVA.
Paroxysmal Atrial Fibrillation
DM-II
Senile Dementia with Behavioral Disturbance
Schizophrenia
Plan:
follow BMP
off bumex
Not dialysis candidate : due to behavioral disorder
high PVR, follow. may need straight cath, not sure he will tolerate a Escalera
lokelma
-
-
Date of Service: June 12, 2025
CC / HPI / ROS
-
Chief Complaint:
CKD stage IV
History of Present Illness:
Creatinine up to 4.2
Hemodynamically stable
DEBRA administration on 06/01/2025
K 5.2
Review of Systems:
No fever
Severe agitation intermittently
Baseline confusion and dementia
Incontinent
Labs
-
Labs:
WBC 7.4 10^3/uL (4.8-10.8) 06/11/25 07:59
RBC 3.51 10^6/uL (4.70-6.10) L 06/11/25 07:59
Hgb 9.5 g/dL (13.0-18.0) L 06/11/25 07:59
Hct 29.9 % (39.0-52.0) L 06/11/25 07:59
Plt Count 221 10^3/uL (130-400) D 06/11/25 07:59
Sodium 136 mmol/L (135-145) 06/12/25 08:08
Potassium 5.2 mmol/L (3.5-5.1) H 06/12/25 08:08
Chloride 109 mmol/L (98-107) H 06/12/25 08:08
Carbon Dioxide 21 mmol/L (22-30) L 06/12/25 08:08
BUN 64 mg/dl (9-20) H 06/12/25 08:08
Creatinine 4.2 mg/dL (0.7-1.3) H* 06/12/25 08:08
eGFR 14.29 06/12/25 08:08
Glucose 142 mg/dl (70-99) H 06/12/25 08:08
Calcium 8.1 mg/dl (8.4-10.2) L 06/12/25 08:08
Phosphorus 3.9 mg/dl (2.5-4.5) 06/01/25 06:01
Foq-L-Nrsizqiwgli Pept 08871 pg/ml 06/01/25 06:01
Albumin 3.6 g/dl (3.5-5.0) 06/11/25 07:59
Physical Exam
-
Vital Signs:
Vital Signs
Temp Pulse Resp BP Pulse Ox
97.4 F 76 18 160/69 99
06/12/25 07:00 06/12/25 07:00 06/12/25 07:00 06/12/25 08:10 06/12/25 07:00
Cardiovascular:: Regular rate and rhythm
Respiratory:: Bilateral: Coarse
Lung Excursion:: Normal
Abdomen:: Nontender and Soft
Bowel Sounds:: Normal
Extremity Edema:: None: Bilateral:
[2025-06-12] MEDS: LOKELMA 10 GRAM PO (11:21)
--- NOTE | 2025-06-12 11:37 | W.PN.HOSP.TC ---
Today's Communication/Plan
-
Lokelma
Bladder scan q6h
Patient awake - restart Trazodone lower dose 25mg TID
check proBNP
Assessment / Plan
Assessment / Plan
70yo M with advanced dementia, afib on Eliquis, HTN, CKD, schizophrenia, DM, CAD s/p CABG admitted with anemia, most likely 2/2 CKD stage 4. Also noticed LE swelling. As per family- previous patient on Epo weekly with chronic anemia and as per
nephrology - not dialysis candidate 2/2 advanced dementia. Discharge delayed due to need in restraints. Also developed worsening of hi kidney function on 06/11/25 with worsening sedation due to increased Trazodone.
As per detailed discussion with daughter on 06/11/25: explained BRIDGETTE and patient deemed not to be a candidate for HD. Daughter acknowledged info and plan and still confirmed full code for the patient
A/P:
#Anemia 2/2 CKD stage 4
#BRIDGETTE
#High PVR - most likely intermittent urinary retention
#Recurrent hyperkalemia 2/2 CKD
#Asymptomatic bacteriuria without pyuria
Epo
s/p 1 unit PRBC in ED
Nephro follows: Not a candidate for HD as per coordinator hotels
Lokelma PRN
Bladder scan q6h
FOBT neg
Developed worsening Cr on 06/10/25, that continued to worsen after hyration
No significant urinary retention as pr RN, patient incontinent, PVR in 300th, cont bladder scan
Possibly poor oral intake due to oversedation with Trazodone - hold for now
Follow BMP
Ho,lding Bumex as of 06/11/25
#Acute on chronic HFpEF
#NSVT
#CAD s/p CABG
#Paroxysmal Afib
Echo: EF 55-60% with mild aortic root dilation, no clinical significant valvular disease
Cardio followed - diuresis as tolerated
Telemetry
cont rate control
follow electrolytes
#hypomagnesemia
repleted
#Hyperkalemia
mild
unclear reason, maybe high potassium diet, start renal diet
follow
#DM type 2 with nephropathy
AccuCheck, Insulin SS, DM diet
#Diarrhea
2/2 lokelma
follow, clinically
Abd not tender, patient with good apetite
#Essential HTN
#HLD
#Hx of CVA with residual L sided weakness
#BPH
#Advanced dementia with behavioral disturbances
#Schizophrenia
psych consult
cont home meds
DVT ppx Eliquis
Full code
I have spent at least 51min reviewing chart, test results, communication with consultants and family and providing direct patient care
Anticipated Discharge: > 48 hours
Subjective/Interval History
-
Date of Service: June 12, 2025
Objective Data
-
Labs:
Laboratory Results
06/12/25 06/12/25
00:28 08:08
Sodium 135 136
Potassium 4.6 5.2 H
Chloride 108 H 109 H
Carbon Dioxide 20 L 21 L
BUN 61 H 64 H
Creatinine 3.9 H 4.2 H*
Glucose 157 H 142 H
Calcium 7.7 L 8.1 L
Vital Signs:
Vital Signs
Temp Pulse Resp BP Pulse Ox
97.4 F 76 18 160/69 99
06/12/25 07:00 06/12/25 07:00 06/12/25 07:00 06/12/25 08:10 06/12/25 07:00
I&O
06/11/25 06/12/25 06/13/25
06:59 06:59 06:59
Intake Total 1020 / 1020 1320 / 1320
Output Total 1400 / 1400
Balance 1020 / 1020 -80 / -80
Review of Systems
-
Unable to obtain full review of systems at this time due to: Dementia
History Source: Patient
Physical Exam
-
General: No Apparent Distress
HEENT: Normocephalic
Respiratory: Clear to Auscultation
GI: Soft, Nontender and Nondistended
Neuro: Awake and Alert
Psych: Calm and Apparent Dementia
[2025-06-12 11:59] VITALS: BP 118/73
--- NOTE | 2025-06-12 12:46 | W.PN.UPDATE ---
Addendum entered and electronically signed by Chad Cruz MD 06/12/25 12:56:
Correction on Trazodone dosing- it was tapered to 25 mg T I D due to excess sedation/confusion.
Will monitor on decreased dose.
Original Note:
Update Note
Progress Note Update
Pt seen, chart reviewed, discussed with 1:1 staff. Pt asleep, resting quietly. He has been intermittently agitated. He did eat this morning. Trazodone was increased to 75 mg T I D.
Imp/Rec: Hx of Schizophrenia, Progressive Dementia, with intermittent agitation
Continue Zyprexa, Buspar, Trazodone- monitor on increased dose for agitation. Will follow
[2025-06-12 12:53] LABS: Glucose - Point of Care 303 mg/dl (70-99)
[2025-06-12] MEDS: NOVOLOG FLEXPEN-MODERATE RESISTANCE 7 UNITS SC (13:21)
[2025-06-12] MEDS: NSS 500 IV (13:24)
[2025-06-12 15:20] VITALS: BP 110/72
[2025-06-12 16:44] LABS: Glucose - Point of Care 237 mg/dl (70-99)
[2025-06-12] MEDS: NOVOLOG FLEXPEN-MODERATE RESISTANCE 3 UNITS SC (17:43)
[2025-06-12 21:15] LABS: Glucose - Point of Care 170 mg/dl (70-99)
[2025-06-12] MEDS: ZYPREXA 7.5 MG PO (21:29)
[2025-06-12] MEDS: MELATONIN 6 MG PO (21:30)
[2025-06-12] MEDS: LIPITOR 40 MG PO (21:30)
[2025-06-12] MEDS: FLOMAX 0.4 MG PO (21:33)
[2025-06-13] VITALS: BP 118/73
[2025-06-13] MEDS: VALIUM INJECTION 2 MG IV (01:27)
[2025-06-13 07:18] VITALS: BP 139/90
[2025-06-13 07:44] LABS: Glucose - Point of Care 163 mg/dl (70-99)
[2025-06-13] MEDS: NOVOLOG FLEXPEN 4 UNITS SC ×2 (08:21→11:57)
[2025-06-13] MEDS: NOVOLOG FLEXPEN-MODERATE RESISTANCE 1 UNITS SC (08:21)
[2025-06-13] MEDS: PLAVIX 75 MG PO (08:22)
[2025-06-13] MEDS: APRESOLINE 50 MG PO ×3 (08:22→21:43)
[2025-06-13] MEDS: ELIQUIS 2.5 MG PO ×2 (08:22→19:29)
[2025-06-13] MEDS: VITAMIN D3 (cholecalciferol) 25 MCG PO (08:22)
[2025-06-13] MEDS: PROTONIX 40 MG PO (08:22)
[2025-06-13] MEDS: FOLVITE 1 MG PO (08:22)
[2025-06-13] MEDS: DESYREL 25 MG PO ×3 (08:22→21:48)
[2025-06-13] MEDS: BUSPAR 10 MG PO ×2 (08:23→19:30)
[2025-06-13] MEDS: COREG 25 MG PO ×2 (08:23→19:29)
[2025-06-13] MEDS: ZENPEP DELAYED RELEASE CAPSULE 1 CAPSULE PO ×3 (08:26→16:08)
[2025-06-13 09:35] LABS: Blood Urea Nitrogen 65 mg/dl (9-20); Calcium 7.9 mg/dl (8.4-10.2); Carbon Dioxide 17 mmol/L (22-30); Chloride 113 mmol/L (98-107); Estimated Creatinine Clearance 15 ml/min; Glucose 218 mg/dl (70-99); Potassium 5.3 mmol/L (3.5-5.1); Sodium 137 mmol/L (135-145); eGFR 14.29
--- NOTE | 2025-06-13 10:16 | W.PN.HOSP.TC ---
Addendum entered and electronically signed by Julian Hernandez MD 06/13/25 13:50:
Discussed in details with daughter bedside - Patient previously on Trazodone 100mg nightly. Has Hx of recurrent UTI and BRIDGETTE resolving on Abx and IVF, at this time afebrile, no leukocytosis and no pyuria on UA, neg nitrite and leuk. esterase on UA.
Cont attempts to hydrate. Explained that this is a temporarizing measure and nephrology deemed patient not to be a candidate for HD. SHe verbalized understanding. Discussed palliative and hospice - due to personal belief family would liek to cont
FUll code and current medications for the patient, so declined hospice previously. Might be open to outpatient palliative approach.
Original Note:
Today's Communication/Plan
-
bicarb
lokelma
IVF
bladder scans
Neprho to follow
Assessment / Plan
Assessment / Plan
70yo M with advanced dementia, afib on Eliquis, HTN, CKD, schizophrenia, DM, CAD s/p CABG admitted with anemia, most likely 2/2 CKD stage 4. Also noticed LE swelling. As per family- previous patient on Epo weekly with chronic anemia and as per
nephrology - not dialysis candidate 2/2 advanced dementia. Discharge delayed due to need in restraints. Also developed worsening of hi kidney function on 06/11/25 with worsening sedation due to increased Trazodone.
As per detailed discussion with daughter on 06/11/25: explained BRIDGETTE and patient deemed not to be a candidate for HD. Daughter acknowledged info and plan and still confirmed full code for the patient
A/P:
#Anemia 2/2 CKD stage 4
#BRIDGETTE
#High PVR - most likely intermittent urinary retention
#Recurrent hyperkalemia 2/2 CKD
#Asymptomatic bacteriuria without pyuria
#metabolic acidosis 2/2 BRIDGETTE
Epo
s/p 1 unit PRBC in ED
Nephro follows: Not a candidate for HD as per rn imaging
Diannekelma PRN
Bladder scan q6h
FOBT neg
Developed worsening Cr on 06/10/25, that continued to worsen after hyration
No significant urinary retention as pr RN, patient incontinent, PVR in 300ml, cont bladder scan
Follow BMP
Holding Bumex as of 06/11/25
Bicarb
#Acute on chronic HFpEF
#NSVT
#CAD s/p CABG
#Paroxysmal Afib
Echo: EF 55-60% with mild aortic root dilation, no clinical significant valvular disease
Cardio followed - diuresis as tolerated
Telemetry
cont rate control
follow electrolytes
#hypomagnesemia
repleted
#Hyperkalemia
mild
unclear reason, maybe high potassium diet, start renal diet
follow
#DM type 2 with nephropathy
AccuCheck, Insulin SS, DM diet
#Diarrhea
2/2 lokelma
follow, clinically
Abd not tender, patient with good apetite
#Essential HTN
#HLD
#Hx of CVA with residual L sided weakness
#BPH
#Advanced dementia with behavioral disturbances
#Schizophrenia
psych consult
cont home meds
DVT ppx Eliquis
Full code
I have spent at least 51min reviewing chart, test results, communication with consultants and family and providing direct patient care
Anticipated Discharge: 24 - 48 hours
Subjective/Interval History
-
Date of Service: June 13, 2025
Objective Data
-
Labs:
Laboratory Results
06/13/25
09:05
Sodium 137
Potassium 5.3 H
Chloride 113 H
Carbon Dioxide 17 L
BUN 65 H
Creatinine 4.2 H*
Glucose 218 H
Calcium 7.9 L
Vital Signs:
Vital Signs
Temp Pulse Resp BP Pulse Ox
97.7 F 80 18 139/90 95
06/13/25 07:18 06/13/25 08:22 06/13/25 07:18 06/13/25 08:22 06/13/25 08:35
I&O
06/12/25 06/13/25 06/14/25
06:59 06:59 06:59
Intake Total 1320 / 1320 400 / 400
Output Total 1400 / 1400 250 / 250
Balance -80 / -80 150 / 150
Review of Systems
-
Unable to obtain full review of systems at this time due to: Dementia
History Source: Patient
Physical Exam
-
General: No Apparent Distress
Neuro: Awake and Alert
Psych: Calm
--- NOTE | 2025-06-13 10:35 | W.PN.UPDATE ---
Update Note
Progress Note Update
Pt seen, reviewed with nursing staff. 1:1 staff reports pt is calm this morning, ate breakfast, although impulsive. Pt wakes when spoken to, gives one-word answers. No agitation or aggression at present. Staff reports pt is impulsive, escalates
if he needs to be redirected. No signs of medication side effects.
Imp: Hx of Schizophrenia, Progressive Dementia, with intermittent agitation
Continue Zyprexa, Buspar, Trazodon. Will follow
[2025-06-13] MEDS: LOKELMA 10 GRAM PO (10:46)
[2025-06-13] MEDS: NSS 500 IV ×2 (10:46→14:03)
[2025-06-13 11:23] LABS: Glucose - Point of Care 118 mg/dl (70-99)
[2025-06-13] MEDS: NOVOLOG FLEXPEN-MODERATE RESISTANCE SC (11:29)
--- NOTE | 2025-06-13 14:24 | W.PN.NEPH.PH ---
Today's Communication / Plan
-
Lokelma
Assessment/Plan
-
IMP:
Acute on Chronic Anemia of CKD
LE Edema
CKD IV
Hypomagnesemia
ASCVD- Prior CABG / Prior CVA.
Paroxysmal Atrial Fibrillation
DM-II
Senile Dementia with Behavioral Disturbance
Schizophrenia
Plan:
follow BMP
off bumex
Not dialysis candidate : due to behavioral disorder
high PVR, follow. may need straight cath, not sure he will tolerate a Escalera
lokelma as needed, may need daily. He has not wrist fused recently
Continue bicarbonate
-
-
Date of Service: June 13, 2025
CC / HPI / ROS
-
Chief Complaint:
CKD stage IV
History of Present Illness:
Creatinine up to 4.2 but stable
Hemodynamically stable
DEBRA administration on 06/01/2025
K 5.3
Review of Systems:
No fever
Severe agitation intermittently
Baseline confusion and dementia
Incontinent
Labs
-
Labs:
WBC 7.4 10^3/uL (4.8-10.8) 06/11/25 07:59
RBC 3.51 10^6/uL (4.70-6.10) L 06/11/25 07:59
Hgb 9.5 g/dL (13.0-18.0) L 06/11/25 07:59
Hct 29.9 % (39.0-52.0) L 06/11/25 07:59
Plt Count 221 10^3/uL (130-400) D 06/11/25 07:59
Sodium 137 mmol/L (135-145) 06/13/25 09:05
Potassium 5.3 mmol/L (3.5-5.1) H 06/13/25 09:05
Chloride 113 mmol/L (98-107) H 06/13/25 09:05
Carbon Dioxide 17 mmol/L (22-30) L 06/13/25 09:05
BUN 65 mg/dl (9-20) H 06/13/25 09:05
Creatinine 4.2 mg/dL (0.7-1.3) H* 06/13/25 09:05
eGFR 14.29 06/13/25 09:05
Glucose 218 mg/dl (70-99) H 06/13/25 09:05
Calcium 7.9 mg/dl (8.4-10.2) L 06/13/25 09:05
Phosphorus 3.9 mg/dl (2.5-4.5) 06/01/25 06:01
Tik-V-Qsuhajqtpkz Pept 4650 pg/ml 06/12/25 08:08
Albumin 3.6 g/dl (3.5-5.0) 06/11/25 07:59
Physical Exam
-
Vital Signs:
Vital Signs
Temp Pulse Resp BP Pulse Ox
97.7 F 80 18 139/90 98
06/13/25 07:18 06/13/25 08:22 06/13/25 07:18 06/13/25 08:22 06/13/25 11:15
Cardiovascular:: Regular rate and rhythm
Respiratory:: Bilateral: Coarse
Lung Excursion:: Normal
Abdomen:: Nontender and Soft
Bowel Sounds:: Normal
Extremity Edema:: None: Bilateral:
[2025-06-13 15:05] VITALS: BP 170/80
[2025-06-13 15:50] LABS: Glucose - Point of Care 217 mg/dl (70-99)
[2025-06-13] MEDS: SODIUM BICARBONATE 650 MG PO ×2 (16:08→21:43)
[2025-06-13] MEDS: NOVOLOG FLEXPEN-MODERATE RESISTANCE 3 UNITS SC (16:09)
[2025-06-13] MEDS: NOVOLOG FLEXPEN 6 UNITS SC (16:10)
[2025-06-13 17:47] VITALS: BP 139/92
[2025-06-13 19:18] VITALS: BP 142/94
[2025-06-13] MEDS: MELATONIN 6 MG PO (19:30)
[2025-06-13] MEDS: LIPITOR 40 MG PO (21:43)
[2025-06-13] MEDS: FLOMAX 0.4 MG PO (21:43)
[2025-06-13] MEDS: ZYPREXA 7.5 MG PO (21:43)
[2025-06-13 22:26] LABS: Glucose - Point of Care 199 mg/dl (70-99)
[2025-06-13 23:24] VITALS: BP 151/60
[2025-06-14 06:00] VITALS: BMI 22.7
[2025-06-14 08:21] VITALS: BP 116/78
[2025-06-14] MEDS: ELIQUIS 2.5 MG PO ×2 (08:23→19:50)
[2025-06-14] MEDS: COREG 25 MG PO ×2 (08:23→19:50)
[2025-06-14] MEDS: FOLVITE 1 MG PO (08:23)
[2025-06-14] MEDS: APRESOLINE 50 MG PO ×2 (08:23→15:18)
[2025-06-14] MEDS: BUSPAR 10 MG PO ×2 (08:23→19:50)
[2025-06-14] MEDS: TYLENOL 650 MG PO (08:23)
[2025-06-14 08:24] LABS: Glucose - Point of Care 166 mg/dl (70-99)
[2025-06-14] MEDS: PROTONIX 40 MG PO (08:24)
[2025-06-14] MEDS: PLAVIX 75 MG PO (08:24)
[2025-06-14] MEDS: ZENPEP DELAYED RELEASE CAPSULE 1 CAPSULE PO ×2 (08:24→13:11)
[2025-06-14] MEDS: DESYREL 25 MG PO ×2 (08:24→15:18)
[2025-06-14] MEDS: NOVOLOG FLEXPEN-MODERATE RESISTANCE 1 UNITS SC ×2 (08:26→13:12)
[2025-06-14] MEDS: SODIUM BICARBONATE 650 MG PO ×2 (08:26→15:17)
[2025-06-14] MEDS: VITAMIN D3 (cholecalciferol) 25 MCG PO (08:26)
[2025-06-14] MEDS: NOVOLOG FLEXPEN 6 UNITS SC ×2 (08:27→13:12)
[2025-06-14 09:29] LABS: Blood Urea Nitrogen 64 mg/dl (9-20); Calcium 8.3 mg/dl (8.4-10.2); Carbon Dioxide 21 mmol/L (22-30); Chloride 109 mmol/L (98-107); Estimated Creatinine Clearance 16 ml/min; Glucose 182 mg/dl (70-99); Potassium 5.2 mmol/L (3.5-5.1); Sodium 138 mmol/L (135-145); eGFR 15.15
--- NOTE | 2025-06-14 10:12 | W.PN.HOSP.TC ---
Today's Communication/Plan
-
1:1 since Hx of SI until cleared by psychiatry
Medically stable for d/c
Assessment / Plan
Assessment / Plan
70yo M with advanced dementia, afib on Eliquis, HTN, CKD, schizophrenia, DM, CAD s/p CABG admitted with anemia, most likely 2/2 CKD stage 4. Also noticed LE swelling. As per family- previous patient on Epo weekly with chronic anemia and as per
nephrology - not dialysis candidate 2/2 advanced dementia. Discharge delayed due to need in restraints. Also developed worsening of hi kidney function on 06/11/25 with worsening sedation due to increased Trazodone. As per detailed discussion with
daughter on 06/11/25: explained BRIDGETTE and patient deemed not to be a candidate for HD. Daughter acknowledged info and plan and still confirmed full code for the patient .Cr remained stable with new baseline around 4.0, acidosis started to improve.
With no additional mgmt planed - medically stable for d/c back to his facility, BMP in 5-7 days
A/P:
#Anemia 2/2 CKD stage 4
#BRIDGETTE
#High PVR - most likely intermittent urinary retention
#Recurrent hyperkalemia 2/2 CKD
#Asymptomatic bacteriuria without pyuria
#metabolic acidosis 2/2 BRIDGETTE
Epo
s/p 1 unit PRBC in ED
Nephro follows: Not a candidate for HD as per rn labor delivery
Lokelma PRN
Bladder scan q6h
FOBT neg
Developed worsening Cr on 06/10/25, that continued to worsen after hyration
No significant urinary retention as pr RN, patient incontinent, PVR in 300ml, cont bladder scan
Follow BMP
Holding Bumex as of 06/11/25
Bicarb
#Fall
on 06/14/25 when attempted to eugene down, but missed the seat and fel to the floor, however 1:1 was able to catch him, so no injury reported
fall precautions
no concern for syncope
#Acute on chronic HFpEF
#NSVT
#CAD s/p CABG
#Paroxysmal Afib
Echo: EF 55-60% with mild aortic root dilation, no clinical significant valvular disease
Cardio followed - diuresis as tolerated
Telemetry
cont rate control
follow electrolytes
#hypomagnesemia
repleted
#Hyperkalemia
mild
unclear reason, maybe high potassium diet, start renal diet
follow
#DM type 2 with nephropathy
AccuCheck, Insulin SS, DM diet
#Diarrhea
2/2 lokelma
follow, clinically
Abd not tender, patient with good appetite
#Essential HTN
#HLD
#Hx of CVA with residual L sided weakness
#BPH
#Advanced dementia with behavioral disturbances
#Schizophrenia
psych consult
cont home meds
DVT ppx Eliquis
Full code
I have spent at least 36min reviewing chart, test results, communication with consultants and family and providing direct patient care
Anticipated Discharge: Within 24 hours
Subjective/Interval History
-
Date of Service: June 14, 2025
Objective Data
-
Labs:
Laboratory Results
06/14/25
08:35
Sodium 138
Potassium 5.2 H
Chloride 109 H
Carbon Dioxide 21 L
BUN 64 H
Creatinine 4.0 H
Glucose 182 H
Calcium 8.3 L
Vital Signs:
Vital Signs
Temp Pulse Resp BP Pulse Ox
97.1 F 74 20 116/78 90
06/14/25 08:21 06/14/25 08:21 06/14/25 08:21 06/14/25 08:21 06/14/25 08:21
I&O
06/13/25 06/14/25 06/15/25
06:59 06:59 06:59
Intake Total 400 / 400 1600 / 1600
Output Total 250 / 250
Balance 150 / 150 1600 / 1600
Review of Systems
-
History Source: Patient
All other systems: Reviewed and negative
Physical Exam
-
General: No Apparent Distress
HEENT: Normocephalic
Cardiac: Regular Rhythm
Neuro: Awake and Alert
Psych: Calm and Apparent Dementia
[2025-06-14] MEDS: LOKELMA 10 GRAM PO (10:36)
[2025-06-14 10:37] VITALS: BP 108/72
--- NOTE | 2025-06-14 11:21 | FALL ---
Description of Fall:
The patient has been pacing back and forth with one assist, stand by assist in room from bed to door for activity. His orlin is angled towards the window on the wall with the gloves and patient was standing facing the door with walker. the tech
for 1:1 was standing in front of him but towards the side, the patient, who is very impulsive, from standing position bent knees and attempted to sit into chair at wierd angle and missed the seat. he was lowered to floor by staff.
Injuries Noted:
None, no bruises no pain no visible injury to bones
Action Taken:
assist back to bed to assess, set of vitals, called MD, chair repositioned to be perpendicular to wall to assist with proper body alignment to sit and to allow staff more room to assist patient with ambulation in tight spaces.
Name of Provider Notified: Julian Leon
--- NOTE | 2025-06-14 11:23 | W.PN.NEPH.PH ---
Today's Communication / Plan
-
lokelma
Assessment/Plan
-
IMP:
Acute on Chronic Anemia of CKD
LE Edema
CKD IV
Hypomagnesemia
ASCVD- Prior CABG / Prior CVA.
Paroxysmal Atrial Fibrillation
DM-II
Senile Dementia with Behavioral Disturbance
Schizophrenia
Plan:
follow BMP
off bumex
Not dialysis candidate : due to behavioral disorder
high PVR, follow. may need straight cath, not sure he will tolerate a Escalera
lokelma as needed, may need daily.
Continue bicarbonate
-
-
Date of Service: June 14, 2025
CC / HPI / ROS
-
Chief Complaint:
CKD stage IV
History of Present Illness:
Creatinine 4.0 stable
Hemodynamically stable
DEBRA administration on 06/01/2025
K 5.2
Review of Systems:
No fever
Severe agitation intermittently
Baseline confusion and dementia
Incontinent
Labs
-
Labs:
WBC 7.4 10^3/uL (4.8-10.8) 06/11/25 07:59
RBC 3.51 10^6/uL (4.70-6.10) L 06/11/25 07:59
Hgb 9.5 g/dL (13.0-18.0) L 06/11/25 07:59
Hct 29.9 % (39.0-52.0) L 06/11/25 07:59
Plt Count 221 10^3/uL (130-400) D 06/11/25 07:59
Sodium 138 mmol/L (135-145) 06/14/25 08:35
Potassium 5.2 mmol/L (3.5-5.1) H 06/14/25 08:35
Chloride 109 mmol/L (98-107) H 06/14/25 08:35
Carbon Dioxide 21 mmol/L (22-30) L 06/14/25 08:35
BUN 64 mg/dl (9-20) H 06/14/25 08:35
Creatinine 4.0 mg/dL (0.7-1.3) H 06/14/25 08:35
eGFR 15.15 06/14/25 08:35
Glucose 182 mg/dl (70-99) H 06/14/25 08:35
Calcium 8.3 mg/dl (8.4-10.2) L 06/14/25 08:35
Phosphorus 3.9 mg/dl (2.5-4.5) 06/01/25 06:01
Dtk-O-Mnkijdgbxxv Pept 4650 pg/ml 06/12/25 08:08
Albumin 3.6 g/dl (3.5-5.0) 06/11/25 07:59
Physical Exam
-
Vital Signs:
Vital Signs
Temp Pulse Resp BP Pulse Ox
97.2 F 90 20 108/72 96
06/14/25 10:37 06/14/25 10:37 06/14/25 10:37 06/14/25 10:37 06/14/25 10:37
Cardiovascular:: Regular rate and rhythm
Respiratory:: Bilateral: Coarse
Lung Excursion:: Normal
Abdomen:: Nontender and Soft
Bowel Sounds:: Normal
Extremity Edema:: None: Bilateral:
[2025-06-14 12:09] LABS: Glucose - Point of Care 199 mg/dl (70-99)
[2025-06-14] MEDS: VALIUM INJECTION 2 MG IV (15:58)
[2025-06-14] MEDS: NOVOLOG FLEXPEN SC (16:50)
[2025-06-14] MEDS: NOVOLOG FLEXPEN-MODERATE RESISTANCE SC (16:50)
[2025-06-14] MEDS: ZENPEP DELAYED RELEASE CAPSULE PO (16:51)
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
[2025-06-14 19:29] VITALS: BP 153/83
[2025-06-14] MEDS: MELATONIN 6 MG PO (19:50)
[2025-06-14] MEDS: SODIUM BICARBONATE PO ×2 (21:11→21:25)
[2025-06-14] MEDS: DESYREL PO ×2 (21:11→21:25)
[2025-06-14] MEDS: ZYPREXA PO ×2 (21:12→21:25)
[2025-06-14] MEDS: LIPITOR PO ×2 (21:12→21:25)
[2025-06-14] MEDS: FLOMAX PO ×2 (21:13→21:25)
[2025-06-14] MEDS: APRESOLINE PO ×2 (21:13→21:25)
--- NOTE | 2025-06-14 21:25 | PTCARENOTE ---
This RN attempted to wake pt and give his 2199 medications. Pt started to get aggressive with this RN and stated he is refusing his medication. Pt also refusing blood sugar check at this time.
[2025-06-14 23:00] VITALS: BP 127/67
[2025-06-15 06:00] VITALS: BMI 23.1
[2025-06-15 08:00] LABS: Glucose - Point of Care 137 mg/dl (70-99)
[2025-06-15 08:08] VITALS: BP 158/90
[2025-06-15 08:10] LABS: Blood Urea Nitrogen 64 mg/dl (9-20); Calcium 7.8 mg/dl (8.4-10.2); Carbon Dioxide 19 mmol/L (22-30); Chloride 112 mmol/L (98-107); Estimated Creatinine Clearance 16 ml/min; Glucose 117 mg/dl (70-99); Potassium 4.6 mmol/L (3.5-5.1); Sodium 139 mmol/L (135-145); eGFR 13.89
[2025-06-15] MEDS: PROTONIX 40 MG PO (08:11)
[2025-06-15] MEDS: ZENPEP DELAYED RELEASE CAPSULE 1 CAPSULE PO ×3 (08:11→16:29)
[2025-06-15] MEDS: APRESOLINE 50 MG PO ×3 (08:11→21:01)
[2025-06-15] MEDS: SODIUM BICARBONATE 650 MG PO ×3 (08:11→21:01)
[2025-06-15] MEDS: ELIQUIS 2.5 MG PO ×2 (08:11→20:18)
[2025-06-15] MEDS: VITAMIN D3 (cholecalciferol) 25 MCG PO (08:11)
[2025-06-15] MEDS: TYLENOL 650 MG PO (08:11)
[2025-06-15] MEDS: COREG 25 MG PO ×2 (08:11→20:18)
[2025-06-15] MEDS: FOLVITE 1 MG PO (08:11)
[2025-06-15] MEDS: DESYREL 25 MG PO ×3 (08:12→21:01)
[2025-06-15] MEDS: PLAVIX 75 MG PO (08:12)
[2025-06-15] MEDS: NOVOLOG FLEXPEN-MODERATE RESISTANCE SC ×2 (08:12→16:30)
[2025-06-15] MEDS: NOVOLOG FLEXPEN SC (08:12)
[2025-06-15] MEDS: BUSPAR 10 MG PO ×2 (08:12→20:18)
--- NOTE | 2025-06-15 10:12 | W.PN.NEPH.PH ---
Today's Communication / Plan
-
follow BMP
Assessment/Plan
-
IMP:
Acute on Chronic Anemia of CKD
LE Edema
CKD IV
Hypomagnesemia
ASCVD- Prior CABG / Prior CVA.
Paroxysmal Atrial Fibrillation
DM-II
Senile Dementia with Behavioral Disturbance
Schizophrenia
Plan:
follow BMP
off bumex
Not dialysis candidate : due to behavioral disorder he would pose a risk not only to himself but to dialysis staff while large amounts of his blood is being actively dialyzed
high PVR, follow. may need straight cath, not sure he will tolerate a Escalera
lokelma as needed
Continue bicarbonate
-
-
Date of Service: June 15, 2025
CC / HPI / ROS
-
Chief Complaint:
CKD stage IV
History of Present Illness:
Creatinine 4.3 stable
Hemodynamically stable
DEBRA administration on 06/01/2025
K normal
Review of Systems:
No fever
Severe agitation intermittently
Baseline confusion and dementia
Incontinent
Labs
-
Labs:
WBC 7.4 10^3/uL (4.8-10.8) 06/11/25 07:59
RBC 3.51 10^6/uL (4.70-6.10) L 06/11/25 07:59
Hgb 9.5 g/dL (13.0-18.0) L 06/11/25 07:59
Hct 29.9 % (39.0-52.0) L 06/11/25 07:59
Plt Count 221 10^3/uL (130-400) D 06/11/25 07:59
Sodium 139 mmol/L (135-145) 06/15/25 06:44
Potassium 4.6 mmol/L (3.5-5.1) 06/15/25 06:44
Chloride 112 mmol/L (98-107) H 06/15/25 06:44
Carbon Dioxide 19 mmol/L (22-30) L 06/15/25 06:44
BUN 64 mg/dl (9-20) H 06/15/25 06:44
Creatinine 4.3 mg/dL (0.7-1.3) H* 06/15/25 06:44
eGFR 13.89 06/15/25 06:44
Glucose 117 mg/dl (70-99) H 06/15/25 06:44
Calcium 7.8 mg/dl (8.4-10.2) L 06/15/25 06:44
Phosphorus 3.9 mg/dl (2.5-4.5) 06/01/25 06:01
Fls-R-Grmbttljwwq Pept 50319 pg/ml 06/15/25 06:44
Albumin 3.6 g/dl (3.5-5.0) 06/11/25 07:59
Physical Exam
-
Vital Signs:
Vital Signs
Temp Pulse Resp BP Pulse Ox
97.7 F 81 18 158/90 96
06/15/25 08:08 06/15/25 08:08 06/15/25 08:08 06/15/25 08:08 06/15/25 08:08
Cardiovascular:: Regular rate and rhythm
Respiratory:: Bilateral: Coarse
Lung Excursion:: Normal
Abdomen:: Nontender and Soft
Bowel Sounds:: Normal
Extremity Edema:: None: Bilateral:
--- NOTE | 2025-06-15 10:57 | PTCARENOTE ---
MD alerted on creatinie that went from 4 to 4.3 with 3 pound weight gain 153 to 156. Lung coarse shallow no FRAGA ELLEN no coughing pulse ox 97% on room air HRR +PP no edema[place] [address] Md alerted of large delta from last one. No new orders
at this tme
--- NOTE | 2025-06-15 11:12 | W.PN.HOSP.TC ---
Today's Communication/Plan
-
Bumex since BNP elevated
BMP in AM
Unfortunately was in restraints overnight
Ativan PRN
Assessment / Plan
Assessment / Plan
70yo M with advanced dementia, afib on Eliquis, HTN, CKD, schizophrenia, DM, CAD s/p CABG admitted with anemia, most likely 2/2 CKD stage 4. Also noticed LE swelling. As per family- previous patient on Epo weekly with chronic anemia and as per
nephrology - not dialysis candidate 2/2 advanced dementia. Discharge delayed due to need in restraints. Also developed worsening of hi kidney function on 06/11/25 with worsening sedation due to increased Trazodone. As per detailed discussion with
daughter on 06/11/25: explained BRIDGETTE and patient deemed not to be a candidate for HD. Daughter acknowledged info and plan and still confirmed full code for the patient .Cr remained stable with new baseline around 4.0, acidosis started to improve.
With no additional mgmt planed - medically stable for d/c back to his facility, BMP in 5-7 days
A/P:
#Anemia 2/2 CKD stage 4
#BRIDGETTE
#High PVR - most likely intermittent urinary retention
#Recurrent hyperkalemia 2/2 CKD
#Asymptomatic bacteriuria without pyuria
#metabolic acidosis 2/2 BRIDGETTE
Epo
s/p 1 unit PRBC in ED
Nephro follows: Not a candidate for HD as per environmental web crawler
Lokelma PRN
Bladder scan q6h
FOBT neg
Developed worsening Cr on 06/10/25, that continued to worsen after hyration
No significant urinary retention as pr RN, patient incontinent, PVR in 300ml, cont bladder scan
Follow BMP
Holding Bumex as of 06/11/25
Bicarb
#Fall
on 06/14/25 when attempted to eugene down, but missed the seat and fel to the floor, however 1:1 was able to catch him, so no injury reported
fall precautions
no concern for syncope
#Acute on chronic HFpEF
#NSVT
#CAD s/p CABG
#Paroxysmal Afib
Echo: EF 55-60% with mild aortic root dilation, no clinical significant valvular disease
Cardio followed - diuresis as tolerated
Telemetry
cont rate control
follow electrolytes
#hypomagnesemia
repleted
#Hyperkalemia
mild
unclear reason, maybe high potassium diet, start renal diet
follow
#DM type 2 with nephropathy
AccuCheck, Insulin SS, DM diet
#Diarrhea
2/2 lokelma
follow, clinically
Abd not tender, patient with good appetite
#Essential HTN
#HLD
#Hx of CVA with residual L sided weakness
#BPH
#Advanced dementia with behavioral disturbances
#Schizophrenia
Patient is pretty much not aware of surroundings, severely demented cannot retain any new information or understand his medical condition
psych consult
cont home meds
DVT ppx Eliquis
Full code
I have spent at least 51min reviewing chart, test results, communication with consultants and daughter over the phone and providing direct patient care
Anticipated Discharge: 24 - 48 hours
Subjective/Interval History
-
Date of Service: June 15, 2025
Objective Data
-
Labs:
Laboratory Results
06/15/25
06:44
Sodium 139
Potassium 4.6
Chloride 112 H
Carbon Dioxide 19 L
BUN 64 H
Creatinine 4.3 H*
Glucose 117 H
Calcium 7.8 L
Vital Signs:
Vital Signs
Temp Pulse Resp BP Pulse Ox
97.7 F 81 18 158/90 96
06/15/25 08:08 06/15/25 08:08 06/15/25 08:08 06/15/25 08:08 06/15/25 08:08
I&O
06/14/25 06/15/25 06/16/25
06:59 06:59 06:59
Intake Total 1600 / 1600 1560 / 1560
Output Total 200 / 200
Balance 1600 / 1600 1360 / 1360
Review of Systems
-
Unable to obtain full review of systems at this time due to: Dementia
History Source: Patient
Physical Exam
-
General: No Apparent Distress
Respiratory: Clear to Auscultation
Cardiac: Regular Rhythm
Genito-urinary: No Costovertebral Tender
Musculoskeletal: No Clubbing, No Cyanosis, Edema, Right Lower Extrem and Edema, Left Lower Extrem
Neuro: Awake and Alert
Psych: Calm and Apparent Dementia
[2025-06-15] MEDS: BUMEX 1 MG IV ×2 (11:30→16:30)
[2025-06-15 11:58] LABS: Glucose - Point of Care 215 mg/dl (70-99)
[2025-06-15] MEDS: NOVOLOG FLEXPEN 6 UNITS SC ×2 (12:12→16:30)
[2025-06-15] MEDS: NOVOLOG FLEXPEN-MODERATE RESISTANCE 3 UNITS SC (12:12)
[2025-06-15] MEDS: BUMEX IV (12:12)
--- NOTE | 2025-06-15 13:20 | CM ---
Chart reviewed plan is for patient to return to [facility] when stable, patient is still on 1:1, case operator reached out to nursing and physician to review, patient is very impulsive, call placement to [facility] and provided update.
Plan; Patient to return to [facility] when stable.
[2025-06-15 15:10] VITALS: BP 117/85
[2025-06-15 16:30] LABS: Glucose - Point of Care 133 mg/dl (70-99)
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
[2025-06-15] MEDS: MELATONIN 6 MG PO (20:18)
[2025-06-15] MEDS: ZYPREXA 7.5 MG PO (21:01)
[2025-06-15] MEDS: LIPITOR 40 MG PO (21:01)
[2025-06-15] MEDS: FLOMAX 0.4 MG PO (21:01)
[2025-06-15 21:11] LABS: Glucose - Point of Care 164 mg/dl (70-99)
[2025-06-15 23:00] VITALS: BP 136/75
[2025-06-16 06:00] VITALS: BMI 23.1
[2025-06-16 08:30] VITALS: BP 162/74
[2025-06-16 09:10] LABS: Glucose - Point of Care 162 mg/dl (70-99)
[2025-06-16] MEDS: NOVOLOG FLEXPEN 6 UNITS SC ×3 (09:15→16:42)
[2025-06-16] MEDS: NOVOLOG FLEXPEN-MODERATE RESISTANCE 1 UNITS SC ×2 (09:15→13:41)
[2025-06-16] MEDS: SODIUM BICARBONATE 650 MG PO ×3 (09:16→21:05)
[2025-06-16] MEDS: ELIQUIS 2.5 MG PO ×2 (09:16→21:05)
[2025-06-16] MEDS: ZENPEP DELAYED RELEASE CAPSULE 1 CAPSULE PO ×3 (09:16→15:38)
[2025-06-16] MEDS: PROTONIX 40 MG PO (09:16)
[2025-06-16] MEDS: DESYREL 25 MG PO ×3 (09:17→21:05)
[2025-06-16] MEDS: FOLVITE 1 MG PO (09:17)
[2025-06-16] MEDS: BUSPAR 10 MG PO ×2 (09:17→21:04)
[2025-06-16] MEDS: VITAMIN D3 (cholecalciferol) 25 MCG PO (09:17)
[2025-06-16] MEDS: COREG 25 MG PO ×2 (09:21→21:05)
[2025-06-16] MEDS: PLAVIX 75 MG PO (09:21)
[2025-06-16] MEDS: APRESOLINE 50 MG PO ×3 (09:21→21:05)
[2025-06-16 10:01] LABS: Blood Urea Nitrogen 65 mg/dl (9-20); Calcium 8.2 mg/dl (8.4-10.2); Carbon Dioxide 20 mmol/L (22-30); Chloride 111 mmol/L (98-107); Estimated Creatinine Clearance 17 ml/min; Glucose 140 mg/dl (70-99); Potassium 4.7 mmol/L (3.5-5.1); Sodium 139 mmol/L (135-145); eGFR 15.15
--- NOTE | 2025-06-16 10:29 | W.PN.HOSP.TC ---
Today's Communication/Plan
-
Medically stable for d/c - informed CM
Assessment / Plan
Assessment / Plan
70yo M with advanced dementia, afib on Eliquis, HTN, CKD, schizophrenia, DM, CAD s/p CABG admitted with anemia, most likely 2/2 CKD stage 4. Also noticed LE swelling. As per family- previous patient on Epo weekly with chronic anemia and as per
nephrology - not dialysis candidate 2/2 advanced dementia. Discharge delayed due to need in restraints. Also developed worsening of hi kidney function on 06/11/25 with worsening sedation due to increased Trazodone. As per detailed discussion with
daughter on 06/11/25: explained BRIDGETTE and patient deemed not to be a candidate for HD. Daughter acknowledged info and plan and still confirmed full code for the patient .Cr remained stable with new baseline around 4.0, acidosis started to improve.
With no additional mgmt planed - medically stable for d/c back to his facility, BMP in 5-7 days
A/P:
#Anemia 2/2 CKD stage 4
#BRIDGETTE
#High PVR - most likely intermittent urinary retention
#Recurrent hyperkalemia 2/2 CKD
#Asymptomatic bacteriuria without pyuria
#metabolic acidosis 2/2 BRIDGETTE
Epo
s/p 1 unit PRBC in ED
Nephro follows: Not a candidate for HD as per director housekeeping
Lokelma PRN
Bladder scan q6h
FOBT neg
Developed worsening Cr on 06/10/25, that continued to worsen after hyration
No significant urinary retention as pr RN, patient incontinent, PVR in 300ml, cont bladder scan
Follow BMP
Holding Bumex as of 06/11/25, restarted on 06/15/25 due to elevated proBNP - Cr remains stable on once per day dose
Bicarb
#Fall
on 06/14/25 when attempted to eugene down, but missed the seat and fel to the floor, however 1:1 was able to catch him, so no injury reported
fall precautions
no concern for syncope
#Acute on chronic HFpEF
#NSVT
#CAD s/p CABG
#Paroxysmal Afib
Echo: EF 55-60% with mild aortic root dilation, no clinical significant valvular disease
Cardio followed - diuresis as tolerated
Telemetry
cont rate control
follow electrolytes
#hypomagnesemia
repleted
#Hyperkalemia
mild
unclear reason, maybe high potassium diet, start renal diet
follow
#DM type 2 with nephropathy
AccuCheck, Insulin SS, DM diet
#Diarrhea
2/2 lokelma
follow, clinically
Abd not tender, patient with good appetite
#Essential HTN
#HLD
#Hx of CVA with residual L sided weakness
#BPH
#Advanced dementia with behavioral disturbances
#Schizophrenia
Patient is pretty much not aware of surroundings, severely demented cannot retain any new information or understand his medical condition
psych consult
cont home meds
DVT ppx Eliquis
Full code
I have spent at least 51min reviewing chart, test results, communication with consultants and daughter over the phone and providing direct patient care
Anticipated Discharge: > 48 hours
Subjective/Interval History
-
Date of Service: June 16, 2025
Objective Data
-
Labs:
Laboratory Results
06/16/25
09:13
Sodium 139
Potassium 4.7
Chloride 111 H
Carbon Dioxide 20 L
BUN 65 H
Creatinine 4.0 H
Glucose 140 H
Calcium 8.2 L
Vital Signs:
Vital Signs
Temp Pulse Resp BP Pulse Ox
98.5 F 72 18 162/74 99
06/15/25 23:00 06/16/25 09:21 06/15/25 23:00 06/16/25 09:21 06/15/25 23:00
I&O
06/15/25 06/16/25 06/17/25
06:59 06:59 06:59
Intake Total 1560 / 1560 1800 / 1800
Output Total 200 / 200 250 / 250
Balance 1360 / 1360 1550 / 1550
Review of Systems
-
History Source: Patient
All other systems: Reviewed and negative
--- NOTE | 2025-06-16 11:59 | W.PN.NEPH.PH ---
Today's Communication / Plan
-
see plan
Assessment/Plan
-
IMP:
Acute on Chronic Anemia of CKD
LE Edema
CKD IV
Hypomagnesemia
ASCVD- Prior CABG / Prior CVA.
Paroxysmal Atrial Fibrillation
DM-II
Senile Dementia with Behavioral Disturbance
Schizophrenia
Plan:
Fluctuating cr but over stable at 4
bladder scan/PVR 170cc
stable vol status, monitor off bumex, last dose 06/15 for high BNP
BP stable on coreg and hydralazine
met acidosis stable on po bicarb
follow BMP
check h/h for DEBRA dosing, last one on 06/01
Not dialysis candidate : due to behavioral disorder he would pose a risk not only to himself but to dialysis staff while large amounts of his blood is being actively dialyzed
lokelma as needed
-
-
Date of Service: June 16, 2025
CC / HPI / ROS
-
Chief Complaint:
CKD stage IV
History of Present Illness:
Creatinine 4 stable
Hemodynamically stable
DEBRA administration on 06/01/2025
K normal
Review of Systems:
No fever
Severe agitation intermittently
Baseline confusion and dementia
Incontinent
calm during visit, sitting on bed
offers no complaints
Labs
-
Labs:
WBC 7.4 10^3/uL (4.8-10.8) 06/11/25 07:59
RBC 3.51 10^6/uL (4.70-6.10) L 06/11/25 07:59
Hgb 9.5 g/dL (13.0-18.0) L 06/11/25 07:59
Hct 29.9 % (39.0-52.0) L 06/11/25 07:59
Plt Count 221 10^3/uL (130-400) D 06/11/25 07:59
Sodium 139 mmol/L (135-145) 06/16/25 09:13
Potassium 4.7 mmol/L (3.5-5.1) 06/16/25 09:13
Chloride 111 mmol/L (98-107) H 06/16/25 09:13
Carbon Dioxide 20 mmol/L (22-30) L 06/16/25 09:13
BUN 65 mg/dl (9-20) H 06/16/25 09:13
Creatinine 4.0 mg/dL (0.7-1.3) H 06/16/25 09:13
eGFR 15.15 06/16/25 09:13
Glucose 140 mg/dl (70-99) H 06/16/25 09:13
Calcium 8.2 mg/dl (8.4-10.2) L 06/16/25 09:13
Phosphorus 3.9 mg/dl (2.5-4.5) 06/01/25 06:01
Aui-S-Zbkofnsrnss Pept 31851 pg/ml 06/15/25 06:44
Albumin 3.6 g/dl (3.5-5.0) 06/11/25 07:59
Physical Exam
-
Vital Signs:
Vital Signs
Temp Pulse Resp BP Pulse Ox
97.4 F 72 18 162/74 100
06/16/25 08:30 06/16/25 09:21 06/16/25 08:30 06/16/25 09:21 06/16/25 08:30
Cardiovascular:: Regular rate and rhythm
Respiratory:: Bilateral: CTA
Lung Excursion:: Normal
Abdomen:: Nontender and Soft
Extremity Edema:: None: Bilateral:
Escalera Catheter: No
[2025-06-16 12:11] LABS: Glucose - Point of Care 177 mg/dl (70-99)
[2025-06-16 12:52] LABS: Hematocrit 28.3 % (39.0-52.0); Hemoglobin 8.7 g/dL (13.0-18.0); Mean Corp Hgb Conc. 30.7 g/dL (33.0-37.0); Mean Corpuscular Volume 89.3 fL (80.0-94.0); Nucleated Red Blood Cells % 0.3 % (-); Platelet Count 185 10^3/uL (130-400); Red Cell Dist. Width 19.3 % (11.5-14.5)
--- NOTE | 2025-06-16 13:23 | CM ---
Confused patient who is assisted at [facility]
Spoke with RN pt off restraints Remains on 1:1 for pts impulsivity
Spoke with Gabriela from [facility] reviewed above with Gabriela . She said she will call facility and call back with determination.
PT OT indicates return to [facility]
report [phone]
fax [phone]
PLAN Return to [facility] when accepted
[2025-06-16 15:37] VITALS: BP 160/78
[2025-06-16 16:26] LABS: Glucose - Point of Care 135 mg/dl (70-99)
[2025-06-16] MEDS: NOVOLOG FLEXPEN-MODERATE RESISTANCE SC (16:42)
[2025-06-16] MEDS: RETACRIT 10000 UNITS SC (16:53)
--- NOTE | 2025-06-16 20:53 | W.PN.UPDATE ---
Update Note
Progress Note Update
pt seen for ongoing assessment. events over weekend noted. has been out of restraints for more than 24 hours at this point, has been redirectable, in good spirits. hoping to go home soon; when told he would be going to [place], not daughter's
home, says 'ok whatever is best.' current meds appear to be optimal at this point.
[2025-06-16] MEDS: MELATONIN 6 MG PO (21:04)
[2025-06-16] MEDS: FLOMAX 0.4 MG PO (21:05)
[2025-06-16] MEDS: LIPITOR 40 MG PO (21:05)
[2025-06-16] MEDS: ZYPREXA 7.5 MG PO (21:05)
[2025-06-16] MEDS: REFRESH EYE DROPS (PF) 1 DROPS OPHTH (21:06)
[2025-06-16 21:07] LABS: Glucose - Point of Care 248 mg/dl (70-99)
[2025-06-16 22:20] VITALS: BP 142/65
[2025-06-17] MEDS: ATIVAN 0.5 MG IV (05:11)
[2025-06-17] MEDS: NSS (PRESERVATIVE FREE) 0.25 ML IV (05:12)
[2025-06-17 08:11] VITALS: BP 155/83
[2025-06-17] MEDS: FOLVITE 1 MG PO (08:15)
[2025-06-17] MEDS: ZENPEP DELAYED RELEASE CAPSULE 1 CAPSULE PO ×3 (08:15→15:29)
[2025-06-17] MEDS: APRESOLINE 50 MG PO ×2 (08:15→15:28)
[2025-06-17] MEDS: SODIUM BICARBONATE 650 MG PO ×2 (08:15→15:28)
[2025-06-17] MEDS: PROTONIX 40 MG PO (08:15)
[2025-06-17] MEDS: VITAMIN D3 (cholecalciferol) 25 MCG PO (08:15)
[2025-06-17] MEDS: COREG 25 MG PO (08:16)
[2025-06-17] MEDS: ELIQUIS 2.5 MG PO (08:16)
[2025-06-17] MEDS: BUSPAR 10 MG PO (08:16)
[2025-06-17] MEDS: PLAVIX 75 MG PO (08:16)
[2025-06-17] MEDS: DESYREL 25 MG PO ×2 (08:16→10:30)
[2025-06-17 08:18] LABS: Glucose - Point of Care 201 mg/dl (70-99)
[2025-06-17] MEDS: NOVOLOG FLEXPEN-MODERATE RESISTANCE 3 UNITS SC (08:50)
[2025-06-17] MEDS: NOVOLOG FLEXPEN 6 UNITS SC ×3 (08:51→18:19)
--- NOTE | 2025-06-17 10:59 | VATNOTE ---
Pt IV occluded and leaking with assessment, discontinued. PCN notified, will call me if new IV needed.
--- NOTE | 2025-06-17 11:21 | W.PN.HOSP.TC ---
Addendum entered and electronically signed by Julian Hernandez MD 06/17/25 17:37:
dont use billing under this noter, use dc summary billing instead
Original Note:
Today's Communication/Plan
-
cooperative today - attempt to remove 1:1 so patient can be d/c to [facility]
BMP in AM for Cr and porassium
Assessment / Plan
Assessment / Plan
70yo M with advanced dementia, afib on Eliquis, HTN, CKD, schizophrenia, DM, CAD s/p CABG admitted with anemia, most likely 2/2 CKD stage 4. Also noticed LE swelling. As per family- previous patient on Epo weekly with chronic anemia and as per
nephrology - not dialysis candidate 2/2 advanced dementia. Discharge delayed due to need in restraints. Also developed worsening of hi kidney function on 06/11/25 with worsening sedation due to increased Trazodone. As per detailed discussion with
daughter on 06/11/25: explained BRIDGETTE and patient deemed not to be a candidate for HD. Daughter acknowledged info and plan and still confirmed full code for the patient .Cr remained stable with new baseline around 4.0, acidosis started to improve.
With no additional mgmt planed - medically stable for d/c back to his facility, BMP in 5-7 days
A/P:
#Anemia 2/2 CKD stage 4
#BRIDGETTE
#High PVR - most likely intermittent urinary retention
#Recurrent hyperkalemia 2/2 CKD
#Asymptomatic bacteriuria without pyuria
#metabolic acidosis 2/2 BRIDGETTE
Epo
s/p 1 unit PRBC in ED
Nephro follows: Not a candidate for HD as per slate picker
Lokelma PRN
Bladder scan q6h
FOBT neg
Developed worsening Cr on 06/10/25, that continued to worsen after hyration
No significant urinary retention as pr RN, patient incontinent, PVR in 300ml, cont bladder scan
Follow BMP
Holding Bumex as of 06/11/25, restarted on 06/15/25 due to elevated proBNP - Cr remains stable on once per day dose
Bicarb
#Fall
on 06/14/25 when attempted to eugene down, but missed the seat and fel to the floor, however 1:1 was able to catch him, so no injury reported
fall precautions
no concern for syncope
#Acute on chronic HFpEF
#NSVT
#CAD s/p CABG
#Paroxysmal Afib
Echo: EF 55-60% with mild aortic root dilation, no clinical significant valvular disease
Cardio followed - diuresis as tolerated
Telemetry
cont rate control
follow electrolytes
#hypomagnesemia
repleted
#Hyperkalemia
mild
unclear reason, maybe high potassium diet, start renal diet
follow
#DM type 2 with nephropathy
AccuCheck, Insulin SS, DM diet
#Diarrhea
2/2 lokelma
follow, clinically
Abd not tender, patient with good appetite
#Essential HTN
#HLD
#Hx of CVA with residual L sided weakness
#BPH
#Advanced dementia with behavioral disturbances
#Schizophrenia
Patient is pretty much not aware of surroundings, severely demented cannot retain any new information or understand his medical condition
psych consult
cont home meds
DVT ppx Eliquis
Full code
I have spent at least 36min reviewing chart, test results, communication with consultants and providing direct patient care
Anticipated Discharge: 24 - 48 hours
Subjective/Interval History
-
Date of Service: June 17, 2025
Objective Data
-
Vital Signs:
Vital Signs
Temp Pulse Resp BP Pulse Ox
97.6 F 77 18 155/83 100
06/17/25 08:11 06/17/25 08:11 06/17/25 08:11 06/17/25 08:11 06/17/25 08:11
I&O
06/16/25 06/17/25 06/18/25
06:59 06:59 06:59
Intake Total 1800 / 1800 960 / 960
Output Total 250 / 250
Balance 1550 / 1550 960 / 960
Review of Systems
-
Unable to obtain full review of systems at this time due to: Dementia
History Source: Patient
Physical Exam
-
General: No Apparent Distress
GI: Soft, Nontender and Nondistended
Neuro: Awake and Alert
Psych: Calm and Apparent Dementia
[2025-06-17 12:15] LABS: Glucose - Point of Care 140 mg/dl (70-99)
[2025-06-17] MEDS: REFRESH EYE DROPS (PF) 1 DROPS OPHTH ×2 (12:15→18:16)
[2025-06-17] MEDS: NOVOLOG FLEXPEN-MODERATE RESISTANCE SC (12:16)
[2025-06-17 15:27] VITALS: BP 134/84
[2025-06-17] MEDS: DESYREL 50 MG PO (15:28)
--- NOTE | 2025-06-17 15:38 | W.PN.UPDATE ---
Update Note
Progress Note Update
pt seen for assessment, discussed with nursing staff. had difficult night, and again today angry, trying to get out of bed, has been manageable without restraints. will increase dose of trazodone, give extra dose now (in am). pleasant with me,
thanks me for my efforts on his behalf.
--- NOTE | 2025-06-17 15:51 | PTCARENOTE ---
pt with multiple attempts to leave room stating 'I need to see my '. Aggressive behavior towards multiple staff throughout shift and difficulty calming patient. Received higher dose of scheduled trazodone per psych, see MAR. Patient with bed and
chair alarm plugged in, safe environment maintained, no current complaints. will continue to assess.
--- NOTE | 2025-06-17 16:15 | W.PN.NEPH.PH ---
Today's Communication / Plan
-
follow labs
Assessment/Plan
-
IMP:
Acute on Chronic Anemia of CKD
LE Edema
CKD IV
Hypomagnesemia
ASCVD- Prior CABG / Prior CVA.
Paroxysmal Atrial Fibrillation
DM-II
Senile Dementia with Behavioral Disturbance
Schizophrenia
Plan:
Fluctuating cr but over stable at 4, no labs today
bladder scan/PVR 170cc
stable vol status, monitor off bumex, last dose 06/15 for high BNP
BP stable on coreg and hydralazine
met acidosis stable on po bicarb
follow BMP
follow h/h last DEBRA on 06/16
Not dialysis candidate : due to behavioral disorder he would pose a risk not only to himself but to dialysis staff while large amounts of his blood is being actively dialyzed
lokelma as needed
-
-
Date of Service: June 17, 2025
CC / HPI / ROS
-
Chief Complaint:
CKD stage IV
History of Present Illness:
Creatinine 4 stable on 06/16, no labs today
Hemodynamically stable
DEBRA administration on 06/01/2025, 06/16
K normal
Review of Systems:
No fever
Severe agitation intermittently
Baseline confusion and dementia
Incontinent
calm during visit, sitting on bed
offers no complaints
Labs
-
Labs:
WBC 6.5 10^3/uL (4.8-10.8) 06/16/25 09:13
RBC 3.17 10^6/uL (4.70-6.10) L 06/16/25 09:13
Hgb 8.7 g/dL (13.0-18.0) L 06/16/25 09:13
Hct 28.3 % (39.0-52.0) L 06/16/25 09:13
Plt Count 185 10^3/uL (130-400) 06/16/25 09:13
Sodium 139 mmol/L (135-145) 06/16/25 09:13
Potassium 4.7 mmol/L (3.5-5.1) 06/16/25 09:13
Chloride 111 mmol/L (98-107) H 06/16/25 09:13
Carbon Dioxide 20 mmol/L (22-30) L 06/16/25 09:13
BUN 65 mg/dl (9-20) H 06/16/25 09:13
Creatinine 4.0 mg/dL (0.7-1.3) H 06/16/25 09:13
eGFR 15.15 06/16/25 09:13
Glucose 140 mg/dl (70-99) H 06/16/25 09:13
Calcium 8.2 mg/dl (8.4-10.2) L 06/16/25 09:13
Phosphorus 3.9 mg/dl (2.5-4.5) 06/01/25 06:01
Txy-O-Wmyfssueiit Pept 08421 pg/ml 06/15/25 06:44
Albumin 3.6 g/dl (3.5-5.0) 06/11/25 07:59
Physical Exam
-
Vital Signs:
Vital Signs
Temp Pulse Resp BP Pulse Ox
97.4 F 69 18 134/84 100
06/17/25 15:27 06/17/25 15:27 06/17/25 15:27 06/17/25 15:27 06/17/25 15:27
Cardiovascular:: Regular rate and rhythm
Respiratory:: Bilateral: CTA
Lung Excursion:: Normal
Abdomen:: Nontender and Soft
Extremity Edema:: None: Bilateral: (trace)
Escalera Catheter: No
[2025-06-17 16:59] LABS: Glucose - Point of Care 183 mg/dl (70-99)
--- NOTE | 2025-06-17 17:02 | CM ---
MD indicated discharge today.
Spoke with dgt on phone she was explained IMM she agreed with discharge.
Confused patient who is penitentiary at [facility]
Spoke with RN pt off restraints Remains on 1:1 for pts impulsivity
Spoke with Gabriela from [facility] reviewed above with Gabriela . She said accepted back today
PT OT indicates return to [facility]
Medical nec form completed
[facility]
report [phone]
fax [phone]
PLAN Return to [facility]
--- NOTE | 2025-06-17 17:35 | W.DCSUMMARY ---
Discharge Summary
Discharge Data
Date of Admission: 05/31/25
Date of Discharge: 06/17/25
-
Pending Results: No
Hospital Course
70yo M with advanced dementia, afib on Eliquis, HTN, CKD, schizophrenia, DM, CAD s/p CABG admitted with anemia, most likely 2/2 CKD stage 4. Also noticed LE swelling. As per family- previous patient on Epo weekly with chronic anemia and as per
nephrology - not dialysis candidate 2/2 advanced dementia. Discharge delayed due to need in restraints. Also developed worsening of hi kidney function on 06/11/25 with worsening sedation due to increased Trazodone. As per detailed discussion with
daughter on 06/11/25: explained BRIDGETTE and patient deemed not to be a candidate for HD. Daughter acknowledged info and plan and still confirmed full code for the patient .Cr remained stable with new baseline around 4.0, acidosis started to improve.
With no additional mgmt planed - medically stable for d/c back to his facility, BMP in 5-7 days
I have spent at least 36min reviewing chart, test results, communication with consultants and providing direct patient care
Patient was managed for:
#Anemia 2/2 CKD stage 4
#BRIDGETTE
#High PVR - most likely intermittent urinary retention
#Recurrent hyperkalemia 2/2 CKD
#Asymptomatic bacteriuria without pyuria
#metabolic acidosis 2/2 BRIDGETTE
#Fall
#Acute on chronic HFpEF
#NSVT
#CAD s/p CABG
#Paroxysmal Afib
#hypomagnesemia
#Hyperkalemia
#DM type 2 with nephropathy
#Diarrhea
#Essential HTN
#HLD
#Hx of CVA with residual L sided weakness
#BPH
#Advanced dementia with behavioral disturbances
#Schizophrenia
Discharge Plan
-
Patient Disposition: Intermediate/SNF
Discharge Diagnosis/Procedures: CHF
Diet: Other diet
Additional Diets: Renal
Activity: As tolerated
Blood Work: cbc, bmp weekly
Activity Restrictions/Additional Instructions:
Wound Care Instructions Clean with normal saline, apply adaptic or Xeroform over wounds, cover with silicone border foam. Change Q 48 hours and PRN.
Instructions: *PCP/Other Management Sme Heart Failure Instructions
Referrals:
Scott Sevilla MD [Family Provider]
Additional Discharge Medication Instructions: Weekly erythropoetin depending on Hgb level
Prescriptions:
New
trazodone 50 mg Tablet
50 mg PO TID Qty: 90 0RF
Refresh Classic (PF) 1.4-0.6 % Dropperette
1 drp ophthalmic (eye) QIDPRN PRN (Reason: dry eyes) Qty: 30 0RF
olanzapine 5 mg Tablet
7.5 mg PO HS Qty: 30 0RF
sodium bicarbonate 650 mg Tablet
650 mg PO TID Qty: 90 0RF
Continued
atorvastatin 40 mg Tablet
40 mg PO HS
buspirone 5 mg Tablet
5 mg PO BID
carvedilol 25 mg Tablet
25 mg PO BID
acetaminophen [Tylenol] 325 mg Tablet
650 mg PO Q6H PRN (Reason: mild pain)
cyanocobalamin (vitamin B-12) 100 mcg Tablet
100 mcg PO DAILY
hydralazine 25 mg Tablet
25 mg PO TID
melatonin 3 mg Tablet
6 mg PO HS
clopidogrel 75 mg Tablet
75 mg PO DAILY
lorazepam 0.5 mg Tablet
0.25 mg PO BID PRN (Reason: anxiety)
tamsulosin 0.4 mg Capsule
0.4 mg PO HS
insulin aspart U-100 [Novolog U-100 Insulin aspart] 100 unit/mL Solution
1 sliding scale dose SC DIRECTED
pantoprazole 40 mg Tablet,Delayed Release (Dr/Ec)
40 mg PO DAILY
divalproex [Depakote ER] 500 mg Tablet Extended Release 24 Hr
500 mg PO DAILY
bumetanide 1 mg Tablet
1 mg PO DAILY
folic acid 1 mg Tablet
1 mg PO DAILY
gijwbj-djbozhhr-ogksnoa (pork) 16,000-60,000- 60,000 unit Tablet
1 tab PO AC
escitalopram oxalate [Lexapro] 10 mg Tablet
10 mg PO DAILY
cholecalciferol (vitamin D3) 25 mcg (1,000 unit) Tablet
25 mcg PO DAILY
fluticasone furoate 27.5 mcg/actuation [place],Suspension
1 spray INTRANASAL DAILY
Eliquis 2.5 mg Tablet
2.5 mg PO BID
sodium zirconium cyclosilicate 10 gram Powder In Packet
10 g PO DAILY
Discontinued
trazodone 50 mg Tablet
50 mg PO BID
trifluoperazine 2 mg Tablet
4 mg PO BID
amlodipine 10 mg Tablet
10 mg PO DAILY
Discharge Orders:
Discharge Patient (As Directed); Ordered 06/17/25
Ordered By: Julian Hernandez
Discharge Date and Time
Print Language: [place]
[2025-06-17] MEDS: ATIVAN 0.5 MG PO ×2 (18:16)
[2025-06-17] MEDS: NOVOLOG FLEXPEN-MODERATE RESISTANCE 1 UNITS SC (18:18)
== END 2025-06-17 20:31 | DRG 811 ==
LOC: 3 WEST ACU 23:56
PROVIDERS: Family Medicine; Hospitalist; Specialist; ADMITTING PHYSICIAN Hospitalist; ATTENDING PHYSICIAN Internal Medicine; CONSULT PHYSICIAN Internal Medicine; CONSULT PHYSICIAN Psychiatry & Neurology Psychiatry; EMERGENCY PHYSICIAN Emergency Medicine; FAMILY PHYSICIAN Internal Medicine; OTHER PHYSICIAN Internal Medicine Cardiovascular Disease
PROC: 30233N1 Transfusion of Nonautologous Red Blood Cells into Peripheral Vein, Percutaneous Approach (ICD-10-PCS; 2025-05-31)
DX: D50.9 Iron deficiency anemia, unspecified (principal); I50.33 Acute on chronic diastolic (congestive) heart failure; N18.4 Chronic kidney disease, stage 4 (severe); I13.0 Hypertensive heart and chronic kidney disease with heart failure and stage 1 through stage 4 chronic kidney disease, or unspecified chronic kidney disease; N17.9 Acute kidney failure, unspecified; I47.20 Ventricular tachycardia, unspecified; I69.354 Hemiplegia and hemiparesis following cerebral infarction affecting left non-dominant side; F03.918 Unspecified dementia, unspecified severity, with other behavioral disturbance; F03.94 Unspecified dementia, unspecified severity, with anxiety; E87.20 Acidosis, unspecified; D63.1 Anemia in chronic kidney disease; E87.5 Hyperkalemia; N40.1 Benign prostatic hyperplasia with lower urinary tract symptoms; R33.8 Other retention of urine; I25.10 Atherosclerotic heart disease of native coronary artery without angina pectoris; Z95.1 Presence of aortocoronary bypass graft; I48.0 Paroxysmal atrial fibrillation; E83.42 Hypomagnesemia; F20.9 Schizophrenia, unspecified; Z87.891 Personal history of nicotine dependence; Z79.899 Other long term (current) drug therapy; Z79.01 Long term (current) use of anticoagulants; Z79.02 Long term (current) use of antithrombotics/antiplatelets; Z79.4 Long term (current) use of insulin; Z78.1 Physical restraint status; Z91.041 Radiographic dye allergy status; E11.22 Type 2 diabetes mellitus with diabetic chronic kidney disease; E78.00 Pure hypercholesterolemia, unspecified; K21.9 Gastro-esophageal reflux disease without esophagitis; Z95.0 Presence of cardiac pacemaker
CPT/HCPCS: 36430; 71045; 80048; 80053; 81003; 81015; 82248; 82306; 82607; 82728; 82746; 82962; 83036; 83540; 83550; 83605; 83735; 83880; 84100; 84132; 85014; 85018; 85025; 85027; 85610; 85730; 86850; 86900; 86901; 86920; 87070; 87147; 93005; 93306; 97116; 97163; 97167; 97530; 97535; 99291; J2358; J2916; P9016; Q5106